=== PATIENT | male | born 1950 | race Caucasian/White ===

== ENCOUNTER 2020-05-29 08:17 | Outpatient (REF) | payer MEDICARE, MEDICAID, SELFPAY ==
[2020-05-29 11:01] LABS: MANUAL DIFF FLAG NO
[2020-05-29 11:09] LABS: Basophils Percent Auto 0.4 % (0-2); Eosinophils Absolute Auto 0.2 X10*3/uL (0.0-0.4); Eosinophils Percent Auto 2.1 % (0-4); Hematocrit 45.4 % (42-52); Hemoglobin 14.4 g/dl (14.0-18.0); Imm Gran Abs Auto 0.04 X10*3/uL (0.00-0.03); Imm Gran Pct Auto 0.4 % (0.0-0.4); Lymphocytes Absolute Auto 2.8 X10*3/uL (1.2-4.9); Lymphocytes Percent Auto 30.5 % (20-40); Mean Corpuscular HGB Conc 31.7 g/dl (31.0-36.0); Mean Corpuscular Hemoglobin 27.7 pg (27.0-33.0); Mean Corpuscular Volume 87.3 fL (80-98); Mean Platelet Volume 10.4 fL (9.4-12.4); Monocytes Absolute Auto 0.8 X10*3/uL (0.1-1.2); Monocytes Percent Auto 8.7 % (2-11); Neutrophils Absolute Auto 5.2 X10*3/uL (2.0-8.3); Neutrophils Percent Auto 57.9 % (45-73); Platelet Count 305 X10*3/uL (160-400); Red Cell Distribution Width 17.6 % (11.0-16.0)
[2020-05-29 11:17] LABS: Estimated Average Glucose 126 mg/dL
[2020-05-29 12:02] LABS: TSH reflex Free T4 1.63 mIU/mL (0.32-4.0)
[2020-05-29 12:08] LABS: Alanine Aminotransferase 15 U/L (0-40); Albumin Level 3.3 g/dL (3.5-5.0); Alkaline Phosphatase 80 U/L (39-117); Anion Gap 11 (12-20); Aspartate Amino Transferase 12 U/L (5-37); Bilirubin Total 0.4 mg/dL (0.0-1.0); Blood Urea Nitrogen 6 mg/dL (9-16); Calcium 8.7 mg/dL (8.4-10.2); Carbon Dioxide 32 mmol/L (22-29); Chloride 101 mmol/L (96-108); Cholesterol 108 mg/dL; Estimated Glomerular Filt Rate > 60; Glucose Fasting 111 mg/dL (60-99); HDL Cholesterol 26 mg/dL; LDL Cholesterol Calculated 67 mg/dl; Potassium 4.7 mmol/l (3.3-5.1); Sodium 139 mmol/L (135-145); Total Protein 6.2 g/dL (6.5-8.0); Triglycerides 75 mg/dL
== END 2020-05-29 08:18 | disposition home or self-care (01) ==
LOC: HO.WFDLDS 08:17
PROVIDERS: Visit Provider Family Medicine
DX: I63.9 Cerebral infarction, unspecified (principal); Z00.00 Encounter for general adult medical examination without abnormal findings; R53.1 Weakness; E11.9 Type 2 diabetes mellitus without complications
CPT/HCPCS: 36415; 80053; 80061; 83036; 84443; 85025

== ENCOUNTER 2020-06-14 10:35 | Outpatient (REF) | payer MEDICARE, MEDICAID, SELFPAY | END 2020-06-14 10:36 | disposition home or self-care (01) | LOC: HO.LNP 10:35 | PROVIDERS: Visit Provider Family Medicine | DX: Z20.828 Contact with and (suspected) exposure to other viral communicable diseases (principal) | CPT/HCPCS: U0003 ==

== ENCOUNTER 2020-07-04 | Outpatient (REF) | payer MEDICARE, MEDICAID, SELFPAY ==
[2020-07-05 18:42] LABS: Glucose Urine UA NEG (NEG); Leukocyte Esterase Urine 1+ (NEG); Nitrite Urine POS (NEG); PH 6.5 (5.0-8.0); Urine Blood 1+ (NEG); Urine Ketones NEG (NEG); Urine Protein NEG (NEG-TRACE)
[2020-07-05 18:45] LABS: Appearance Urine CLEAR; Color Urine YELLOW
[2020-07-05 18:49] LABS: Bacteria Urine 3+ /LPF; WBC Urine 30-49 /HPF (0-4)
== END 2020-07-04 00:01 | disposition home or self-care (01) ==
LOC: HO.LNP
PROVIDERS: Visit Provider Family Medicine
DX: I10 Essential (primary) hypertension (principal)
CPT/HCPCS: 81001

== ENCOUNTER 2020-07-05 18:03 | Outpatient (REF) | payer MEDICARE, MEDICAID, SELFPAY | END 2020-07-05 18:04 | disposition home or self-care (01) | LOC: HO.LNP 18:03 | PROVIDERS: Visit Provider Family Medicine | DX: Z13.89 Encounter for screening for other disorder (principal) ==

== ENCOUNTER 2020-07-09 11:26 | Outpatient (REF) | payer MEDICARE, MEDICAID, SELFPAY ==
[2020-07-09 14:33] LABS: Anion Gap 13 (12-20); Blood Urea Nitrogen 8 mg/dL (9-16); Calcium 8.8 mg/dL (8.4-10.2); Carbon Dioxide 29 mmol/L (22-29); Chloride 103 mmol/L (96-108); Estimated Glomerular Filt Rate > 60; Glucose Random 87 mg/dL (60-115); Potassium 4.3 mmol/l (3.3-5.1); Sodium 141 mmol/L (135-145)
== END 2020-07-09 11:27 | disposition home or self-care (01) ==
LOC: HO.WFDLDS 11:26
PROVIDERS: Visit Provider Family Medicine
DX: Z00.00 Encounter for general adult medical examination without abnormal findings (principal); I10 Essential (primary) hypertension
CPT/HCPCS: 36415; 80048

== ENCOUNTER 2020-07-12 16:00 | Outpatient (REF) | payer SELFPAY | END 2020-07-12 16:01 | disposition home or self-care (01) | LOC: HO.LNP 16:00 | PROVIDERS: Visit Provider Family Medicine | DX: I10 Essential (primary) hypertension (principal) | CPT/HCPCS: 87086 ==

== ENCOUNTER 2020-09-25 14:03 | Outpatient (RCR) | payer MEDICARE, MEDICAID, SELFPAY | END 2020-09-26 09:47 | disposition home or self-care (01) | LOC: HO.WCC 14:03 | PROVIDERS: Visit Provider Physician Assistant | DX: E11.621 Type 2 diabetes mellitus with foot ulcer (principal); L97.519 Non-pressure chronic ulcer of other part of right foot with unspecified severity; I69.354 Hemiplegia and hemiparesis following cerebral infarction affecting left non-dominant side | CPT/HCPCS: 99202 ==

== ENCOUNTER 2021-04-02 13:55 | Outpatient (REF) | payer MEDICARE, MEDICAID, SELFPAY ==
--- NOTE | ~2021-04-02 | XR_ITS ---
EXAMINATION: XR ABDOMEN KUB CLINICAL INDICATION: Diarrhea. COMPARISON: None TECHNIQUE: 10 AP supine views of the abdomen and pelvis are submitted. FINDINGS: There is a moderate stool burden. Gas and stool are identified to the level of the rectum. There are distended small bowel loops, with a maximal caliber of 5.1 cm. No free intraperitoneal air is seen on these supine views. There are no unusual soft tissue calcifications seen. There are right upper quadrant surgical clips. No acute osseous abnormality is seen. There are marked degenerative changes of the lumbar spine and hips. There are aortoiliac atherosclerotic calcifications. XR/XR KUB IMPRESSION: There is a moderate colonic stool burden, suggesting possible constipation. There are multiple distended large and small bowel loops, consistent with an adynamic ileus or obstruction. No free intraperitoneal air is seen on these supine views. Recommend follow-up abdominal radiographs, as clinically indicated. A preliminary report was provided by the [facility] on 04/05/2021.
== END 2021-04-02 13:56 | disposition home or self-care (01) ==
LOC: HO.XRAY 13:55
PROVIDERS: PCP Family Medicine; Visit Provider Family Medicine
DX: R19.7 Diarrhea, unspecified (principal); R14.0 Abdominal distension (gaseous); K59.00 Constipation, unspecified
CPT/HCPCS: 74018

== ENCOUNTER 2021-04-08 16:44 | Inpatient (IN) | payer MEDICARE, MEDICAID, SELFPAY ==
--- NOTE | ~2021-04-08 | XR_ITS ---
EXAMINATION: XR CHEST CLINICAL INFORMATION: AMS COMPARISON: None TECHNIQUE: Frontal view of the chest was obtained. FINDINGS: There is mild cardiomegaly with normal pulmonary vascularity. There is ectasia of the thoracic arch. The lungs are expanded and clear. No pleural effusion seen. No gross bony abnormality. XR/XR chest 1V IMPRESSION: Cardiomegaly with ectatic thoracic arch. The lungs are clear.
[2021-04-08 17:02] VITALS: BP 147/78; PULSE 76; RESP 16; TEMP 36.7; O2SAT 96; BMI 33.3
--- NOTE | 2021-04-08 17:16 | ED_ITS ---
HPI - Altered Mental Status General Chief Complaint: General Medical Stated Complaint: crisis Time Seen by Provider: 04/08/21 20:15 Source: patient and EMS Mode of arrival: EMS Limitations: altered mental status History of Present Illness HPI narrative: 70-year-old male presents via EMS, retirement resident with chr gloria Graff, sent to the ED for evaluation from primary care physician's office for visual and possible auditory hallucinations. Patient stated that he feels like that he is floating, that when he wakes up he feels like that his room is above the ground and that he is floating in a cloud. States that this has been going on for the past 3 or 4 days. 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 He is a poor historian. MD complaint: altered mental status and confusion Onset (ago): day(s) Timing confirmed by: caregiver Severity: moderate Consistency of symptoms: waxing and waning Context: unknown Associated symptoms: denies other symptoms Related Data Home Medications Medication Instructions Recorded Confirmed varicella-zoster glycoE [id number] IM 06/13/20 03/21/21 adj(PF) 50 mcg/0.5 mL IM susp, kit fluoxetine 10 mg capsule mg PO 07/11/20 03/21/21 Previous Rx's Medication Instructions Recorded carbamide peroxide 6.5 % ear drops 5 drp OTIC (EAR) LEFT .COMPLEX PRN 05/28/20 (Debrox) 4 Days #30 ml atorvastatin 20 mg tablet (Lipitor) 20 mg PO BEDTIME #90 tab 06/04/20 acetaminophen 325 mg tablet 650 mg PO Q4H PRN #240 tab 07/04/20 (Tylenol) amlodipine 10 mg tablet 10 mg PO DAILY 90 Days #90 tab 07/04/20 fluoxetine 40 mg capsule 50 mg PO DAILY #90 cap 07/04/20 dextromethorphan-guaifenesin 10 10 ml PO Q6H PRN 30 Days #500 ml 07/19/20 mg-100 mg/5 mL oral liquid (Siltussin DM HOWARD) sennosides 8.6 mg capsule (senna) 8.6 mg PO Q24H PRN #90 cap 07/23/20 metoprolol succinate 50 mg 50 mg PO DAILY 90 Days #90 tab 07/31/20 tablet,extended release 24 hr docusate sodium 100 mg capsule 100 mg PO BID #180 cap 08/23/20 (Colace) diclofenac sodium 1 % topical gel 4 g TOPICAL BID 30 Days #400 g 10/29/20 (Arthritis Pain (diclofenac)) budesonide-formoterol HFA 160 2 puff INHALATION BID #10.2 g 01/29/21 mcg-4.5 mcg/actuation aerosol inhaler (Symbicort) pregabalin 200 mg capsule 200 mg PO BID 30 Days #60 cap 01/29/21 aspirin 81 mg tablet,delayed 81 mg PO DAILY #90 tab 02/25/21 release (Adult Aspirin Regimen) ferrous sulfate 325 mg (65 mg 325 mg PO DAILY #90 tab 02/25/21 iron) tablet folic acid 1 mg tablet 1 mg PO DAILY #90 tab 02/25/21 metformin 500 mg tablet 500 mg PO DAILY #90 tab 02/25/21 tamsulosin 0.4 mg capsule (Flomax) 0.4 mg PO BEDTIME #90 cap 02/25/21 baclofen 10 mg tablet 10 mg PO TID 90 Days #270 tab 03/06/21 baclofen 20 mg tablet 20 mg PO TID 90 Days #270 tab 03/06/21 bisacodyl 10 mg/30 mL enema (Fleet 5 mg HI DAILY PRN 30 Days #888 ml 03/15/21 Bisacodyl) magnesium hydroxide 400 mg/5 mL 30 ml PO BEDTIME PRN 30 Days #900 03/15/21 oral suspension (Milk of Magnesia) ml sennosides 8.6 mg tablet (Natural 8.6 mg PO BEDTIME PRN 30 Days #30 03/15/21 Senna Laxative) tab zinc oxide 13 % topical cream 1 appl TOPICAL BID-QID PRN 30 Days 03/21/21 (Desitin Rapid Relief) #57 g apixaban 5 mg tablet (Eliquis) 5 mg PO BID 30 Days #60 tab 03/27/21 thiamine HCl (vitamin B1) 100 mg 100 mg PO DAILY #90 tab 03/27/21 tablet Allergies Allergy/AdvReac Type Severity Reaction Status Date / Time No Known Allergies Allergy Verified 03/21/21 16:22 Review of Systems Review of Systems: Constitutional: Positive confusion, No Fever, No Chills ENT/Mouth: No Ear Pain, No Nasal Congestion, No sore throat Eyes: No Eye Pain, No Swelling, No Redness Cardiovascular: No Chest Pain, No SOB Respiratory: No Cough, No Sputum, No Dyspnea Gastrointestinal: No Nausea, No Vomiting, No Diarrhea, No Hematochezia, No Melena Genitourinary: Chronic Graff Musculoskeletal: No Myalgias Skin: No Skin Lesions, No rash Neuro: Chronic left-sided Weakness, No Numbness, No Paresthesias, No Dizziness, No Headache Psych: Positive visual and auditory hallucinations, Anxiety, no Depression, no SI/HI Heme/Lymph: No Lymphadenopathy Endocrine: No Polyuria, No Polydipsia Yes all other systems are reviewed and are negative [facility] Past Medical History Attestation statement: The following information was validated with the patient. Source: old records reviewed Surgical History History of cholecystectomy Family History Family History Mother No problems noted. Father No problems noted. Social History Social History Alcohol intake: current Alcohol intake frequency: 0-2 drinks per day Cigarettes Per Day: 6 Advance Directives: No Advance Directives Information Provided: No Physical Exam Vital Signs: Vital Signs: Last Vital Signs Temp 98.1 F 04/08/21 17:02 Pulse 76 04/08/21 17:02 Resp 16 04/08/21 17:02 BP 147/78 H 04/08/21 17:02 Pulse Ox 96 04/08/21 17:02 Body Mass Index 33.3 Appearance: Alert. Oriented x2. No acute distress. Eyes: Pupils equal, round and reactive to light. No nystagmus. Sclera nonicteric. ENT: Pharynx normal. Moist mucous membranes. Neck: Normal inspection. Neck supple. CVS: Normal heart rate and rhythm. Pulses normal. Respiratory: No respiratory distress. Breath sounds normal. Abdomen: Soft and nontender. Obese. Skin: Skin warm and dry. Normal skin color. Normal skin turgor. Extremities: No lower extremity edema. Left-sided contracture per baseline. Nonambulatory. Neuro: No motor deficit. No sensory deficit. Course Course Course Narrative: 70-year-old male [facility] care physician's office for altered mental status. States that he has been waking up in the middle night and feels like his room is floating and air, and has felt like this for the past few days. He does have history of CVA, chronic Graff. Patient is nonambulatory per baseline, has left-sided contracture. Triage initial complaint is crisis eval, I do not feel that this is an appropriate chief complaint, I feel this is more altered mental status and more medically based and psychologically based. Crisis consult will not be ordered at this time. 7:24 p.m. labs still pending draw. 8:14 p.m. urinalysis positive for leukocyte esterase, will start Levaquin as patient does have Graff. Will start fluid resuscitation empirically. 9:45 p.m. discussion with hospitalist, plan of care is to admit for UTI. Consultations Consultation #1: Eliana Time: 21:45 MDM - Altered Mental Status MDM Narrative Medical decision making narrative: UTI Differential Diagnosis Differential diagnosis: Likely altered mental status, delirium, dementia, encephalopathy, hypoglycemia, renal failure and sepsis Medical Records Attestation: I reviewed the patient's medical records. Lab Data Attestation: I reviewed the patient's lab results. Result diagrams: 04/08/21 20:19 04/08/21 20:17 Labs: Lab Results 04/08/21 04/08/21 04/08/21 Range/Units 20:02 20:02 20:17 WBC (4.8-10.8) X10*3/uL RBC (4.60-5.80) X10*6/uL Hgb (14.0-18.0) g/dl Hct (42-52) % MCV (80-98) fL MCH (27.0-33.0) pg MCHC (31.0-36.0) g/dl RDW (11.0-16.0) % Plt Count (160-400) X10*3/uL MPV (9.4-12.4) fL Immature Gran % (Auto) (0.0-0.4) % Neut % (Auto) (45-73) % Lymph % (Auto) (20-40) % [place] % (Auto) (2-11) % Eos % (Auto) (0-4) % Baso % (Auto) (0-2) % Lymph # (Auto) (1.2-4.9) X10*3/uL [place] # (Auto) (0.1-1.2) X10*3/uL Eos # (Auto) (0.0-0.4) X10*3/uL Baso # (Auto) (0.0-0.2) X10*3/uL Abs Immat Gran (auto) (0.00-0.03) X10*3/uL Absolute Neuts (auto) (2.0-8.3) X10*3/uL Absolute Nucleated RBC (0.0-0.012) X10*3/uL Nucleated RBC % (auto) (0.0-0.2) /100WBC Sodium 139 (135-145) mmol/L Potassium 4.0 (3.3-5.1) mmol/L Chloride 106 (96-108) mmol/L Carbon Dioxide 27 (22-29) mmol/L Anion Gap 10 L (12-20) BUN 8 L (9-16) mg/dL Creatinine 0.62 (0.5-1.4) mg/dL Estim Creat Clear Calc 155.6 Estimated GFR > 60 Random Glucose 94 (60-115) mg/dL Lactic Acid (0.5-2.0) mmol/L Calcium 8.8 (8.4-10.2) mg/dL Total Bilirubin 0.3 (0.0-1.0) mg/dL Direct Bilirubin 0.2 (0.0-0.5) mg/dL AST 10 (5-37) U/L ALT 14 (0-40) U/L Alkaline Phosphatase 67 (39-117) U/L Troponin I High Sens (<3.5-35.0) ng/L Total Protein 6.2 L (6.5-8.0) g/dL Albumin 3.3 L (3.5-5.0) g/dL Lipase 21 (8-78) U/L Urine Color YELLOW Urine Appearance CLEAR Urine pH 6.5 (5.0-8.0) Ur Specific [place] 1.020 (1.005-1.025) Urine Protein TRACE (NEG-TRACE) MG/DL Urine Glucose (UA) NEG (NEG) MG/DL Urine Ketones NEG (NEG) MG/DL Urine Blood TRACE (NEG) Urine Nitrite NEG (NEG) Ur Leukocyte Esterase 3+ H (NEG) Urine RBC 1-4 (0) /HPF Urine WBC 15-29 H (0-4) /HPF Ur Squamous Epith Cells TRACE /LPF Urine Bacteria 3+ /LPF Coronavirus (PCR) NEGATIVE (Negative) Influenza Type A (PCR) NEGATIVE (Negative) Influenza Type B (PCR) NEGATIVE (Negative) RSV RNA Qual (PCR) NEGATIVE (Negative) 04/08/21 04/08/21 04/08/21 Range/Units 20:17 20:19 20:19 WBC 10.2 (4.8-10.8) X10*3/uL RBC 4.26 L (4.60-5.80) X10*6/uL Hgb 10.7 L D (14.0-18.0) g/dl Hct 33.7 L D (42-52) % MCV 79.1 L (80-98) fL MCH 25.1 L (27.0-33.0) pg MCHC 31.8 (31.0-36.0) g/dl RDW 18.7 H (11.0-16.0) % Plt Count 464 H D (160-400) X10*3/uL MPV 9.5 (9.4-12.4) fL Immature Gran % (Auto) 0.3 (0.0-0.4) % Neut % (Auto) 63.6 (45-73) % Lymph % (Auto) 25.4 (20-40) % [place] % (Auto) 8.7 (2-11) % Eos % (Auto) 1.7 (0-4) % Baso % (Auto) 0.3 (0-2) % Lymph # (Auto) 2.6 (1.2-4.9) X10*3/uL [place] # (Auto) 0.9 (0.1-1.2) X10*3/uL Eos # (Auto) 0.2 (0.0-0.4) X10*3/uL Baso # (Auto) 0.0 (0.0-0.2) X10*3/uL Abs Immat Gran (auto) 0.03 (0.00-0.03) X10*3/uL Absolute Neuts (auto) 6.5 (2.0-8.3) X10*3/uL Absolute Nucleated RBC 0.000 (0.0-0.012) X10*3/uL Nucleated RBC % (auto) 0.0 (0.0-0.2) /100WBC Sodium (135-145) mmol/L Potassium (3.3-5.1) mmol/L Chloride (96-108) mmol/L Carbon Dioxide (22-29) mmol/L Anion Gap (12-20) BUN (9-16) mg/dL Creatinine (0.5-1.4) mg/dL Estim Creat Clear Calc Estimated GFR Random Glucose (60-115) mg/dL Lactic Acid 1.1 (0.5-2.0) mmol/L Calcium (8.4-10.2) mg/dL Total Bilirubin (0.0-1.0) mg/dL Direct Bilirubin (0.0-0.5) mg/dL AST (5-37) U/L ALT (0-40) U/L Alkaline Phosphatase (39-117) U/L Troponin I High Sens 37.2 H* (<3.5-35.0) ng/L Total Protein (6.5-8.0) g/dL Albumin (3.5-5.0) g/dL Lipase (8-78) U/L Urine Color Urine Appearance Urine pH (5.0-8.0) Ur Specific [place] (1.005-1.025) Urine Protein (NEG-TRACE) MG/DL Urine Glucose (UA) (NEG) MG/DL Urine Ketones (NEG) MG/DL Urine Blood (NEG) Urine Nitrite (NEG) Ur Leukocyte Esterase (NEG) Urine RBC (0) /HPF Urine WBC (0-4) /HPF Ur Squamous Epith Cells /LPF Urine Bacteria /LPF Coronavirus (PCR) (Negative) Influenza Type A (PCR) (Negative) Influenza Type B (PCR) (Negative) RSV RNA Qual (PCR) (Negative) Imaging Data Chest x-ray: Attestation: I personally reviewed and interpreted this imaging study as follows: Radiologist's impression: EXAMINATION: XR CHEST CLINICAL INFORMATION: AMS COMPARISON: None TECHNIQUE: Frontal view of the chest was obtained. FINDINGS: There is mild cardiomegaly with normal pulmonary vascularity. There is ectasia of the thoracic arch. The lungs are expanded and clear. No pleural effusion seen. No gross bony abnormality. XR/XR chest 1V IMPRESSION: Cardiomegaly with ectatic thoracic arch. The lungs are clear. ECG Data ECG #1: Attestation: I personally reviewed and interpreted this ECG as follows: ECG interpretation date: 04/08/21 ECG interpretation time: 20:09 Prior ECG tracings: not available for review Interpretation: Vent. rate 73 BPM HI interval * ms QRS duration 72 ms QT/QTc 438/482 ms P-R-T axes * 52 97 Accelerated Junctional rhythm Nonspecific T wave abnormality Abnormal ECG No previous ECGs available Critical Care Time Critical Care Time Critical Care Time: Yes Total Critical Care Time: 45 Attestation: I have personally provided critical care time exclusive of time spent on separately billable procedures. Time includes review of laboratory data, radiology results, discussion with consultants, and monitoring for potential decompensation. Interventions were performed as documented. Discharge Plan Discharge Clinical Impression: Complicated UTI (urinary tract infection) Patient Disposition: Admitted As Inpatient
--- NOTE | 2021-04-08 17:17 | ECG_ITS ---
Test Reason : ALTERED MENTAL Blood Pressure : / mmHG Vent. Rate : 073 BPM Atrial Rate : 500 BPM P-R Int : 000 ms QRS Dur : 072 ms QT Int : 438 ms P-R-T Axes : 000 052 097 degrees QTc Int : 482 ms Poor data quality, interpretation may be adversely affected Normal sinus rhythm Nonspecific T wave abnormality Abnormal ECG No previous ECGs available Referred By: Sandi Fortune Electronically Signed By:MOISES AYALA
[2021-04-08 20:11] LABS: Appearance Urine CLEAR; Color Urine YELLOW; Glucose Urine UA NEG (NEG); Leukocyte Esterase Urine 3+ (NEG); Nitrite Urine NEG (NEG); PH 6.5 (5.0-8.0); UACC Culture Trigger YES; Urine Blood TRACE (NEG); Urine Ketones NEG (NEG); Urine Protein TRACE MG/DL (NEG-TRACE)
[2021-04-08 20:19] LABS: Squamous Epithelial Cell Urine TRACE /LPF
[2021-04-08 20:21] LABS: Bacteria Urine 3+ /LPF
[2021-04-08 20:26] LABS: MANUAL DIFF FLAG NO
[2021-04-08 20:30] LABS: Basophils Percent Auto 0.3 % (0-2); Eosinophils Absolute Auto 0.2 X10*3/uL (0.0-0.4); Eosinophils Percent Auto 1.7 % (0-4); Hematocrit 33.7 % (42-52); Hemoglobin 10.7 g/dl (14.0-18.0); Imm Gran Abs Auto 0.03 X10*3/uL (0.00-0.03); Imm Gran Pct Auto 0.3 % (0.0-0.4); Lymphocytes Absolute Auto 2.6 X10*3/uL (1.2-4.9); Lymphocytes Percent Auto 25.4 % (20-40); Mean Corpuscular HGB Conc 31.8 g/dl (31.0-36.0); Mean Corpuscular Hemoglobin 25.1 pg (27.0-33.0); Mean Corpuscular Volume 79.1 fL (80-98); Mean Platelet Volume 9.5 fL (9.4-12.4); Monocytes Absolute Auto 0.9 X10*3/uL (0.1-1.2); Monocytes Percent Auto 8.7 % (2-11); Neutrophils Absolute Auto 6.5 X10*3/uL (2.0-8.3); Neutrophils Percent Auto 63.6 % (45-73); Platelet Count 464 X10*3/uL (160-400); Red Blood Count 4.26 X10*6/uL (4.60-5.80); Red Cell Distribution Width 18.7 % (11.0-16.0); White Blood Count 10.2 X10*3/uL (4.8-10.8)
[2021-04-08 20:40] LABS: Lactic Acid 1.1 mmol/L (0.5-2.0)
[2021-04-08 20:45] LABS: Alanine Aminotransferase 14 U/L (0-40); Albumin Level 3.3 g/dL (3.5-5.0); Alkaline Phosphatase 67 U/L (39-117); Anion Gap 10 (12-20); Aspartate Amino Transferase 10 U/L (5-37); Bilirubin Direct 0.2 mg/dL (0.0-0.5); Bilirubin Total 0.3 mg/dL (0.0-1.0); Blood Urea Nitrogen 8 mg/dL (9-16); Calcium 8.8 mg/dL (8.4-10.2); Carbon Dioxide 27 mmol/L (22-29); Chloride 106 mmol/L (96-108); Creatinine Clr Calc Pharmacy 155.6; Estimated Glomerular Filt Rate > 60; Glucose Random 94 mg/dL (60-115); Lipase 21 U/L (8-78); Sodium 139 mmol/L (135-145); Total Protein 6.2 g/dL (6.5-8.0)
[2021-04-08] MEDS: 0.9 % Sodium Chloride 1,000 ML 999 ML IVCONT (20:50)
[2021-04-08 20:54] LABS: Troponin-I High Sensitivity 37.2 ng/L (<3.5-35.0)
[2021-04-08] MEDS: levoFLOXacin/D5W 750 MG/150 ML PIGGYBACK 100 MG IV (21:02)
[2021-04-08 21:19] LABS: Influenza A PCR NEGATIVE (Negative); Influenza B PCR NEGATIVE (Negative); Resp Syncy Virus RNA Qual PCR NEGATIVE (Negative); SARS COV2 PCR INHOUSE NEGATIVE (Negative)
[2021-04-09 02:55] LABS: Amphetamine Screen Urine Not Detected (Not Detect); Barbiturates, Urine Not Detected (Not Detect); Benzodiazepines Screen Urine Not Detected (Not Detect); Cannabinoid Screen Urine Not Detected (Not Detect); Cocaine Screen Urine Not Detected (Not Detect); Fentanyl, urine POSITIVE (Not Detect); Opiate Screen Urine Not Detected (Not Detect); Phencyclidine Screen Urine Not Detected (Not Detect)
--- NOTE | 2021-04-09 06:13 | P.HPHOSP_ITS ---
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 Patient is alert and oriented x3, but reports that he has been seeing things. For the past 2 days. He reports no auditory hallucinations. He does report also drinking alcohol daily about 1 nebs a day, his last drink was 2 days ago and that was due to his inability to obtain any alcohol at [place] [facility]. Patient denies having any fevers or chills, no chest pain, no shortness of breath, no abdominal pain nausea or vomiting, no diarrhea or constipation, no lower extremity edema. No headache change in vision or new weakness numbness or tingling. On arrival to the ED patient hemodynamically stable with no significant abnormal vitals Labs are significant for WBC of 10.2, hemoglobin of 10.7, troponin of 37.2, patient denies any chest pain UA that is positive fo leukocyte Estrace and WBC, UDS positive for fentanyl, COVID-19 negative Patient will be admitted for further management Review of Systems Review of Systems: Yes all other systems are reviewed and are negative [facility] Medical History COPD (chronic obstructive pulmonary disease) CVA (cerebral vascular accident) Diabetes type 2, controlled DVT (deep venous thrombosis) Essential hypertension Ileus Incontinence of feces Incontinence of urine Pressure ulcer, buttock Spastic paralysis Family History Mother No problems noted. Father No problems noted. Pertinent family history: No pertinent history Surgical History History of cholecystectomy Social History Alcohol intake: current Alcohol intake frequency: 0-2 drinks per day Cigarettes Per Day: 6 Advance Directives: No Advance Directives Information Provided: No Meds Allergies Allergy/AdvReac Type Severity Reaction Status Date / Time No Known Allergies Allergy Verified 03/21/21 16:22 Home Medications Medication Instructions Recorded Confirmed Last Taken Type fluoxetine 10 mg capsule 10 mg PO DAILY 07/11/20 04/09/21 Unknown History budesonide-formoterol HFA 160 2 puff INHALATION DAILY 04/09/21 04/09/21 Unknown History mcg-4.5 mcg/actuation aerosol inhaler (Symbicort) clonazepam 0.5 mg tablet 1 tab PO BID PRN 04/09/21 04/09/21 Unknown History gabapentin 100 mg capsule 2 cap PO DAILY 04/09/21 04/09/21 Unknown History losartan 100 mg tablet 1 tab PO DAILY 04/09/21 04/09/21 Unknown History spironolactone 25 mg tablet 1 tab PO BID 04/09/21 04/09/21 Unknown History Physical Exam Vital Signs and Narrative: Vital Signs: Last Vital Signs Temp 98.1 F 04/08/21 17:02 Pulse 76 04/08/21 17:02 Resp 16 04/08/21 17:02 BP 147/78 H 04/08/21 17:02 Pulse Ox 96 04/08/21 17:02 Body Mass Index 33.3 Results Labs CBC and Chem 7: 04/08/21 20:19 04/08/21 20:17 Labs: Laboratory Results - last 24 hr 04/08/21 04/08/21 04/08/21 20:02 20:02 20:17 MCV MCH MCHC RDW Plt Count MPV Immature Gran % (Auto) Neut % (Auto) Lymph % (Auto) [place] % (Auto) Eos % (Auto) Baso % (Auto) Lymph # (Auto) [place] # (Auto) Eos # (Auto) Baso # (Auto) Abs Immat Gran (auto) Absolute Neuts (auto) Absolute Nucleated RBC Nucleated RBC % (auto) Anion Gap 10 L Estim Creat Clear Calc 155.6 Estimated GFR > 60 Random Glucose 94 Lactic Acid Calcium 8.8 Total Bilirubin 0.3 Direct Bilirubin 0.2 AST 10 ALT 14 Alkaline Phosphatase 67 Troponin I High Sens Total Protein 6.2 L Albumin 3.3 L Lipase 21 Urine Color YELLOW Urine Appearance CLEAR Urine pH 6.5 Ur Specific [place] 1.020 Urine Protein TRACE Urine Glucose (UA) NEG Urine Ketones NEG Urine Blood TRACE Urine Nitrite NEG Ur Leukocyte Esterase 3+ H Urine RBC 1-4 Urine WBC 15-29 H Ur Squamous Epith Cells TRACE Urine Bacteria 3+ Urine Opiates Screen Urine Fentanyl Screen Ur Barbiturates Screen Ur Phencyclidine Scrn Ur Amphetamines Screen U Benzodiazepines Scrn Urine Cocaine Screen U Marijuana (THC) Screen Coronavirus (PCR) NEGATIVE Influenza Type A (PCR) NEGATIVE Influenza Type B (PCR) NEGATIVE RSV RNA Qual (PCR) NEGATIVE 04/08/21 04/08/21 04/08/21 20:17 20:19 20:19 MCV 79.1 L MCH 25.1 L MCHC 31.8 RDW 18.7 H Plt Count 464 H D MPV 9.5 Immature Gran % (Auto) 0.3 Neut % (Auto) 63.6 Lymph % (Auto) 25.4 [place] % (Auto) 8.7 Eos % (Auto) 1.7 Baso % (Auto) 0.3 Lymph # (Auto) 2.6 [place] # (Auto) 0.9 Eos # (Auto) 0.2 Baso # (Auto) 0.0 Abs Immat Gran (auto) 0.03 Absolute Neuts (auto) 6.5 Absolute Nucleated RBC 0.000 Nucleated RBC % (auto) 0.0 Anion Gap Estim Creat Clear Calc Estimated GFR Random Glucose Lactic Acid 1.1 Calcium Total Bilirubin Direct Bilirubin AST ALT Alkaline Phosphatase Troponin I High Sens 37.2 H* Total Protein Albumin Lipase Urine Color Urine Appearance Urine pH Ur Specific [place] Urine Protein Urine Glucose (UA) Urine Ketones Urine Blood Urine Nitrite Ur Leukocyte Esterase Urine RBC Urine WBC Ur Squamous Epith Cells Urine Bacteria Urine Opiates Screen Urine Fentanyl Screen Ur Barbiturates Screen Ur Phencyclidine Scrn Ur Amphetamines Screen U Benzodiazepines Scrn Urine Cocaine Screen U Marijuana (THC) Screen Coronavirus (PCR) Influenza Type A (PCR) Influenza Type B (PCR) RSV RNA Qual (PCR) 04/09/21 01:52 MCV MCH MCHC RDW Plt Count MPV Immature Gran % (Auto) Neut % (Auto) Lymph % (Auto) [place] % (Auto) Eos % (Auto) Baso % (Auto) Lymph # (Auto) [place] # (Auto) Eos # (Auto) Baso # (Auto) Abs Immat Gran (auto) Absolute Neuts (auto) Absolute Nucleated RBC Nucleated RBC % (auto) Anion Gap Estim Creat Clear Calc Estimated GFR Random Glucose Lactic Acid Calcium Total Bilirubin Direct Bilirubin AST ALT Alkaline Phosphatase Troponin I High Sens Total Protein Albumin Lipase Urine Color Urine Appearance Urine pH Ur Specific [place] Urine Protein Urine Glucose (UA) Urine Ketones Urine Blood Urine Nitrite Ur Leukocyte Esterase Urine RBC Urine WBC Ur Squamous Epith Cells Urine Bacteria Urine Opiates Screen Not Detected Urine Fentanyl Screen POSITIVE H Ur Barbiturates Screen Not Detected Ur Phencyclidine Scrn Not Detected Ur Amphetamines Screen Not Detected U Benzodiazepines Scrn Not Detected Urine Cocaine Screen Not Detected U Marijuana (THC) Screen Not Detected Coronavirus (PCR) Influenza Type A (PCR) Influenza Type B (PCR) RSV RNA Qual (PCR) ECG Interpretation: Accelerated junctional rhythm with nonspecific T-wave abnormality Imaging Radiologist's Impressions: Impressions Chest X-Ray 04/08/21 17:16 IMPRESSION: Cardiomegaly with ectatic thoracic arch. The lungs are clear. Assessment and Plan (1) Complicated UTI (urinary tract infection): Status: Acute (2) Visual hallucinations: Status: Acute (3) Alcohol abuse: Status: Acute 70-year-old male with past medical history significant for COPD, diabetes, hypertension among others as well as CVA with left-sided hemiparesis and spastic score is does complain of visual hallucinations found to have acute UTI # UTI - has chronic Graff catheter stew to his urinary incontinence for patient - positive UA - will start him on IV antibiotics - follow cultures # visual hallucinations - most likely secondary to acute infection versus alcohol withdrawal delirium less likely versus poly polypharmacy - treat UTI as above - will also place patient on phenobarb for possible alcohol withdrawal - monitor for resolution # alcohol abuse with potential for alcohol withdrawal - patient daily drinker with last drink 2 days ago - will start him on phenobarb protocol - thiamine and folic acid supplement # hypertension - stable - continue home medications # diabetes - hold oral antihyperglycemics - will place him on low-dose sliding scale insulin - diabetic diet # patient on multiple psych medications as well as QT prolonging medications, QT is slightly prolonged at 482 - will have to monitor on telemetry # spastic paralysis - continue baclofen # history of DVT - continue apixaban DVT prophylaxis: Apixaban Quality Stroke Does the patient have a stroke diagnosis?: No VTE Prior VTE?: No VTE Risk Level:: Medical - moderate - high VTE Device Contraindication: Treatment Not Indicated VTE Drug Contraindication: N/A - Med Ordered
[2021-04-09 08:03] LABS: Glucose, Whole Blood 92 mg/dL (60-115)
--- NOTE | 2021-04-09 08:46 | P.PNIM_ITS ---
Subjective Subjective Date of Service: 04/09/21 Interval History: cc: hallucincations currently denying hallucincations, but says he was having them before, does not appear to be delusional, denies dysuria Cardiovascular Cardiovascular: Reports no additional cardiovascular complaints Respiratory Respiratory: Reports no additional respiratory complaints Physical Exam Vital Signs: Vital Signs: Last Vital Signs Temp 98.1 F 04/08/21 17:02 Pulse 76 04/08/21 17:02 Resp 16 04/08/21 17:02 BP 147/78 H 04/08/21 17:02 Pulse Ox 96 04/08/21 17:02 Body Mass Index 33.3 General: AO X 2 - did not know he was in hospital, no acute distress Resp: CTA bilateral, no accessory muscles used CVS: S1,S2,RRR GI: soft, non tender, non distended Neuro: left hemiparesis, contractions on lue Psych: flat affect, reports visual hallucinations, though not currently Objective Data Active Medications Amlodipine Besylate (Amlodipine Besylate 10 Mg Tablet) 10 mg PO DAILY [facility]; Protocol Apixaban (Apixaban 5 Mg Tablet) 5 mg PO BID [facility] Aspirin (Aspirin 81 Mg Tab.Chew) 81 mg PO DAILY [facility] Atorvastatin Calcium (Atorvastatin Calcium 20 Mg Tablet) 20 mg PO BEDTIME [facility] Baclofen (Baclofen 10 Mg Tablet) 30 mg PO TID [facility] Clonazepam (Clonazepam 0.5 Mg Tablet) 0.5 mg PO BID PRN PRN Reason: Anxiety Dextrose (Dextrose 50 % 25 Gm/50 Ml Vial) 25 gm IVPUSH Q15M PRN; Protocol PRN Reason: per Hypoglycemia Standing Ord. Ferrous Sulfate (Ferrous Sulfate 324 Mg Tablet.Dr) 324 mg PO DAILY [facility] Fluoxetine HCl (Fluoxetine Hcl 10 Mg Capsule) 50 mg PO DAILY [facility] Fluoxetine HCl (Fluoxetine Hcl 20 Mg Capsule) 1,600 mg PO DAILY [facility] Folic Acid (Folic Acid 1 Mg Tablet) 1 mg PO DAILY [facility] Gabapentin (Gabapentin 100 Mg Capsule) 200 mg PO DAILY [facility] Glucose (Glucose Gel 15 Gm Gel..Gram.) 15 gm PO Q15M PRN; Protocol PRN Reason: per Hypoglycemia Standing Ord. Insulin Human Lispro (Insulin Lispro 100 Unit/Ml 3 Ml Vial) 0 unit SUBCUT QIDACHS [facility]; Protocol Losartan Potassium (Losartan Potassium 50 Mg Tablet) 100 mg PO DAILY [facility]; Protocol Magnesium Hydroxide (Milk Of Magnesia 30 Ml Oral.Susp) 30 ml PO BEDTIME PRN PRN Reason: constipation Medication (No Benzodiazepines) 1 each MISCELLANE DAILY [facility] Metoprolol Succinate (Metoprolol Succinate Er 50 Mg Tab.Er.24h) 50 mg PO DAILY [facility]; Protocol Non-Formulary Medication (Budesonide-Formoterol [Symbicort]) 2 puff INHALE DAILY [facility] Non-Formulary Medication (Diclofenac Sodium [Arthritis Pain (Diclofenac)]) 4 gm TOPICAL BID [facility] Non-Formulary Medication (Zinc Oxide) 1 appl TOPICAL 8XD PRN PRN Reason: INCONTIENCE Phenobarbital (Phenobarbital 30 Mg Tablet) 60 mg PO BID [facility]; Protocol Stop: 04/11/21 09:01 Phenobarbital (Phenobarbital 30 Mg Tablet) 30 mg PO BID [facility]; Protocol Stop: 04/13/21 09:01 Phenobarbital (Phenobarbital 30 Mg Tablet) 30 mg PO DAILY [facility]; Protocol Stop: 04/15/21 09:01 Phenobarbital Sodium (Phenobarbital Sodium 130 Mg/Ml Vial) 263 mg IM ONCE ONE; Protocol Stop: 04/09/21 09:01 Phenobarbital Sodium (Phenobarbital Sodium 130 Mg/Ml Vial) 197 mg IM Q3H [facility]; Protocol Stop: 04/09/21 15:01 Pregabalin (Pregabalin 200 Mg Capsule) 200 mg PO BID [facility] Spironolactone (Spironolactone 25 Mg Tablet) 25 mg PO BID [facility]; Protocol Tamsulosin HCl (Tamsulosin Hcl 0.4 Mg Capsule) 0.4 mg PO BEDTIME [facility] Thiamine HCl (Thiamine Hcl 100 Mg Tablet) 100 mg PO DAILY [facility] Labs CBC & Chem 7: 04/08/21 20:19 04/08/21 20:17 Labs: Laboratory Results - last 24 hr 04/08/21 04/08/21 04/08/21 20:02 20:02 20:17 MCV MCH MCHC RDW Plt Count MPV Immature Gran % (Auto) Neut % (Auto) Lymph % (Auto) [place] % (Auto) Eos % (Auto) Baso % (Auto) Lymph # (Auto) [place] # (Auto) Eos # (Auto) Baso # (Auto) Abs Immat Gran (auto) Absolute Neuts (auto) Absolute Nucleated RBC Nucleated RBC % (auto) Anion Gap 10 L Estim Creat Clear Calc 155.6 Estimated GFR > 60 POC Glucose Random Glucose 94 Lactic Acid Calcium 8.8 Total Bilirubin 0.3 Direct Bilirubin 0.2 AST 10 ALT 14 Alkaline Phosphatase 67 Troponin I High Sens Total Protein 6.2 L Albumin 3.3 L Lipase 21 Urine Color YELLOW Urine Appearance CLEAR Urine pH 6.5 Ur Specific [place] 1.020 Urine Protein TRACE Urine Glucose (UA) NEG Urine Ketones NEG Urine Blood TRACE Urine Nitrite NEG Ur Leukocyte Esterase 3+ H Urine RBC 1-4 Urine WBC 15-29 H Ur Squamous Epith Cells TRACE Urine Bacteria 3+ Urine Opiates Screen Urine Fentanyl Screen Ur Barbiturates Screen Ur Phencyclidine Scrn Ur Amphetamines Screen U Benzodiazepines Scrn Urine Cocaine Screen U Marijuana (THC) Screen Coronavirus (PCR) NEGATIVE Influenza Type A (PCR) NEGATIVE Influenza Type B (PCR) NEGATIVE RSV RNA Qual (PCR) NEGATIVE 04/08/21 04/08/21 04/08/21 20:17 20:19 20:19 MCV 79.1 L MCH 25.1 L MCHC 31.8 RDW 18.7 H Plt Count 464 H D MPV 9.5 Immature Gran % (Auto) 0.3 Neut % (Auto) 63.6 Lymph % (Auto) 25.4 [place] % (Auto) 8.7 Eos % (Auto) 1.7 Baso % (Auto) 0.3 Lymph # (Auto) 2.6 [place] # (Auto) 0.9 Eos # (Auto) 0.2 Baso # (Auto) 0.0 Abs Immat Gran (auto) 0.03 Absolute Neuts (auto) 6.5 Absolute Nucleated RBC 0.000 Nucleated RBC % (auto) 0.0 Anion Gap Estim Creat Clear Calc Estimated GFR POC Glucose Random Glucose Lactic Acid 1.1 Calcium Total Bilirubin Direct Bilirubin AST ALT Alkaline Phosphatase Troponin I High Sens 37.2 H* Total Protein Albumin Lipase Urine Color Urine Appearance Urine pH Ur Specific [place] Urine Protein Urine Glucose (UA) Urine Ketones Urine Blood Urine Nitrite Ur Leukocyte Esterase Urine RBC Urine WBC Ur Squamous Epith Cells Urine Bacteria Urine Opiates Screen Urine Fentanyl Screen Ur Barbiturates Screen Ur Phencyclidine Scrn Ur Amphetamines Screen U Benzodiazepines Scrn Urine Cocaine Screen U Marijuana (THC) Screen Coronavirus (PCR) Influenza Type A (PCR) Influenza Type B (PCR) RSV RNA Qual (PCR) 04/09/21 04/09/21 01:52 07:58 MCV MCH MCHC RDW Plt Count MPV Immature Gran % (Auto) Neut % (Auto) Lymph % (Auto) [place] % (Auto) Eos % (Auto) Baso % (Auto) Lymph # (Auto) [place] # (Auto) Eos # (Auto) Baso # (Auto) Abs Immat Gran (auto) Absolute Neuts (auto) Absolute Nucleated RBC Nucleated RBC % (auto) Anion Gap Estim Creat Clear Calc Estimated GFR POC Glucose 92 Random Glucose Lactic Acid Calcium Total Bilirubin Direct Bilirubin AST ALT Alkaline Phosphatase Troponin I High Sens Total Protein Albumin Lipase Urine Color Urine Appearance Urine pH Ur Specific [place] Urine Protein Urine Glucose (UA) Urine Ketones Urine Blood Urine Nitrite Ur Leukocyte Esterase Urine RBC Urine WBC Ur Squamous Epith Cells Urine Bacteria Urine Opiates Screen Not Detected Urine Fentanyl Screen POSITIVE H Ur Barbiturates Screen Not Detected Ur Phencyclidine Scrn Not Detected Ur Amphetamines Screen Not Detected U Benzodiazepines Scrn Not Detected Urine Cocaine Screen Not Detected U Marijuana (THC) Screen Not Detected Coronavirus (PCR) Influenza Type A (PCR) Influenza Type B (PCR) RSV RNA Qual (PCR) Assessment and Plan (1) Visual hallucinations: Status: Acute (2) Complicated UTI (urinary tract infection): Status: Acute (3) Hypertension, essential: Status: Acute (4) Alcohol abuse: Status: Acute Assessment and Plan: 70M presented with visual hallucinations visual hallucinations patient does not appear to be actively withdrawing, denies dysuria and has not signs of sepsis doubt ETOH withdrawal or UTI as etiology could be due to chronic ETOH use or primary psychiatric disorder psych eval cotninue thiamine, folic acid complicated uti in patient with chronic mcnair rocephin, follow up cultures ETOH dependence with risk for withdrawal ciwa, phenobarb history of CVA with left hemiparesis asa, statin, eliquis baclofen for spams history of DVT on eliquis DM insulin HTN toprol, amlodipine dvt prophylaxis - on eliquis full code Quality Stroke Does the patient have a stroke diagnosis?: No VTE Prior VTE?: Yes VTE Risk Level:: Medical - moderate - high VTE Device Contraindication: Treatment Not Indicated VTE Drug Contraindication: N/A - Med Ordered
[2021-04-09] MEDS: Thiamine HCL 100 MG TABLET PO (09:09)
[2021-04-09] MEDS: Baclofen 10 MG TABLET 30 MG PO ×3 (09:09→20:45)
[2021-04-09] MEDS: FLUoxetine HCl 10 MG CAPSULE 50 MG PO (09:09)
[2021-04-09] MEDS: Ferrous Sulfate 324 MG TABLET.DR PO ×2 (09:10→10:03)
[2021-04-09] MEDS: Apixaban 5 MG TABLET PO (09:10)
[2021-04-09] MEDS: Folic Acid 1 MG TABLET PO (09:11)
[2021-04-09] MEDS: Aspirin 81 MG TAB.CHEW PO (09:11)
[2021-04-09 09:13] VITALS: BP 133/70; PULSE 78
[2021-04-09] MEDS: amLODIPine Besylate 10 MG TABLET PO (09:13)
[2021-04-09] MEDS: Metoprolol Succinate ER 50 MG TAB.ER.24H PO (09:13)
[2021-04-09] MEDS: PHENobarbitaL sodium 130 MG/ML VIAL 263 MG IM (09:14)
[2021-04-09] MEDS: Pregabalin 200 MG CAPSULE PO ×2 (09:20→20:47)
[2021-04-09 10:04] VITALS: BP 118/59; PULSE 76; RESP 19; O2SAT 97
--- NOTE | 2021-04-09 11:30 | PC.NURSE ---
[facility] [phone]- Alina COREA called to go over the patients admission to the hospital, she stated that the patient does not have access to fentanyl at the alf and the other residents there do not take it so she is questioning the lab results but will also look into it on their end.
--- NOTE | 2021-04-09 11:46 | PC.NURSE ---
patient sleeping, wakes to verbal stimulus, calm, staff from sn[facility] at bedside, patients rr 20, attempts for school bus monitor unsuccessful patient pulls leads off, will continue to monitor.
--- NOTE | 2021-04-09 11:53 | PC.NURSE ---
patient sleeping, wakes to verbal stimulus, nuclear monitoring technician intact hr 70s, mcnair cath patient/draining cloudy yellow urine with sediment, pt denies pain or discomfort, call flores within reach, bed alarm intact, fall precautions in place, will continue to monitor
--- NOTE | 2021-04-09 12:09 | P.CDIC_ITS ---
CDI Concurrent Query Documentation Clarification: PHYSICIAN'S DOCUMENTATION REQUEST Date of Query: 04/09/21 1209 Patient Name: Randal Arthur Admit Date: 04/08/21 Dear Doctor, A review of the medical record indicates additional documentation may be indicated. Please review below and update the documentation accordingly. Clinical Indicators: Current documentation includes a diagnosis of UTI. Additional clinical indicators in the record include: Risk Factors/Clinical Indicators/Treatments Complicated UTI in patient with chronic mcnair. UA positive IV Antibiotics. Please provide further specificity regarding the site, etiology, acuity, and known or suspected organism: * Urinary Tract Infection * Other (please specify) * Unable to determine site * Indicate known or suspected organism or undetermined * Indicate if (associated with or due to a device, specify if Mcnair cath, suprapubic cath, etc. Use of terms such as suspected, likely, concern for, or probable (associated with a specific diagnosis that is being evaluated, monitored, or treated as if it exists) are acceptable and can be coded in the inpatient setting, when documented at the time of discharge. Thank you, Jo Moreno [facility], CDIS Extension: [phone] Please use your independent medical judgment in providing your response. THIS QUERY IS PART OF THE PERMANENT MEDICAL RECORD Provider Response: Other Other Diagnosis: complciated uti a/w chronic indwelling mcnair
[2021-04-09 13:06] LABS: Glucose, Whole Blood 88 mg/dL (60-115)
[2021-04-09] MEDS: PHENobarbitaL sodium 130 MG/ML VIAL 197 MG IM ×2 (13:14→16:59)
--- NOTE | 2021-04-09 14:08 | P.CNPS_ITS ---
History of Present Illness Date of Service: 04/09/21 Chief Complaint: UTI, Hallucinations Reason for Consult: rule out primary psychiatric diagnosis as etiology of altered perception HPI Narrative: zee Monroy H&P of 04/09/21: This is a 70-year-old male with past medical history of diabetes, hypertension, 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 Patient is alert and oriented x3, but reports that he has been seeing things.? For the past 2 days.? He reports no auditory hallucinations.? He does report also drinking alcohol daily about 1 nebs a day, his last drink was 2 days ago and that was due to his inability to obtain any alcohol at the care home that he lives in.? Patient denies having any fevers or chills, no chest pain, no shortness of breath, no abdominal pain nausea or vomiting, no diarrhea or constipation, no lower extremity edema.? No headache change in vision or new weakness numbness or tingling. On arrival to the ED patient hemodynamically stable with no significant abnormal vitals Labs are significant for WBC of 10.2, hemoglobin of 10.7, troponin of 37.2, patient denies any chest pain UA that is positive? fo leukocyte Estrace and WBC, UDS positive for fentanyl, COVID-19 negative on interview with psych MD, pt was somnolent but easily rousable. he was oriented to person and time, reasonably, but he initially thought he was at [facility] in [place]. after being reminded of his actual location he was able to recall it at the end of the interview. likewise he was initially unable to say what he was being treated for in the ED but once being reminded was able to recall at the end of the interview. he denied any current altered perceptions but stated that over the previous couple of days he has felt like his bed was floating in the air or that he was in his wheelchair moving around when he was actually in his bed. he suggested he may have taken his pills wrong, causing the confusion. he minimized his alcohol intake and denied using any other drugs. his general condition appeared to be recovery from delirium, the etiology of which could be the UTI, occult drug use, alcohol withdrawal, or misuse of prescribed medications. he denied any primary psychiatric diagnosis, h/o psych hosp, mental health treatment. he did endorse a h/o alcohol use disorder and several detoxes about 40 years ago. Past Psychiatric History: no h/o psychiatric hospitalizations. no h/o suicide attempt. denies outpatient care currently. unaware he is on any psychiatric medication and unable to provide any psychiatric diagnosis. Medical Evaluation Reviewed: Yes Personal & Social History: living at a facility with 24H nursing care. [facility] Medical History COPD (chronic obstructive pulmonary disease) CVA (cerebral vascular accident) Diabetes type 2, controlled DVT (deep venous thrombosis) Essential hypertension Ileus Incontinence of feces Incontinence of urine Pressure ulcer, buttock Spastic paralysis Surgical History History of cholecystectomy Family History: denies Substance History: tobacco - 3 to 6 cigarettes daily alcohol - reports drinking 1 nip daily. states he has had about 3 detoxes about 40 years ago. Diagnostics Vital Signs (24Hr): Vital Signs - 24 hr 04/08/21 17:02 04/09/21 09:13 04/09/21 10:04 Temperature 98.1 F Pulse Rate 76 78 76 Respiratory Rate 16 19 Blood Pressure 147/78 H 133/70 118/59 L Pulse Oximetry 96 97 Body Mass Index 33.3 Labs Results: 04/08/21 20:19 04/08/21 20:17 Labs: Laboratory Results - last 48 hr 04/08/21 04/08/21 04/08/21 20:02 20:02 20:17 WBC RBC Hgb Hct MCV MCH MCHC RDW Plt Count MPV Immature Gran % (Auto) Neut % (Auto) Lymph % (Auto) [place] % (Auto) Eos % (Auto) Baso % (Auto) Lymph # (Auto) [place] # (Auto) Eos # (Auto) Baso # (Auto) Abs Immat Gran (auto) Absolute Neuts (auto) Absolute Nucleated RBC Nucleated RBC % (auto) Sodium 139 Potassium 4.0 Chloride 106 Carbon Dioxide 27 Anion Gap 10 L BUN 8 L Creatinine 0.62 Estim Creat Clear Calc 155.6 Estimated GFR > 60 POC Glucose Random Glucose 94 Lactic Acid Calcium 8.8 Total Bilirubin 0.3 Direct Bilirubin 0.2 AST 10 ALT 14 Alkaline Phosphatase 67 Troponin I High Sens Total Protein 6.2 L Albumin 3.3 L Lipase 21 Urine Color YELLOW Urine Appearance CLEAR Urine pH 6.5 Ur Specific [place] 1.020 Urine Protein TRACE Urine Glucose (UA) NEG Urine Ketones NEG Urine Blood TRACE Urine Nitrite NEG Ur Leukocyte Esterase 3+ H Urine RBC 1-4 Urine WBC 15-29 H Ur Squamous Epith Cells TRACE Urine Bacteria 3+ Urine Opiates Screen Urine Fentanyl Screen Ur Barbiturates Screen Ur Phencyclidine Scrn Ur Amphetamines Screen U Benzodiazepines Scrn Urine Cocaine Screen U Marijuana (THC) Screen Coronavirus (PCR) NEGATIVE Influenza Type A (PCR) NEGATIVE Influenza Type B (PCR) NEGATIVE RSV RNA Qual (PCR) NEGATIVE 04/08/21 04/08/21 04/08/21 20:17 20:19 20:19 WBC 10.2 RBC 4.26 L Hgb 10.7 L D Hct 33.7 L D MCV 79.1 L MCH 25.1 L MCHC 31.8 RDW 18.7 H Plt Count 464 H D MPV 9.5 Immature Gran % (Auto) 0.3 Neut % (Auto) 63.6 Lymph % (Auto) 25.4 [place] % (Auto) 8.7 Eos % (Auto) 1.7 Baso % (Auto) 0.3 Lymph # (Auto) 2.6 Daniels # (Auto) 0.9 Eos # (Auto) 0.2 Baso # (Auto) 0.0 Abs Immat Gran (auto) 0.03 Absolute Neuts (auto) 6.5 Absolute Nucleated RBC 0.000 Nucleated RBC % (auto) 0.0 Sodium Potassium Chloride Carbon Dioxide Anion Gap BUN Creatinine Estim Creat Clear Calc Estimated GFR POC Glucose Random Glucose Lactic Acid 1.1 Calcium Total Bilirubin Direct Bilirubin AST ALT Alkaline Phosphatase Troponin I High Sens 37.2 H* Total Protein Albumin Lipase Urine Color Urine Appearance Urine pH Ur Specific [place] Urine Protein Urine Glucose (UA) Urine Ketones Urine Blood Urine Nitrite Ur Leukocyte Esterase Urine RBC Urine WBC Ur Squamous Epith Cells Urine Bacteria Urine Opiates Screen Urine Fentanyl Screen Ur Barbiturates Screen Ur Phencyclidine Scrn Ur Amphetamines Screen U Benzodiazepines Scrn Urine Cocaine Screen U Marijuana (THC) Screen Coronavirus (PCR) Influenza Type A (PCR) Influenza Type B (PCR) RSV RNA Qual (PCR) 04/09/21 04/09/21 04/09/21 01:52 07:58 13:01 WBC RBC Hgb Hct MCV MCH MCHC RDW Plt Count MPV Immature Gran % (Auto) Neut % (Auto) Lymph % (Auto) [place] % (Auto) Eos % (Auto) Baso % (Auto) Lymph # (Auto) Daniels # (Auto) Eos # (Auto) Baso # (Auto) Abs Immat Gran (auto) Absolute Neuts (auto) Absolute Nucleated RBC Nucleated RBC % (auto) Sodium Potassium Chloride Carbon Dioxide Anion Gap BUN Creatinine Estim Creat Clear Calc Estimated GFR POC Glucose 92 88 Random Glucose Lactic Acid Calcium Total Bilirubin Direct Bilirubin AST ALT Alkaline Phosphatase Troponin I High Sens Total Protein Albumin Lipase Urine Color Urine Appearance Urine pH Ur Specific [place] Urine Protein Urine Glucose (UA) Urine Ketones Urine Blood Urine Nitrite Ur Leukocyte Esterase Urine RBC Urine WBC Ur Squamous Epith Cells Urine Bacteria Urine Opiates Screen Not Detected Urine Fentanyl Screen POSITIVE H Ur Barbiturates Screen Not Detected Ur Phencyclidine Scrn Not Detected Ur Amphetamines Screen Not Detected U Benzodiazepines Scrn Not Detected Urine Cocaine Screen Not Detected U Marijuana (THC) Screen Not Detected Coronavirus (PCR) Influenza Type A (PCR) Influenza Type B (PCR) RSV RNA Qual (PCR) Imaging Radiology Impressions: ITS Impressions Chest X-Ray 04/08/21 17:16 IMPRESSION: Cardiomegaly with ectatic thoracic arch. The lungs are clear. Mental Status Exam Mental Status Exam Narrative: somnolent, unkempt, flecks of food in his jarrett, supine on ED bed. cooperative, easily rousable. no PMA/PMR. speech mildly slurred, soft, flattened, incr latency. thoughts linear and logical without evidence of paranoia or delusions. affect blunted, hypo-intense, non-labile. mood kind of messed up. they came in here and messed up my whole day. denies SI/HI/AVH. Medications Medications Current Medications Amlodipine Besylate (Amlodipine Besylate 10 Mg Tablet) 10 mg PO DAILY [facility]; Protocol Last Admin: 04/09/21 09:13 Dose: 10 mg Documented by: Apixaban (Apixaban 5 Mg Tablet) 5 mg PO BID [facility] Last Admin: 04/09/21 09:10 Dose: 5 mg Documented by: Aspirin (Aspirin 81 Mg Tab.Chew) 81 mg PO DAILY [facility] Last Admin: 04/09/21 09:11 Dose: 81 mg Documented by: Atorvastatin Calcium (Atorvastatin Calcium 20 Mg Tablet) 20 mg PO BEDTIME [facility] Baclofen (Baclofen 10 Mg Tablet) 30 mg PO TID [facility] Last Admin: 04/09/21 09:09 Dose: 30 mg Documented by: Dextrose (Dextrose 50 % 25 Gm/50 Ml Vial) 25 gm IVPUSH Q15M PRN; Protocol PRN Reason: per Hypoglycemia Standing Ord. Ferrous Sulfate (Ferrous Sulfate 324 Mg Tablet.) 324 mg PO DAILY [facility] Last Admin: 04/09/21 10:03 Dose: 324 mg Documented by: Fluoxetine HCl (Fluoxetine Hcl 10 Mg Capsule) 50 mg PO DAILY [facility] Last Admin: 04/09/21 09:09 Dose: 50 mg Documented by: Folic Acid (Folic Acid 1 Mg Tablet) 1 mg PO DAILY [facility] Last Admin: 04/09/21 09:11 Dose: 1 mg Documented by: Glucose (Glucose Gel 15 Gm Gel..Gram.) 15 gm PO Q15M PRN; Protocol PRN Reason: per Hypoglycemia Standing Ord. Insulin Human Lispro (Insulin Lispro 100 Unit/Ml 3 Ml Vial) 0 unit SUBCUT QIDACHS [facility]; Protocol Last Admin: 04/09/21 13:10 Dose: Not Given Documented by: Magnesium Hydroxide (Milk Of Magnesia 30 Ml Oral.Susp) 30 ml PO BEDTIME PRN PRN Reason: constipation Medication (No Benzodiazepines) 1 each MISCELLANE DAILY [facility] Metoprolol Succinate (Metoprolol Succinate Er 50 Mg Tab.Er.24h) 50 mg PO DAILY [facility]; Protocol Last Admin: 04/09/21 09:13 Dose: 50 mg Documented by: Non-Formulary Medication (Diclofenac Sodium [Arthritis Pain (Diclofenac)]) 4 gm TOPICAL BID [facility] Phenobarbital (Phenobarbital 30 Mg Tablet) 60 mg PO BID [facility]; Protocol Stop: 04/11/21 09:01 Phenobarbital (Phenobarbital 30 Mg Tablet) 30 mg PO BID [facility]; Protocol Stop: 04/13/21 09:01 Phenobarbital (Phenobarbital 30 Mg Tablet) 30 mg PO DAILY [facility]; Protocol Stop: 04/15/21 09:01 Phenobarbital Sodium (Phenobarbital Sodium 130 Mg/Ml Vial) 197 mg IM Q3H [facility]; Protocol Stop: 04/09/21 15:01 Last Admin: 04/09/21 13:14 Dose: 197 mg Documented by: Pregabalin (Pregabalin 200 Mg Capsule) 200 mg PO BID [facility] Last Admin: 04/09/21 09:20 Dose: 200 mg Documented by: Tamsulosin HCl (Tamsulosin Hcl 0.4 Mg Capsule) 0.4 mg PO BEDTIME [facility] Thiamine HCl (Thiamine Hcl 100 Mg Tablet) 100 mg PO DAILY [facility] Last Admin: 04/09/21 09:09 Dose: 100 mg Documented by: Zinc Oxide (Zinc Oxide 20% Ointment 28.35 Gm Tube) 1 appl TOPICAL 8XD PRN PRN Reason: INCONTIENCE Allergies Allergies Allergy/AdvReac Type Severity Reaction Status Date / Time No Known Allergies Allergy Verified 03/21/21 16:22 Assessment & Plan Assessment & Plan (1) Delirium: Status: Acute Code(s): R41.0 - Disorientation, unspecified Assessment and Plan: due to UTI versus occult substance use versus accidental misuse of medications versus alcohol withdrawal. per collateral from internal medicine service, the severity of the infection is not consistent with the pattern of disorientation and altered perception this patient has described, lowering the likelihood this delirium is secondary to the infection. in any case, the infection is currently being treated with IV antibiotics. regarding substance use, he has a fentanyl POS urine but no described opioids history and no other positives on utox. the relative frequency of false positives for fentanyl testing, the large number of medications he is taking which might result in a false positive, and the low-fernanda pre-test probability make occult opioid use less likely. a confirmation/quant ification should be sent on the fentanyl to rule it out. alsocohol withdrawal is possible, but he does not have any other physiologic signs; that said, he is on multiple medications which would blunt the physiologic arousal one would expect. this possibility is being covered by phenobarb protocol. finally, the misuse of prescription medications may be a cause, especially if the facility where he lives does not control and administer the residents' medications. if the facility does control patients' medications, occult drug use rises as the most likely cause. Assessment and Plan: potential cause of delirium and rule out or elimination of cause: 1) UTI - IV antibiotics. 2) drug use - send conf/quant on fentanyl, make sure you have tested for oxycodone, methadone, buprenorphine as well as opiates. 3) alcohol use disorder - observe for withdrawal signs. continue phenobarb protocol. 4) misuse of medications - collateral information from facility where he resides re if staff hold residents' medications or not. will sign off for now; let us know if re-evaluation is needed. thank you for the consult. Greater than 50% of the session was spent on counseling and/or coordination of care
[2021-04-09 14:46] LABS: Amphetamine Screen Urine Not Detected (Not Detect); Barbiturates, Urine POSITIVE (Not Detect); Benzodiazepines Screen Urine Not Detected (Not Detect); Cannabinoid Screen Urine Not Detected (Not Detect); Cocaine Screen Urine Not Detected (Not Detect); Fentanyl, urine Not Detected (Not Detect); Opiate Screen Urine Not Detected (Not Detect); Phencyclidine Screen Urine Not Detected (Not Detect)
--- NOTE | 2021-04-09 15:05 | PC.NURSE ---
called floor to give report, will call us back momentarily
[2021-04-09 15:09] VITALS: BP 104/56; PULSE 81; RESP 17; TEMP 36.8; O2SAT 96
--- NOTE | 2021-04-09 15:54 | PC.NURSE ---
report given to floor, pt ready to be transported
[2021-04-09 16:39] VITALS: BP 110/70; PULSE 69; RESP 16; TEMP 36.1; O2SAT 98
[2021-04-09 16:44] LABS: Glucose, Whole Blood 91 mg/dL (60-115)
[2021-04-09] MEDS: Pantoprazole Sodium 40 MG/10 ML VIAL IVPUSH (17:01)
[2021-04-09 17:24] VITALS: BMI 33.3
[2021-04-09 17:25] LABS: Hematocrit 30.8 % (42-52); Hemoglobin 9.9 g/dl (14.0-18.0)
[2021-04-09 17:35] LABS: OBS Int Ctl Valid YES; OBS1 POSITIVE (NEGATIVE)
[2021-04-09 19:47] VITALS: BP 138/70; PULSE 73; RESP 18; TEMP 36.1; O2SAT 95
[2021-04-09] MEDS: Tamsulosin HCL 0.4 MG CAPSULE PO (20:46)
[2021-04-09] MEDS: PHENobarbitaL 30 MG TABLET 60 MG PO (20:46)
[2021-04-09] MEDS: Atorvastatin Calcium 20 MG TABLET PO (20:47)
[2021-04-09 20:53] LABS: Glucose, Whole Blood 88 mg/dL (60-115)
[2021-04-09 23:37] VITALS: BP 116/55; PULSE 76; RESP 16; TEMP 36.3; O2SAT 91
[2021-04-10] VITALS (8 sets, daily range): BP systolic 118–174; BP diastolic 61–77; PULSE 63–75; RESP 18–20; TEMP 36.1–36.9; O2SAT 91–96
[2021-04-10] MEDS: Pantoprazole Sodium 40 MG/10 ML VIAL IVPUSH (05:25)
[2021-04-10 07:14] LABS: Hematocrit 31.4 % (42-52); Mean Corpuscular HGB Conc 31.8 g/dl (31.0-36.0); Mean Corpuscular Hemoglobin 24.8 pg (27.0-33.0); Mean Corpuscular Volume 77.9 fL (80-98); Mean Platelet Volume 10.2 fL (9.4-12.4); Platelet Count 481 X10*3/uL (160-400); Red Blood Count 4.03 X10*6/uL (4.60-5.80); White Blood Count 9.4 X10*3/uL (4.8-10.8)
[2021-04-10 07:28] LABS: Glucose, Whole Blood 83 mg/dL (60-115)
[2021-04-10 07:42] LABS: Anion Gap 11 (12-20); Blood Urea Nitrogen 6 mg/dL (9-16); Carbon Dioxide 24 mmol/L (22-29); Chloride 104 mmol/L (96-108); Creatinine Clr Calc Pharmacy 169.2; Estimated Glomerular Filt Rate > 60; Glucose Fasting 78 mg/dL (60-99); Potassium 3.8 mmol/L (3.3-5.1); Sodium 135 mmol/L (135-145)
[2021-04-10 07:54] LABS: Calcium 7.9 mg/dL (8.4-10.2)
--- NOTE | 2021-04-10 08:23 | P.CNGI_ITS ---
History of Present Illness Data of Consult Service Date: 04/10/21 Requesting physician: Des Portillo Primary Care Provider: Unknown Physician HPI Reason for consult: anemia 70-year-old male with history of diabetes, hypertension, CVA with left sided hemiparesis, COPD, chronic Graff, who I am seeing for assessment for anemia. Patient initially admitted for visual hallucinations with concern for UTI, drug induced or alcohol related factors. Patient lives in nursing home but apparently drinks alcohol daily. Patient is sleepy possibly from alcohol withdrawal protocol and phenobarb but de nies abdominal pain, rectal bleeding, or melena. Per nurse no known active bleeding whilst on floor. HGB has been stable since admission at around 10 g/dl. Unknown if he has ever had EGD or colonoscopy in the past. Review of Systems Review of Systems: General no headache, no dizziness, no fever chills. CVS no chest pain, no palpitation. Respiratory no cough, no sob. Gastrointestinal no nausea ,no vomiting, no abdominal pain Yes all other systems are reviewed and are negative Cardiovascular: Cardiovascular: Reports no additional cardiovascular complaints Respiratory: Respiratory: Reports no additional respiratory complaints PMFSH Past Medical History Medical History COPD (chronic obstructive pulmonary disease) CVA (cerebral vascular accident) Diabetes type 2, controlled DVT (deep venous thrombosis) Essential hypertension Ileus Incontinence of feces Incontinence of urine Pressure ulcer, buttock Spastic paralysis Family History Family History Mother No problems noted. Father No problems noted. Pertinent family history: No pertinent history Surgical History Surgical History History of cholecystectomy Social History Social History Household Members: Other Housing: Other Housing Other:: intermediate. Do you presently have visiting nurse or other home services: No Alcohol intake: current Alcohol intake frequency: 0-2 drinks per day Alcohol type: hard liquor Patient Tobacco Use Status: Current everyday Tobacco user Tobacco use type: Cigarette Cigarettes Per Day: 6 Smoked in Last 30 Days: Yes e-Cigarette/Vaping Use: Never Used Patient Interested in Nicotine Replacement: No Patient Given Instructions on How to Stop Smoking: No Second Hand Smoke Exposure: No Use of substances other than those prescribed or required for medical reasons: No Currently Displaying Signs/Symptoms of Drug Intoxication Withdrawal: No Have you been hit, kicked, punched, or otherwise hurt by someone within the past year? If so, by whom?: No Do you feel safe in your current relationship?: No Current Relationship Is there a partner from a previous relationship who is making you feel unsafe now?: No Are you made to feel afraid or neglected: No Spiritual Healthcare Practices: no Christian Healthcare Practices: no Cultural Healthcare Practices: no Advance Directives: No Advance Directives Information Provided: No Do you have thoughts of harming others: None Do you have a plan to hurt others: No Plan Recently lost weight without trying: No Eating poorly because of decreased appetite: No Nutrition Risks: No Nutritional Risk Poor oral hygiene: No service: No Meds Allergies Allergy/AdvReac Type Severity Reaction Status Date / Time No Known Allergies Allergy Verified 03/21/21 16:22 Active Medications: Current Medications Amlodipine Besylate (Amlodipine Besylate 10 Mg Tablet) 10 mg PO DAILY [facility]; Protocol Last Admin: 04/09/21 09:13 Dose: 10 mg Documented by: Atorvastatin Calcium (Atorvastatin Calcium 20 Mg Tablet) 20 mg PO BEDTIME [facility] Last Admin: 04/09/21 20:47 Dose: 20 mg Documented by: Baclofen (Baclofen 10 Mg Tablet) 30 mg PO TID [facility] Last Admin: 04/09/21 20:45 Dose: 30 mg Documented by: Dextrose (Dextrose 50 % 25 Gm/50 Ml Vial) 25 gm IVPUSH Q15M PRN; Protocol PRN Reason: per Hypoglycemia Standing Ord. Ferrous Sulfate (Ferrous Sulfate 324 Mg ) 324 mg PO DAILY [facility] Last Admin: 04/09/21 10:03 Dose: 324 mg Documented by: Fluoxetine HCl (Fluoxetine Hcl 10 Mg Capsule) 50 mg PO DAILY [facility] Last Admin: 04/09/21 09:09 Dose: 50 mg Documented by: Folic Acid (Folic Acid 1 Mg Tablet) 1 mg PO DAILY [facility] Last Admin: 04/09/21 09:11 Dose: 1 mg Documented by: Glucose (Glucose Gel 15 Gm Gel..Gram.) 15 gm PO Q15M PRN; Protocol PRN Reason: per Hypoglycemia Standing Ord. Insulin Human Lispro (Insulin Lispro 100 Unit/Ml 3 Ml Vial) 0 unit SUBCUT QIDACHS [facility]; Protocol Last Admin: 04/09/21 20:47 Dose: Not Given Documented by: Magnesium Hydroxide (Milk Of Magnesia 30 Ml Oral.Susp) 30 ml PO BEDTIME PRN PRN Reason: constipation Medication (No Benzodiazepines) 1 each MISCELLANE DAILY [facility] Metoprolol Succinate (Metoprolol Succinate Er 50 Mg Tab.Er.24h) 50 mg PO DAILY [facility]; Protocol Last Admin: 04/09/21 09:13 Dose: 50 mg Documented by: Non-Formulary Medication (Diclofenac Sodium [Arthritis Pain (Diclofenac)]) 4 gm TOPICAL BID [facility] Pantoprazole Sodium (Pantoprazole Sodium 40 Mg/10 Ml Vial) 40 mg IVPUSH BID@0630,1630 [facility] Last Admin: 04/10/21 05:25 Dose: 40 mg Documented by: Phenobarbital (Phenobarbital 30 Mg Tablet) 60 mg PO BID [facility]; Protocol Stop: 04/11/21 09:01 Last Admin: 04/09/21 20:46 Dose: 60 mg Documented by: Phenobarbital (Phenobarbital 30 Mg Tablet) 30 mg PO BID [facility]; Protocol Stop: 04/13/21 09:01 Phenobarbital (Phenobarbital 30 Mg Tablet) 30 mg PO DAILY [facility]; Protocol Stop: 04/15/21 09:01 Pregabalin (Pregabalin 200 Mg Capsule) 200 mg PO BID [facility] Last Admin: 04/09/21 20:47 Dose: 200 mg Documented by: Tamsulosin HCl (Tamsulosin Hcl 0.4 Mg Capsule) 0.4 mg PO BEDTIME [facility] Last Admin: 04/09/21 20:46 Dose: 0.4 mg Documented by: Thiamine HCl (Thiamine Hcl 100 Mg Tablet) 100 mg PO DAILY [facility] Last Admin: 04/09/21 09:09 Dose: 100 mg Documented by: Zinc Oxide (Zinc Oxide 20% Ointment 28.35 Gm Tube) 1 appl TOPICAL 8XD PRN PRN Reason: INCONTIENCE Home Medications Medication Instructions Recorded Confirmed Last Taken Type fluoxetine 10 mg capsule 10 mg PO DAILY 07/11/20 04/09/21 Unknown History aspirin 81 mg chewable tablet 81 mg PO DAILY 04/09/21 04/09/21 Unknown History docusate sodium 100 mg capsule 100 mg PO BID 04/09/21 04/09/21 Unknown History (Colace) fluoxetine 40 mg capsule 40 mg PO DAILY 04/09/21 04/09/21 Unknown History zinc oxide 40 % topical ointment 1 appl TOPICAL 8XD PRN 04/09/21 04/09/21 Unknown History Physical Exam Vital Signs: Vital Signs: Last Vital Signs Temp 97.9 F 04/10/21 07:44 Pulse 63 04/10/21 07:44 Resp 18 04/10/21 07:44 BP 174/77 H 04/10/21 07:44 Pulse Ox 96 04/10/21 07:44 Body Mass Index 33.3 General somnolent but arousable,no acute distress.? Necki supple no JVD. CVS? regular rate rhythm, Respiratory lungs clear to auscultation, no respiratory distress, no wheeze, no rhonchi. Gastrointestinal abdomen soft, nontender, bowel sounds audible,no guarding Extremities no edema. Neuro: somnolent, left hemiparesis (spastic) Psych denies visual hallucination Skin no rash Results Labs CBC & Chem 7: 04/10/21 06:31 04/10/21 06:31 Labs: Short CBC 04/09/21 04/10/21 Range/Units 17:07 06:31 WBC 9.4 (4.8-10.8) X10*3/uL Hgb 9.9 L 10.0 L (14.0-18.0) g/dl Hct 30.8 L 31.4 L (42-52) % Plt Count 481 H (160-400) X10*3/uL BMP 04/10/21 06:31 Sodium 135 Potassium 3.8 Chloride 104 Carbon Dioxide 24 BUN 6 L Creatinine 0.57 Calcium 7.9 L D Microbiology Microbiology Results: Microbiology 04/08/21 20:19 Blood - Venous Blood Culture - Preliminary No growth after 24 hours. 04/08/21 20:19 Blood - Venous Blood Culture - Preliminary No growth after 24 hours. 04/08/21 Unknown Urine clean catch - Urine walker top Urine Culture - Preliminary Culture too young to evaluate. Assessment and Plan (1) Anemia: Status: Acute 1/ Anemia, uncertain duration as HGB was 14 g/dl yr ago. he is on eliquis for ant coagulation as well as aspirin but no overt bleeding so far whilst here. HGB has been stable in house. PLAN: 1/ He will need EGD and colonoscopy for further evaluation but this can be done either as in patient or early o/p once his acute delirium and neurological issues resolve. THis can be reviewed if there is clinical deterioration from a GI stand point with overt bleeding or declining hgb 2/ Check b12, ferritin, iron sats, folate, retics, LDH, smear, haptoglobin 3/ would keep on pantoprazole 40 mg daily for gastro protection Procedures Date of Service Date of Service: 04/10/21
[2021-04-10] MEDS: Baclofen 10 MG TABLET 30 MG PO ×3 (09:21→21:20)
[2021-04-10] MEDS: Ferrous Sulfate 324 MG TABLET.DR PO (09:22)
[2021-04-10] MEDS: amLODIPine Besylate 10 MG TABLET PO (09:22)
[2021-04-10] MEDS: Thiamine HCL 100 MG TABLET PO (09:22)
[2021-04-10] MEDS: Folic Acid 1 MG TABLET PO (09:23)
[2021-04-10] MEDS: PHENobarbitaL 30 MG TABLET 60 MG PO ×2 (09:23→21:20)
[2021-04-10] MEDS: Metoprolol Succinate ER 50 MG TAB.ER.24H PO (09:24)
[2021-04-10] MEDS: FLUoxetine HCl 10 MG CAPSULE 50 MG PO (09:24)
[2021-04-10] MEDS: Pregabalin 200 MG CAPSULE PO ×2 (09:24→21:19)
[2021-04-10 10:58] LABS: Glucose, Whole Blood 85 mg/dL (60-115)
--- NOTE | 2021-04-10 11:28 | MHC.CM.PN ---
spoke with group galan at [facility] where pt lives she explinsmthat pt is provided with 24/7 care including an rn and staff they do his medications take him to appts he will need an amb when dcd his hcp is his brother marguerite vega [phone] contact snf prior to dc to let them know what time he is to arrive
--- NOTE | 2021-04-10 12:48 | HO.PM.IMPN ---
Subjective Subjective Date of Service: 04/10/21 Interval History: Being followed for hallucination and alcohol withdrawal, patient is somnolent but easily arousable this morning, denies abdominal pain, not noted to have bright red blood per rectum. Denies hallucination, denies dysuria. Review of Systems General no headache, no dizziness, no fever chills. CVS no chest pain, no palpitation. Respiratory no cough, no sob. Gastrointestinal no nausea ,no vomiting, no abdominal pain Physical Exam Vital Signs: Vital Signs: Last Vital Signs Temp 98.0 F 04/10/21 11:11 Pulse 65 04/10/21 11:11 Resp 20 04/10/21 11:11 BP 156/74 H 04/10/21 11:11 Pulse Ox 96 04/10/21 11:11 Body Mass Index 33.3 General somnolent but arousable,no acute distress. Necki supple no JVD. CVS regular rate rhythm, Respiratory lungs clear to auscultation, no respiratory distress, no wheeze, no rhonchi. Gastrointestinal abdomen soft, nontender, bowel sounds audible,no guarding Extremities no edema. Neuro speech clear, left hemiparesis (spastic) Psych denies visual hallucination Skin no rash Objective Data Active Medications Amlodipine Besylate (Amlodipine Besylate 10 Mg Tablet) 10 mg PO DAILY [facility]; Protocol Last Admin: 04/10/21 09:22 Dose: 10 mg Documented by: SACHI Atorvastatin Calcium (Atorvastatin Calcium 20 Mg Tablet) 20 mg PO BEDTIME [facility] Last Admin: 04/09/21 20:47 Dose: 20 mg Documented by: GORGE Baclofen (Baclofen 10 Mg Tablet) 30 mg PO TID [facility] Last Admin: 04/10/21 09:21 Dose: 30 mg Documented by: SACHI Dextrose (Dextrose 50 % 25 Gm/50 Ml Vial) 25 gm IVPUSH Q15M PRN; Protocol PRN Reason: per Hypoglycemia Standing Ord. Ferrous Sulfate (Ferrous Sulfate 324 Mg Tablet.) 324 mg PO DAILY [facility] Last Admin: 04/10/21 09:22 Dose: 324 mg Documented by: SACHI Fluoxetine HCl (Fluoxetine Hcl 10 Mg Capsule) 50 mg PO DAILY [facility] Last Admin: 04/10/21 09:24 Dose: 50 mg Documented by: SACHI Folic Acid (Folic Acid 1 Mg Tablet) 1 mg PO DAILY [facility] Last Admin: 04/10/21 09:23 Dose: 1 mg Documented by: SACHI Glucose (Glucose Gel 15 Gm Gel..Gram.) 15 gm PO Q15M PRN; Protocol PRN Reason: per Hypoglycemia Standing Ord. Insulin Human Lispro (Insulin Lispro 100 Unit/Ml 3 Ml Vial) 0 unit SUBCUT QIDACHS [facility]; Protocol Last Admin: 04/10/21 12:03 Dose: Not Given Documented by: JOE Non-Admin Reason: No Insulin Coverage Magnesium Hydroxide (Milk Of Magnesia 30 Ml Oral.Susp) 30 ml PO BEDTIME PRN PRN Reason: constipation Medication (No Benzodiazepines) 1 each MISCELLANE DAILY [facility] Metoprolol Succinate (Metoprolol Succinate Er 50 Mg Tab.Er.24h) 50 mg PO DAILY [facility]; Protocol Last Admin: 04/10/21 09:24 Dose: 50 mg Documented by: SACHI Non-Formulary Medication (Diclofenac Sodium [Arthritis Pain (Diclofenac)]) 4 gm TOPICAL BID [facility] Pantoprazole Sodium (Pantoprazole Sodium 40 Mg/10 Ml Vial) 40 mg IVPUSH BID@0630,1630 [facility] Last Admin: 04/10/21 05:25 Dose: 40 mg Documented by: PRIMITIVO Phenobarbital (Phenobarbital 30 Mg Tablet) 60 mg PO BID [facility]; Protocol Stop: 04/11/21 09:01 Last Admin: 04/10/21 09:23 Dose: 60 mg Documented by: SACHI Phenobarbital (Phenobarbital 30 Mg Tablet) 30 mg PO BID [facility]; Protocol Stop: 04/13/21 09:01 Phenobarbital (Phenobarbital 30 Mg Tablet) 30 mg PO DAILY [facility]; Protocol Stop: 04/15/21 09:01 Pregabalin (Pregabalin 200 Mg Capsule) 200 mg PO BID [facility] Last Admin: 04/10/21 09:24 Dose: 200 mg Documented by: SACHI Tamsulosin HCl (Tamsulosin Hcl 0.4 Mg Capsule) 0.4 mg PO BEDTIME [facility] Last Admin: 04/09/21 20:46 Dose: 0.4 mg Documented by: GORGE Thiamine HCl (Thiamine Hcl 100 Mg Tablet) 100 mg PO DAILY [facility] Last Admin: 04/10/21 09:22 Dose: 100 mg Documented by: SACHI Zinc Oxide (Zinc Oxide 20% Ointment 28.35 Gm Tube) 1 appl TOPICAL 8XD PRN PRN Reason: INCONTIENCE Labs CBC & Chem 7: 04/10/21 06:31 04/10/21 06:31 Labs: Laboratory Results - last 24 hr 04/09/21 04/09/21 04/09/21 13:01 14:25 16:37 MCV MCH MCHC RDW Plt Count MPV Absolute Nucleated RBC Nucleated RBC % (auto) Anion Gap Estim Creat Clear Calc Estimated GFR POC Glucose 88 91 Fasting Glucose Calcium Stool Occult Blood Urine Opiates Screen Not Detected Urine Fentanyl Screen Not Detected Ur Barbiturates Screen POSITIVE H Ur Phencyclidine Scrn Not Detected Ur Amphetamines Screen Not Detected U Benzodiazepines Scrn Not Detected Urine Cocaine Screen Not Detected U Marijuana (THC) Screen Not Detected 04/09/21 04/09/21 04/10/21 16:56 20:27 06:31 MCV 77.9 L MCH 24.8 L MCHC 31.8 RDW 18.0 H Plt Count 481 H MPV 10.2 Absolute Nucleated RBC 0.000 Nucleated RBC % (auto) 0.0 Anion Gap Estim Creat Clear Calc Estimated GFR POC Glucose 88 Fasting Glucose Calcium Stool Occult Blood POSITIVE Urine Opiates Screen Urine Fentanyl Screen Ur Barbiturates Screen Ur Phencyclidine Scrn Ur Amphetamines Screen U Benzodiazepines Scrn Urine Cocaine Screen U Marijuana (THC) Screen 04/10/21 04/10/21 04/10/21 06:31 07:22 10:50 MCV MCH MCHC RDW Plt Count MPV Absolute Nucleated RBC Nucleated RBC % (auto) Anion Gap 11 L Estim Creat Clear Calc 169.2 Estimated GFR > 60 POC Glucose 83 85 Fasting Glucose 78 Calcium 7.9 L D Stool Occult Blood Urine Opiates Screen Urine Fentanyl Screen Ur Barbiturates Screen Ur Phencyclidine Scrn Ur Amphetamines Screen U Benzodiazepines Scrn Urine Cocaine Screen U Marijuana (THC) Screen Microbiology Microbiology Results: Microbiology 04/08/21 Unknown Urine Culture - Final Urine clean catch - Urine walker top 04/08/21 20:19 Blood Culture - Preliminary Blood - Venous No growth after 24 hours. 04/08/21 20:19 Blood Culture - Preliminary Blood - Venous No growth after 24 hours. Assessment and Plan (1) Alcohol abuse: Status: Acute (2) Visual hallucinations: Status: Acute (3) Complicated UTI (urinary tract infection): Status: Acute (4) Hypertension, essential: Status: Acute (5) Left-sided weakness: Status: Acute Assessment and Plan: 70M presented with visual hallucinations visual hallucinations/acute delirium No further episodes of visual hallucination this morning Patient seen by psych and they feel patient has delirium with multiple possibilities UTI ruled out In regard to alcohol withdrawal will continue phenobarb protocol Urine toxicology positive for fentanyl question falsely positive will check GCMS No primary psychiatric diagnosis Will verify from nursing home if patient takes his own medications or being provided by facility to confirm misuse of medications Most likely delirium is due to occult drug use Follow clinical course complicated uti in patient with chronic mcnair, there was concern for UTI however urine culture grew mixed bacterial juan luis character stick of urogenital contamination likely due to chronic Mcnair, blood cultures negative Will DC IV Rocephin Concern for lower GI bleed, no evidence of GI bleed noted has guaiac-positive stool, hematocrit stable, case discussed with Gastroenterology no need for invasive procedures will DC IV Protonix and changed to po Prilosec Chronic Mcnair catheter due to urinary incontinence, will recommend change of catheter every 30 days ETOH dependence with risk for withdrawal Continue phenobarb, continue thiamine and folic acid history of CVA with left hemiparesis Continue asa, statin, eliquis baclofen for spasms history of DVT on eliquis DM Blood sugars stable continue insulin HTN BP stable in last 24 hours this morning noted to have high blood pressure, continue toprol, and amlodipine and follow BP closely question related to alcohol withdrawal dvt prophylaxis - on eliquis full code Quality Stroke Does the patient have a stroke diagnosis?: No VTE Prior VTE?: Yes VTE Risk Level:: Medical - moderate - high VTE Device Contraindication: Treatment Not Indicated VTE Drug Contraindication: N/A - Med Ordered
[2021-04-10 16:19] LABS: Glucose, Whole Blood 101 mg/dL (60-115)
[2021-04-10] MEDS: ondansetron HCL 4 MG/2 ML VIAL IVPUSH (18:54)
[2021-04-10 19:59] LABS: Glucose, Whole Blood 84 mg/dL (60-115)
[2021-04-10] MEDS: Tamsulosin HCL 0.4 MG CAPSULE PO (21:19)
[2021-04-10] MEDS: Atorvastatin Calcium 20 MG TABLET PO (21:20)
[2021-04-11] VITALS (9 sets, daily range): BP systolic 111–130; BP diastolic 59–88; PULSE 56–89; RESP 16–20; TEMP 36.2–36.7; O2SAT 91–99
[2021-04-11 03:44] LABS: Glucose, Whole Blood 76 mg/dL (60-115)
[2021-04-11] MEDS: Omeprazole 20 MG CAPSULE.DR PO (05:11)
[2021-04-11 06:06] LABS: Hematocrit 29.1 % (42-52); Hemoglobin 9.3 g/dl (14.0-18.0); Mean Corpuscular Hemoglobin 24.9 pg (27.0-33.0); Mean Corpuscular Volume 77.8 fL (80-98); Mean Platelet Volume 9.3 fL (9.4-12.4); Platelet Count 459 X10*3/uL (160-400); Red Blood Count 3.74 X10*6/uL (4.60-5.80); Red Cell Distribution Width 17.8 % (11.0-16.0); White Blood Count 7.8 X10*3/uL (4.8-10.8)
[2021-04-11 07:24] LABS: Glucose, Whole Blood 73 mg/dL (60-115)
[2021-04-11] MEDS: FLUoxetine HCl 10 MG CAPSULE 50 MG PO (08:41)
[2021-04-11] MEDS: Folic Acid 1 MG TABLET PO (08:42)
[2021-04-11] MEDS: Pregabalin 200 MG CAPSULE PO ×2 (08:42→20:43)
[2021-04-11] MEDS: Metoprolol Succinate ER 50 MG TAB.ER.24H PO (08:42)
[2021-04-11] MEDS: Ferrous Sulfate 324 MG TABLET.DR PO ×2 (08:42→17:29)
[2021-04-11] MEDS: PHENobarbitaL 30 MG TABLET 60 MG PO (08:42)
[2021-04-11] MEDS: Thiamine HCL 100 MG TABLET PO (08:43)
[2021-04-11] MEDS: amLODIPine Besylate 10 MG TABLET PO (08:43)
[2021-04-11] MEDS: Baclofen 10 MG TABLET 30 MG PO (08:43)
[2021-04-11 11:20] LABS: Glucose, Whole Blood 84 mg/dL (60-115)
[2021-04-11 11:39] LABS: Immature Retic Fraction 26.2 % (2.3-13.4); Retic HGB Equivalent 24.4 pg (30.0-35.0); Reticulocyte Percent 2.9 % (0.5-1.8); Reticulocytes Absolute 0.113 X10*6/uL (0.026-0.095)
[2021-04-11 12:18] LABS: Ferritin 15 ng/mL (20-250)
[2021-04-11 12:35] LABS: Iron 17 mcg/dL (45-160); Percent Iron Saturation 7 % (15-50); Total Iron Binding Capacity 243 mcg/dL (228-428); Unsaturated Iron Binding 226 ug/dL
[2021-04-11 12:46] LABS: Lactate Dehydrogenase 166 U/L (118-273)
[2021-04-11 12:57] LABS: Folate > 20.0 ng/mL (> or = 4.0); Vitamin B12 168 pg/mL (200-900)
[2021-04-11] MEDS: Baclofen 20 MG TABLET PO ×2 (14:32→20:43)
--- NOTE | 2021-04-11 15:27 | HO.PM.IMPN ---
Subjective Subjective Date of Service: 04/11/21 Interval History: Being followed for hallucination, alcohol withdrawal, patient awake alert this morning, denies bright red blood per rectum, complain of shortness of breath, no cough, no sputum production, no fevers no chills. Review of Systems General no headache, no dizziness, no fever chills.? CVS no chest pain, no palpitation.? Respiratory no cough, + sob.? Gastrointestinal no nausea ,no vomiting, no abdominal pain Review of Systems: Yes all other systems are reviewed and are negative Physical Exam Vital Signs: Vital Signs: Last Vital Signs Temp 98.0 F 04/11/21 15:14 Pulse 61 04/11/21 15:14 Resp 20 04/11/21 15:14 BP 111/69 04/11/21 15:14 Pulse Ox 99 04/11/21 15:14 Body Mass Index 33.3 General awake alert x3,no acute distress.? Necki supple, no JVD. CVS? regular rate rhythm, Respiratory lungs clear to auscultation, no respiratory distress, no wheeze, no rhonchi. Gastrointestinal abdomen soft, nontender, bowel sounds audible,no guarding Extremities no edema. Neuro speech clear, left hemiparesis (spastic) Psych appropriate affect Skin no rash ? Objective Data Active Medications Amlodipine Besylate (Amlodipine Besylate 10 Mg Tablet) 10 mg PO DAILY [facility]; Protocol Last Admin: 04/11/21 08:43 Dose: 10 mg Documented by: ZAIAD Atorvastatin Calcium (Atorvastatin Calcium 20 Mg Tablet) 20 mg PO BEDTIME [facility] Last Admin: 04/10/21 21:20 Dose: 20 mg Documented by: HUEY Baclofen (Baclofen 20 Mg Tablet) 20 mg PO TID [facility] Last Admin: 04/11/21 14:32 Dose: 20 mg Documented by: ZAIDA Dextrose (Dextrose 50 % 25 Gm/50 Ml Vial) 25 gm IVPUSH Q15M PRN; Protocol PRN Reason: per Hypoglycemia Standing Ord. Ferrous Sulfate (Ferrous Sulfate 324 Mg Tablet.) 324 mg PO DAILY [facility] Last Admin: 04/11/21 08:42 Dose: 324 mg Documented by: ZAIDA Fluoxetine HCl (Fluoxetine Hcl 10 Mg Capsule) 50 mg PO DAILY [facility] Last Admin: 04/11/21 08:41 Dose: 50 mg Documented by: ZAIDA Folic Acid (Folic Acid 1 Mg Tablet) 1 mg PO DAILY [facility] Last Admin: 04/11/21 08:42 Dose: 1 mg Documented by: ZAIDA Glucose (Glucose Gel 15 Gm Gel..Gram.) 15 gm PO Q15M PRN; Protocol PRN Reason: per Hypoglycemia Standing Ord. Insulin Human Lispro (Insulin Lispro 100 Unit/Ml 3 Ml Vial) 0 unit SUBCUT QIDACHS [facility]; Protocol Last Admin: 04/11/21 11:40 Dose: Not Given Documented by: DANIEL Non-Admin Reason: No Insulin Coverage Magnesium Hydroxide (Milk Of Magnesia 30 Ml Oral.Susp) 30 ml PO BEDTIME PRN PRN Reason: constipation Medication (No Benzodiazepines) 1 each MISCELLANE DAILY [facility] Metoprolol Succinate (Metoprolol Succinate Er 50 Mg Tab.Er.24h) 50 mg PO DAILY [facility]; Protocol Last Admin: 04/11/21 08:42 Dose: 50 mg Documented by: ZAIDA Omeprazole (Omeprazole 40 Mg Capsule.Dr) 40 mg PO DAILY@0630 [facility] Phenobarbital (Phenobarbital 30 Mg Tablet) 30 mg PO BID [facility]; Protocol Stop: 04/13/21 09:01 Phenobarbital (Phenobarbital 30 Mg Tablet) 30 mg PO DAILY [facility]; Protocol Stop: 04/15/21 09:01 Pregabalin (Pregabalin 200 Mg Capsule) 200 mg PO BID [facility] Last Admin: 04/11/21 08:42 Dose: 200 mg Documented by: ZAIDA Tamsulosin HCl (Tamsulosin Hcl 0.4 Mg Capsule) 0.4 mg PO BEDTIME [facility] Last Admin: 04/10/21 21:19 Dose: 0.4 mg Documented by: HUEY Thiamine HCl (Thiamine Hcl 100 Mg Tablet) 100 mg PO DAILY [facility] Last Admin: 04/11/21 08:43 Dose: 100 mg Documented by: ZAIDA Zinc Oxide (Zinc Oxide 20% Ointment 28.35 Gm Tube) 1 appl TOPICAL 8XD PRN PRN Reason: INCONTIENCE Labs CBC & Chem 7: 04/11/21 05:40 04/10/21 06:31 Labs: Laboratory Results - last 24 hr 04/10/21 04/10/21 04/11/21 16:11 19:53 03:39 MCV MCH MCHC RDW Plt Count MPV Absolute Nucleated RBC Nucleated RBC % (auto) Absolute Retic Percent Retic Immature Retic Fraction Retic Hgb Equivalent POC Glucose 101 84 76 Iron TIBC % Saturation Unsat Iron Binding Ferritin Lactate Dehydrogenase Vitamin B12 Folate 04/11/21 04/11/21 04/11/21 05:40 07:16 11:08 MCV 77.8 L MCH 24.9 L MCHC 32.0 RDW 17.8 H Plt Count 459 H MPV 9.3 L Absolute Nucleated RBC 0.000 Nucleated RBC % (auto) 0.0 Absolute Retic Percent Retic Immature Retic Fraction Retic Hgb Equivalent POC Glucose 73 84 Iron TIBC % Saturation Unsat Iron Binding Ferritin Lactate Dehydrogenase Vitamin B12 Folate 04/11/21 04/11/21 04/11/21 11:16 11:16 11:16 MCV MCH MCHC RDW Plt Count MPV Absolute Nucleated RBC Nucleated RBC % (auto) Absolute Retic 0.113 H Percent Retic 2.9 H Immature Retic Fraction 26.2 H Retic Hgb Equivalent 24.4 L POC Glucose Iron 17 L TIBC 243 % Saturation 7 L Unsat Iron Binding 226 Ferritin 15 L Lactate Dehydrogenase 166 Vitamin B12 168 L Folate > 20.0 Microbiology Microbiology Results: Microbiology 04/08/21 20:19 Blood Culture - Preliminary Blood - Venous No growth after 48 hours. 04/08/21 20:19 Blood Culture - Preliminary Blood - Venous No growth after 48 hours. 04/08/21 Unknown Urine Culture - Final Urine clean catch - Urine walker top Assessment and Plan (1) Anemia: Status: Acute (2) Delirium: Status: Acute (3) Alcohol abuse: Status: Acute (4) Visual hallucinations: Status: Acute (5) Muscle spasms of both lower extremities: Status: Acute (6) Alcohol abuse with withdrawal: Status: Acute (7) Wheelchair bound: Status: Acute Assessment and Plan: 70M presented with visual hallucinations visual hallucinations/acute delirium No further episodes of visual hallucination Patient seen by psych and they feel patient has delirium with multiple possibilities UTI ruled out In regard to alcohol withdrawal will continue phenobarb protocol Urine toxicology positive for fentanyl question falsely positive, GCMS pending No primary psychiatric diagnosis Patient do not take their own medications at long term, therefore misuse of medications less likely Most likely delirium is due to occult drug use/alcohol withdrawal Will obtain care team consult. lower GI bleed, concern for bright red blood per rectum, no further episodes of lower GI bleed, guaiac-positive stool, hematocrit dropped this morning, case discussed with Gastroenterology they recommend iron studies, haptoglobin, LDH, retic count, B12, folate and ferritin to rule out hemolysis /likely iron deficiency Will hold off on invasive procedures for now but if hematocrit continue to drop will consider in-house on endoscopy, continue po Prilosec Chronic Graff catheter due to urinary incontinence, will recommend change of catheter every 30 days ETOH dependence with risk for withdrawal Continue phenobarb, continue thiamine and folic acid history of CVA with left hemiparesis Continue asa, statin, eliquis baclofen for spasms history of DVT on eliquis DM Blood sugars stable continue insulin HTN BP stable continue toprol, and amlodipine and follow BP closely with few high blood pressure readings likely related to alcohol withdrawal dvt prophylaxis - on eliquis full code Quality Stroke Does the patient have a stroke diagnosis?: No VTE Prior VTE?: Yes VTE Risk Level:: Medical - moderate - high VTE Device Contraindication: Treatment Not Indicated VTE Drug Contraindication: N/A - Med Ordered
[2021-04-11 16:13] LABS: Glucose, Whole Blood 85 mg/dL (60-115)
[2021-04-11] MEDS: Cyanocobalamin (Vitamin B-12) 1,000 MCG/ML VIAL 1000 MCG IM (17:28)
[2021-04-11 20:26] LABS: Glucose, Whole Blood 112 mg/dL (60-115)
[2021-04-11] MEDS: PHENobarbitaL 30 MG TABLET PO (20:43)
[2021-04-11] MEDS: Atorvastatin Calcium 20 MG TABLET PO (20:43)
[2021-04-11] MEDS: Tamsulosin HCL 0.4 MG CAPSULE PO (20:43)
[2021-04-12] MEDS: Omeprazole 40 MG CAPSULE.DR PO (05:22)
[2021-04-12 07:12] VITALS: BP 158/74; PULSE 63; RESP 16; TEMP 36.3; O2SAT 98
[2021-04-12 07:26] LABS: Glucose, Whole Blood 80 mg/dL (60-115)
[2021-04-12] MEDS: Cyanocobalamin (Vitamin B-12) 1,000 MCG/ML VIAL 1000 MCG IM (08:44)
[2021-04-12 08:51] VITALS: BP 158/74; PULSE 63
[2021-04-12] MEDS: amLODIPine Besylate 10 MG TABLET PO (08:51)
[2021-04-12] MEDS: Baclofen 20 MG TABLET PO ×2 (08:51→14:23)
[2021-04-12] MEDS: FLUoxetine HCl 10 MG CAPSULE 50 MG PO (08:52)
[2021-04-12 08:54] VITALS: BP 158/74; PULSE 63
[2021-04-12] MEDS: Metoprolol Succinate ER 50 MG TAB.ER.24H PO (08:54)
[2021-04-12] MEDS: PHENobarbitaL 30 MG TABLET PO (08:54)
[2021-04-12] MEDS: Folic Acid 1 MG TABLET PO (08:54)
[2021-04-12] MEDS: Ferrous Sulfate 324 MG TABLET.DR PO ×2 (08:54→16:38)
[2021-04-12 08:55] LABS: Hematocrit 32.1 % (42-52)
[2021-04-12] MEDS: Pregabalin 200 MG CAPSULE PO (08:55)
[2021-04-12] MEDS: Thiamine HCL 100 MG TABLET PO (08:55)
[2021-04-12] MEDS: Docusate Sodium 100 MG CAPSULE 200 MG PO (08:55)
[2021-04-12] MEDS: polyethylene glycoL 3350 17 GM POWD.PACK PO (08:56)
[2021-04-12 11:18] VITALS: BP 125/64; PULSE 63; RESP 17; TEMP 36.6; O2SAT 96
[2021-04-12 11:37] LABS: Glucose, Whole Blood 79 mg/dL (60-115)
--- NOTE | 2021-04-12 14:30 | MHC.CM.PN ---
Per MD rounds discharge today. Called [facility] to notify staff of discharge. Requested that the paperwork they need to be faxed to office. Fax number provided. T/W called the Nurse, Alina Foster [phone]. She stated that she had just spoken with his nurse. She stated that it was reported by the nurse he has AMS. The nurse and MD we notified of the nurses response to the discharge today. Per MD she and the nurse reassess the patient and he can be discharged. The [facility] sent a person to assess the patient @ 12pm today. They feel that the patient is fine to return to the [facility] today. transport to be booked for 5pm.
[2021-04-12 15:25] VITALS: BP 137/73; PULSE 66; RESP 18; TEMP 37.2; O2SAT 92
--- NOTE | 2021-04-12 15:40 | PM.DS ---
DS: Providers Provider Date of Service: 04/12/21 Date of admission: 04/08/21 23:50 Primary care physician: Paco Emerson MD Consults: 04/09/21 08:44 Consult to Psychiatry Routine Consulting Provider: Psych Covering Reason for consultation: hallucinations, does not look like due to uti or withdrawal 04/09/21 16:49 Consult to Gastroenterology Routine Consulting Provider: Cornelia Iglesias Reason for consultation: lucia stools DS: Diagnosis Discharge Diagnosis (1) Anemia: Status: Acute (2) Delirium: Status: Acute (3) Alcohol abuse: Status: Acute (4) Visual hallucinations: Status: Acute (5) Muscle spasms of both lower extremities: Status: Acute (6) Alcohol abuse with withdrawal: Status: Acute (7) Wheelchair bound: Status: Acute DS: Summary Hospital Course Hospital Course: History of presenting illness Date of Service: 04/08/21 Chief Complaint: Hallucinations This is a 70-year-old male with past medical history of diabetes, hypertension, 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 Patient is alert and oriented x3, but reports that he has been seeing things.? For the past 2 days.? He reports no auditory hallucinations.? He does report also drinking alcohol daily about 1 nebs a day, his last drink was 2 days ago and that was due to his inability to obtain any alcohol at the assisted that he lives in.? Patient denies having any fevers or chills, no chest pain, no shortness of breath, no abdominal pain nausea or vomiting, no diarrhea or constipation, no lower extremity edema.? No headache change in vision or new weakness numbness or tingling. On arrival to the ED patient hemodynamically stable with no significant abnormal vitals Labs are significant for WBC of 10.2, hemoglobin of 10.7, troponin of 37.2, patient denies any chest pain UA that is positive? fo leukocyte Estrace and WBC, UDS positive for fentanyl, COVID-19 negative Past medical history COPD (chronic obstructive pulmonary disease) CVA (cerebral vascular accident) Diabetes type 2, controlled DVT (deep venous thrombosis) Essential hypertension Ileus Incontinence of feces Incontinence of urine Pressure ulcer, buttock Spastic paralysis Hospital course 70M presented with visual hallucinations and diagnosed to have acute delirium multiple possibilities ,UTI ruled out, doubt misuse of home medication, likely due to alcohol abuse and withdrawal patient treated with phenobarb Confusion and hallucination has resolved patient awake alert answering questions appropriately Urine toxicology positive for fentanyl and barbiturates, patient adamantly denies use of illicit drug, confirmatory test GCMS pending, patient seen by psychiatrist patient has no prior psychiatric history no new psych diagnosis strongly recommend to abstain from alcohol. Patient also noted to have self-limited episode of lower GI bleed, no further episodes of lower GI bleed noted, hematocrit remains stable, positive stool, iron studies consistent with iron deficiency anemia, patient also has B12 deficiency anemia, patient seen by Gastroenterology Dr. Kraus he recommend outpatient follow-up for upper endoscopy in next 1-2 weeks, patient has been started on iron supplements and vitamin B12 IM shots To be given daily for 5 more days followed by 1 short Q weekly for 4 weeks and then Q monthly IM vitamin B12 shots intrinsic factor antibody test is pending result can be followed with Gastroenterology. Chronic Graff catheter due to urinary incontinence, will recommend change of catheter every 30 days, urine culture negative history of CVA with left hemiparesis Continue asa, statin, eliquis, continue baclofen for spasms history of DVT continue on eliquis discussed with PCP when to stop Eliquis DM Blood sugars stable continue insulin HTN BP stable continue toprol, and amlodipine Time Spent with Patient Time attestation: Total time spent providing and/or coordinating discharge services: Discharge coordination time: Greater than 30 minutes Quality: Stroke Does the patient have a stroke diagnosis?: No Physical Exam Vital Signs: Vital Signs: Last Vital Signs Temp 99 F 04/12/21 15:25 Pulse 66 04/12/21 15:25 Resp 18 04/12/21 15:25 BP 137/73 04/12/21 15:25 Pulse Ox 92 04/12/21 15:25 Body Mass Index 33.3 General awake alert x3,no acute distress.? Necki supple, no JVD. CVS? regular rate rhythm, Respiratory lungs clear to auscultation, no respiratory distress, no wheeze, no rhonchi. Gastrointestinal abdomen soft, nontender, bowel sounds audible,no guarding Extremities no edema. Neuro speech clear, left hemiparesis (spastic) Psych appropriate affect Skin no rash DS: Data Data Completed and Pending Labs on day of discharge: Laboratory Results - last 24 hr 04/11/21 04/11/21 04/12/21 16:00 20:15 07:08 Hgb Hct POC Glucose 85 112 80 04/12/21 04/12/21 08:22 11:17 Hgb 10.0 L Hct 32.1 L POC Glucose 79 Preliminary micro results at discharge 04/08/21 20:19 Blood Culture - Preliminary Blood - Venous No growth after 48 hours. 04/08/21 20:19 Blood Culture - Preliminary Blood - Venous No growth after 48 hours. Discharge Plan Discharge Patient Disposition: Home, Self-Care Discharge Diagnosis: Acute delirium Lower GI bleed Iron deficiency anemia B12 deficiency anemia Alcohol dependence with withdrawal Referrals: Paco Emerson MD [Primary Care Provider] - 1 Week Discharge Medications: New cyanocobalamin (vitamin B-12) 1,000 mcg/mL Solution 1,000 mcg IM DAILY 5 Days Qty: 5 RF: 0 omeprazole 40 mg capsule,delayed release(DR/EC) 40 mg PO DAILY Qty: 30 RF: 0 Continued atorvastatin [Lipitor] 20 mg tablet 20 mg PO BEDTIME Qty: 90 RF: 2 diclofenac sodium [Arthritis Pain (diclofenac)] 1 % gel 4 g topical BID 30 Days Qty: 400 RF: 3 metformin 500 mg tablet 500 mg PO DAILY Qty: 90 RF: 2 tamsulosin [Flomax] 0.4 mg capsule 0.4 mg PO BEDTIME Qty: 90 RF: 2 folic acid 1 mg tablet 1 mg PO DAILY Qty: 90 RF: 2 baclofen 10 mg tablet 10 mg PO TID 90 Days Qty: 270 RF: 2 baclofen 20 mg tablet 20 mg PO TID 90 Days Qty: 270 RF: 2 Eliquis 5 mg tablet 5 mg PO BID 30 Days Qty: 60 RF: 4 thiamine HCl (vitamin B1) 100 mg tablet 100 mg PO DAILY Qty: 90 RF: 2 pregabalin 200 mg capsule 200 mg PO BID 30 Days Qty: 60 RF: 1 fluoxetine 40 mg capsule 40 mg PO DAILY RF: 0 docusate sodium [Colace] 100 mg Capsule 100 mg PO BID RF: 0 aspirin 81 mg Tablet,Chewable 81 mg PO DAILY RF: 0 zinc oxide 40 % Ointment 1 appl TOPICAL 8XD PRN (Reason: INCONTIENCE) RF: 0 amlodipine 10 mg tablet 10 mg PO DAILY 90 Days Qty: 90 RF: 3 metoprolol succinate 50 mg tablet extended release 24 hr 50 mg PO DAILY 90 Days Qty: 90 RF: 3 fluoxetine 10 mg capsule 10 mg PO DAILY RF: 0 Changed ferrous sulfate 325 mg (65 mg iron) tablet 325 mg PO BIDWMEAL Qty: 90 RF: 2 Discharge Orders: Discharge Order (Routine); Ordered 04/12/21 Ordered By: Joan Banegas Diet: diabetic diet Activity on Discharge: As tolerated Stand Alone Forms: Patient Portal Discharge page Care Plan Goals: Alcohol withdrawal and delirium, now resolved, transient episode of rectal bleed hematocrit stable take PPI, continue all other home medication, noted to have iron deficiency anemia and B12 deficiency anemia, take vitamin B12 IM short once daily for 5 more days then Q weekly for 1 month and then once a month. Health Concerns: Alcohol abuse strongly recommend to abstain from alcohol Plan of Treatment: Outpatient follow-up with Dr. Kraus for upper endoscopy in next 1 week, outpatient follow-up with primary care physician Assessment: As above
[2021-04-12 16:14] LABS: Glucose, Whole Blood 103 mg/dL (60-115)
[2021-04-15 21:41] LABS: Haptoglobin 183 mg/dL (43-212)
[2021-04-17 00:07] LABS: Intrinsic Factor Antibodies Positive (Negative)
== END 2021-04-12 18:43 | disposition home or self-care (01) | DRG 897 ==
LOC: HO.ED 21:44 → HO.EDOVER 23:58 → HO.IMC 04-09 13:54
PROVIDERS: Internal Medicine; Nurse Practitioner Family; Admitting Provider Internal Medicine; Emergency Provider Internal Medicine; PCP Family Medicine; Visit Provider Hospitalist
DX: F10.231 Alcohol dependence with withdrawal delirium (principal); I69.854 Hemiplegia and hemiparesis following other cerebrovascular disease affecting left non-dominant side; K92.2 Gastrointestinal hemorrhage, unspecified; F17.210 Nicotine dependence, cigarettes, uncomplicated; I10 Essential (primary) hypertension; Z99.3 Dependence on wheelchair; M62.838 Other muscle spasm; J44.9 Chronic obstructive pulmonary disease, unspecified; R32 Unspecified urinary incontinence; Z96.0 Presence of urogenital implants; D50.9 Iron deficiency anemia, unspecified; Z20.822 Contact with and (suspected) exposure to COVID-19; Z71.6 Tobacco abuse counseling; Z86.718 Personal history of other venous thrombosis and embolism; Z79.01 Long term (current) use of anticoagulants; Z79.82 Long term (current) use of aspirin; Z79.899 Other long term (current) drug therapy
CPT/HCPCS: 0241U; 36415; 71045; 80048; 80076; 80307; 80364; 80365; 81001; 82272; 82607; 82728; 82746; 82947; 83010; 83540; 83605; 83615; 83690; 84484; 85014; 85018; 85025; 85027; 85045; 86340; 87040; 87086; 93005; 96365; 99284; 99291; J1956; J2405; J2560

== ENCOUNTER → 2021-05-03 11:45 | Outpatient (BNVA) | payer MEDICARE, MEDICAID, SELFPAY | PROVIDERS: PCP Family Medicine; Visit Provider Internal Medicine Gastroenterology | CPT/HCPCS: Q3014 ==

== ENCOUNTER 2021-05-09 08:53 | Outpatient (REF) | payer MEDICARE, MEDICAID, SELFPAY ==
[2021-05-09 09:08] LABS: MANUAL DIFF FLAG NO
[2021-05-09 09:16] LABS: Basophils Percent Auto 0.4 % (0-2); Eosinophils Absolute Auto 0.1 X10*3/uL (0.0-0.4); Eosinophils Percent Auto 1.8 % (0-4); Hematocrit 27.8 % (42.0-52.0); Hemoglobin 8.4 g/dl (14.0-18.0); Imm Gran Abs Auto 0.02 X10*3/uL (0.00-0.03); Imm Gran Pct Auto 0.3 % (0.0-0.4); Lymphocytes Absolute Auto 2.4 X10*3/uL (1.2-4.9); Lymphocytes Percent Auto 31.6 % (20-40); Mean Corpuscular HGB Conc 30.2 g/dl (31.0-36.0); Mean Corpuscular Hemoglobin 22.8 pg (27.0-33.0); Mean Corpuscular Volume 75.3 fL (80.0-98.0); Mean Platelet Volume 9.3 fL (9.4-12.4); Monocytes Absolute Auto 0.8 X10*3/uL (0.1-1.2); Monocytes Percent Auto 10.4 % (2-11); Neutrophils Absolute Auto 4.25 x10*3/uL (2.0-8.3); Neutrophils Percent Auto 55.5 % (45-73); Platelet Count 478 X10*3/uL (160-400); Red Blood Count 3.69 X10*6/uL (4.60-5.80); Red Cell Distribution Width 17.2 % (11.0-16.0); White Blood Count 7.7 X10*3/uL (4.8-10.8)
[2021-05-09 09:20] LABS: Ammonia 22 umol/L (13-55)
[2021-05-09 09:52] LABS: Alanine Aminotransferase 11 U/L (0-40); Albumin Level 3.2 g/dL (3.5-5.0); Alkaline Phosphatase 64 U/L (39-117); Anion Gap 13 (12-20); Aspartate Amino Transferase 16 U/L (5-37); Bilirubin Total 0.2 mg/dL (0.0-1.0); Blood Urea Nitrogen 5 mg/dL (9-16); Calcium 8.2 mg/dL (8.4-10.2); Carbon Dioxide 24 mmol/L (22-29); Chloride 105 mmol/L (96-108); Estimated Glomerular Filt Rate > 60; Glucose Fasting 96 mg/dL (60-99); Potassium 4.8 mmol/L (3.3-5.1); Sodium 137 mmol/L (135-145); Total Protein 6.5 g/dL (6.5-8.0)
[2021-05-09 10:13] LABS: TSH reflex Free T4 1.52 uIU/mL (0.32-4.0)
== END 2021-05-09 08:54 | disposition home or self-care (01) ==
LOC: HO.LAB 08:53
PROVIDERS: Visit Provider Family Medicine
DX: Z00.00 Encounter for general adult medical examination without abnormal findings (principal); R41.0 Disorientation, unspecified; R44.3 Hallucinations, unspecified
CPT/HCPCS: 36415; 80053; 82140; 84443; 85025

== ENCOUNTER 2021-07-29 10:39 | Day surgery (SDC) | payer MEDICARE, MEDICAID, SELFPAY ==
--- NOTE | 2021-06-27 10:24 | HO.ANESPROP2 ---
HPI - Anesthesia Eval Consult details Narrative: Reschedule d/t not prepping. (From facility.) 70yo M for Upper Endoscopy and Colonoscopy CVA with residual paralysis - wheelchair bound Eliquis for h/o DVT PMFSH Active Problems Active Problems: All Active Problems (Updated 06/21/21 @ 14:19 by Jannette Gomes, RN) Erika rash of groin (Acute) Left ear pain (Acute) Right knee pain (Acute) Close exposure to 2019 novel coronavirus (Acute) Adult general medical exam (Acute) UTI (urinary tract infection) (Acute) Low oxygen saturation (Acute) Hallucinations (Acute) Pressure ulcer of foot, stage 1 (Acute) Ulcer (Acute) Diarrhea (Acute) Constipation (Acute) Alcohol abuse (Acute) Anemia (Acute) Confusion (Acute) Daytime sleepiness (Acute) GI bleed (Acute) Muscle spasms of both lower extremities (Acute) Past Medical History Medical History (Updated 06/21/21 @ 14:19 by Jannette Gomes RN) COPD (chronic obstructive pulmonary disease) CVA (cerebral vascular accident) Diabetes type 2, controlled DVT (deep venous thrombosis) Essential hypertension Hypertension, essential Ileus Incontinence of feces Incontinence of urine Left-sided weakness Muscle spasms of both lower extremities On anticoagulant therapy On beta stefan at home Pressure ulcer, buttock Spastic paralysis Wheelchair bound Family History Family History Mother No problems noted. Father No problems noted. Surgical History Surgical History History of cholecystectomy Social History Social History Household Members: Other Housing: Other Housing Other:: detention. Do you presently have visiting nurse or other home services: No Alcohol intake: current Alcohol intake frequency: 0-2 drinks per day Alcohol type: hard liquor Patient Tobacco Use Status: Current everyday Tobacco user Tobacco use type: Cigarette Cigarettes Per Day: 10 e-Cigarette/Vaping Use: Never Used Second Hand Smoke Exposure: Yes service: No Current occupational status: disabled Cognitive needs: Yes (Wheel chair) Vision needs: Yes (Glasses) Meds Allergies Allergy/AdvReac Type Severity Reaction Status Date / Time No Known Allergies Allergy Verified 06/06/21 15:53 Home Medications Medication Instructions Recorded Confirmed Last Taken Type fluoxetine 10 mg capsule 10 mg PO DAILY 07/11/20 06/21/21 Unknown History aspirin 81 mg chewable tablet 81 mg PO DAILY 04/09/21 06/21/21 Unknown History fluoxetine 40 mg capsule 40 mg PO DAILY 04/09/21 06/21/21 Unknown History zinc oxide 40 % topical ointment 1 appl TOPICAL 8XD PRN 04/09/21 06/21/21 Unknown History Exam Exam Date and Time: June 27, 2021 1024 Pertinent Lab Results Pertinent Lab Results: Laboratory Tests 05/09/21 05/09/21 09:01 09:01 WBC 7.7 Hgb 8.4 L Hct 27.8 L Plt Count 478 H Sodium 137 Potassium 4.8 D Chloride 105 Carbon Dioxide 24 BUN 5 L Creatinine 0.62 Narrative Narrative: EKG 04/2021 Vent. Rate : 073 BPM ? ? Atrial Rate : 500 BPM ?? P-R Int : 000 ms? QRS Dur : 072 ms ? ? QT Int : 438 ms ? ? ? P-R-T Axes : 000 052 097 degrees ?? QTc Int : 482 ms ? Poor data quality, interpretation may be adversely affected Normal sinus rhythm Nonspecific T wave abnormality Abnormal ECG No previous ECGs available Assessment and Plan Assessment Anesthesia Assessment: Chart Reviewed
--- NOTE | 2021-07-26 11:58 | P.CONAN_ITS ---
Documented by User: Kadie Thomas NP 07/26/21 12:01 HPI - Anesthesia Eval Consult details Narrative: Reschedule d/t not prepping 06/2021. 70yo M for Upper Endoscopy and Colonoscopy CVA with residual paralysis - wheelchair bound Eliquis for h/o DVT PMFSH Active Problems Active Problems: All Active Problems (Updated 06/21/21 @ 14:19 by Jannette Gomes RN) Erika rash of groin (Acute) Left ear pain (Acute) Right knee pain (Acute) Close exposure to 2019 novel coronavirus (Acute) Adult general medical exam (Acute) UTI (urinary tract infection) (Acute) Low oxygen saturation (Acute) Hallucinations (Acute) Pressure ulcer of foot, stage 1 (Acute) Ulcer (Acute) Diarrhea (Acute) Constipation (Acute) Alcohol abuse (Acute) Anemia (Acute) Confusion (Acute) Daytime sleepiness (Acute) GI bleed (Acute) Muscle spasms of both lower extremities (Acute) Past Medical History Medical History (Updated 07/29/21 @ 12:22 by Tania De Dios MD) COPD (chronic obstructive pulmonary disease) CVA (cerebral vascular accident) Diabetes type 2, controlled DVT (deep venous thrombosis) Essential hypertension Hypertension, essential Ileus Incontinence of feces Incontinence of urine Left-sided weakness Muscle spasms of both lower extremities On anticoagulant therapy On beta stefan at home Pressure ulcer, buttock Spastic paralysis Wheelchair bound Family History Family History Mother No problems noted. Father No problems noted. Surgical History Surgical History History of cholecystectomy Social History Social History Household Members: Other Housing: Other Housing Other:: alf. Do you presently have visiting nurse or other home services: No Alcohol intake: current Alcohol intake frequency: 0-2 drinks per day Alcohol type: hard liquor Patient Tobacco Use Status: Current everyday Tobacco user Tobacco use type: Cigarette Cigarettes Per Day: 10 e-Cigarette/Vaping Use: Never Used Second Hand Smoke Exposure: Yes Use of substances other than those prescribed or required for medical reasons: No Are you DNR?: No Advance Directives: No Advance Directives Information Provided: Yes service: No Current occupational status: disabled Cognitive needs: Yes (Wheel chair) Hearing needs: No Vision needs: Yes (Glasses) Meds Allergies Allergy/AdvReac Type Severity Reaction Status Date / Time No Known Allergies Allergy Verified 07/18/21 11:57 Home Medications Medication Instructions Recorded Confirmed Last Taken Type fluoxetine 10 mg capsule 10 mg PO DAILY 07/11/20 06/21/21 Unknown History aspirin 81 mg chewable tablet 81 mg PO DAILY 04/09/21 06/21/21 Unknown History fluoxetine 40 mg capsule 40 mg PO DAILY 04/09/21 06/21/21 Unknown History zinc oxide 40 % topical ointment 1 appl TOPICAL 8XD PRN 04/09/21 06/21/21 Unknown History Exam Exam Date and Time: July 26, 2021 1158 Pertinent Lab Results Pertinent Lab Results: Laboratory Tests 05/09/21 05/09/21 09:01 09:01 WBC 7.7 Hgb 8.4 L Hct 27.8 L Plt Count 478 H Sodium 137 Potassium 4.8 D Chloride 105 Carbon Dioxide 24 BUN 5 L Creatinine 0.62 Narrative Narrative: EKG 04/2021 Vent. Rate : 073 BPM ? ? Atrial Rate : 500 BPM ?? P-R Int : 000 ms? QRS Dur : 072 ms ? ? QT Int : 438 ms ? ? ? P-R-T Axes : 000 052 097 degrees ?? QTc Int : 482 ms ? Poor data quality, interpretation may be adversely affected Normal sinus rhythm Nonspecific T wave abnormality Abnormal ECG No previous ECGs available Assessment and Plan Assessment Anesthesia Assessment: Chart Reviewed Documented by User: Tania De Dios MD 07/29/21 13:16 [facility] Past Medical History Medical History (Updated 07/29/21 @ 12:22 by Tania De Dios MD) COPD (chronic obstructive pulmonary disease) CVA (cerebral vascular accident) Diabetes type 2, controlled DVT (deep venous thrombosis) Essential hypertension Hypertension, essential Ileus Incontinence of feces Incontinence of urine Left-sided weakness Muscle spasms of both lower extremities On anticoagulant therapy On beta stefan at home Pressure ulcer, buttock Spastic paralysis Wheelchair bound Family History Family History Mother No problems noted. Father No problems noted. Family history of problems with anesthesia: No Surgical History Surgical History History of cholecystectomy History of Problems with Anesthesia: No Social History Social History Household Members: Other Housing: Other Housing Other:: alf. Do you presently have visiting nurse or other home services: No Alcohol intake: current Alcohol intake frequency: 0-2 drinks per day Alcohol type: hard liquor Patient Tobacco Use Status: Current everyday Tobacco user Tobacco use type: Cigarette Cigarettes Per Day: 10 e-Cigarette/Vaping Use: Never Used Second Hand Smoke Exposure: Yes Use of substances other than those prescribed or required for medical reasons: No Are you DNR?: No Advance Directives: No Advance Directives Information Provided: Yes service: No Current occupational status: disabled Cognitive needs: Yes (Wheel chair) Hearing needs: No Vision needs: Yes (Glasses) Meds Allergies Allergy/AdvReac Type Severity Reaction Status Date / Time No Known Allergies Allergy Verified 07/18/21 11:57 Home Medications Medication Instructions Recorded Confirmed Last Taken Type fluoxetine 10 mg capsule 10 mg PO DAILY 07/11/20 06/21/21 Unknown History aspirin 81 mg chewable tablet 81 mg PO DAILY 04/09/21 06/21/21 Unknown History fluoxetine 40 mg capsule 40 mg PO DAILY 04/09/21 06/21/21 Unknown History zinc oxide 40 % topical ointment 1 appl TOPICAL 8XD PRN 04/09/21 06/21/21 Unknown History Exam Height,Weight and Vital Signs: Height 6 ft 2 in Weight 115.666 kg Vital Signs Temp Pulse Resp BP Pulse Ox 07/29/21 12:10 97.0 F 62 16 138/94 H 96 Narrative Narrative: EKG 04/2021 Vent. Rate : 073 BPM ? ? Atrial Rate : ?? P-R Int : 000 ms? QRS Dur : 072 ms ? ? QT Int : 438 ms ? ? ? P-R-T Axes : 000 052 097 degrees ?? QTc Int : 482 ms ? Poor data quality, interpretation may be adversely affected Normal sinus rhythm Nonspecific T wave abnormality Abnormal ECG No previous ECGs available Airway Mallampati Class: II TM Dist: >3cm Neck ROM: Full Denture: Upper Loose/Missing/Broken Teeth: Yes (No teeth bottom) Heart: RRR Lungs: CTAB Assessment and Plan Assessment Anesthesia Assessment: Anesthesia Plan Discussed Final Anesthetic Review Family History of Problems with Anesthesia: No History of Problems with Anesthesia: No NPO: Yes ASA Class: III Final Preanesthetic Review: No Changes in Pt Med Stat and Meds/Allgs Chart Reviewed Patient Risk: Intermediate Procedure Risk: Low Assessment/Block/Sedation in SS: Assess/Block/Sedation-SS Anesthetic Plan Anesthetic Plan: MAC: Disposition: Standard PACU
--- NOTE | 2021-07-29 11:16 | P.HPSUR_ITS ---
Pre-Procedural Eval Section A Date of Service: 07/29/21 Section B Chief Complaint: Anemia, Bowel Obstruction Relevant Family History (Specify if Yes): No Relevant Social History: Tobacco Use Present Medications: see Short Stay Collaborative assessment Medical History: Significant History (COPD (chronic obstructive pulmonary disease) CVA (cerebral vascular accident) Diabetes type 2, controlled DVT (deep venous thrombosis) Essential hypertension Hypertension, essential Ileus Incontinence of feces Incontinence of urine Left-sided weakness Muscle spasms of both lower extremities On antic) History of Previous Operations: Relevant previous surgery/procedure and date(s) (cholecystectomy) Allergies: Allergies Allergy/AdvReac Type Severity Reaction Status Date / Time No Known Allergies Allergy Verified 07/18/21 11:57 Review of Systems Sugical H&P ROS: Negative: Constitution, Cardiovascular, Respiratory, Neurological, Psychiatric, Hem-Onc, Allergic/Immunologic, Gastrointestinal, Genitourinary, Musculoskeletal, Integumentary, Endocrine and Eyes/Ears/Nose/ Throat Exam Surgical H&P Exam: Normal: HEENT, Normal: Heart, Normal: Lungs, Normal: Abdomen and Normal: Skin and Significant Findings: Extremities (contracted hands, spasticity) and Significant Findings: Neurological (in wheelchair, has urine catheter in place) Plan Diagnosis/Plan: Unchanged I have reviewed the history and physical and performed a pertinent physical examination on my patient. No changes have occurred unless specified.
[2021-07-29 11:42] LABS: Glucose, Whole Blood 84 mg/dL (60-115)
[2021-07-29 12:00] VITALS: BMI 32.7
[2021-07-29 12:10] VITALS: BP 138/94; PULSE 62; RESP 16; TEMP 36.1; O2SAT 96
[2021-07-29] MEDS: Lactated Ringers 1,000 ML 100 ML IVCONT (12:21)
--- NOTE | 2021-07-29 12:23 | P.BOP_ITS ---
Brief Operative Note Date of Service: 07/29/21 Pre-op diagnosis: anemia Post-op diagnosis: same Procedure: see op note Surgeon: Ruddy Madrid MD Anesthesia: MAC Was an Tool Honing Machine Set Up Operator used for this Procedure?: No Estimated blood loss (mL): 0 Condition: stable Disposition: PACU
--- NOTE | 2021-07-29 12:24 | W.PM.OPN ---
Operative Note Operative Note Date of Service: 07/29/21 Narrative: Operative Information Procedure Description: EGD, Colonoscopy FLEXIBLE TRANSORAL UPPER GASTROINTESTINAL ENDOSCOPY AND COLONOSCOPY PROCEDURE NOTE UPPER ENDOSCOPY Consent: Indications for the procedure and potential complications of bleeding, perforation, reaction to medications and missed diagnosis were discussed with the patient and informed consent was obtained. Instrument: Olympus GIF H 190 J mid size upper endoscope Monitoring: Vital signs and clinical assessment, continuous EKG monitoring, Pulse oximetry, Carbon Dioxide monitoring and blood pressure monitoring were done throughout the procedure. Procedure: The patient was placed in the left lateral decubitis position and pre-procedure medications were administered and a bite block was placed. The endoscope was inserted into the mouth and advanced under direct vision to the third part of duodenum. A careful inspection was made as the upper endoscope was withdrawn including a retroflexed examination of the proximal stomach; Findings and interventions are described below. Findings: Larynx:normal Esophagus: GE junction at 40 cm, diaphragm hiatus at 40 cm, normal mucosa, possible some v mild candidiasis Stomach: Normal mucosa. Biopsies were obtained. Grade 2 flap valve on retroflexed examination of the cardia. Duodenum: Normal bulb and descending duodenum, bx taken Intervention: Biopsies as noted above COLONOSCOPY Instrument: Olympus variable stiffness adult scope 190L Colonoscopy Monitoring: Vital signs and clinical assessment, continuous EKG monitoring, Pulse oximetry, Carbon Dioxide monitoring and blood pressure monitoring were done throughout the procedure. Colon withdrawal time was 41 minutes. Procedure: The patient was placed in the left lateral decubitis position and pre-procedure medications were administered. After a digital rectal examination of the ano-rectum, the video colonoscope was inserted into the rectum and advanced through the colon to the cecum/TI. The colonoscope was slowly withdrawn in a retrograde panoramic fashion and the colon mucosa was carefully examined including a retroflexed view of the rectum. Findings and interventions are described below. Procedure Difficulty:moderate, looping Findings: Terminal Ileum-not intubated Cecum:normal Ascending Colon: 15-18 mm lateral spreading granular polyp lesion noted at proximal ascending colon, injected with ORISE and then piece meal resected using hot snare, 4 clips apllied for hemostasis and edges ablated with soft tip coag Transverse Colon -normal Descending Colon: 18-10 mm lateral spreading granular polyp lesion noted at proximal descending colon, injected with ORISE and then piece meal resected using hot snare, 4 clips applied for hemostasis and edges ablated with soft tip coag Hemospray then liberally applied Sigmoid Colon: mild diverticulosis Rectum: Retroflexion not done due to poor prep and stool in rectum Anorectum - normal Colon preparation: Gilbert Bowel Preparation Scale Right colon; 2 Transverse colon: 2 Left colon; 1 (0 = Unprepared colon segment with mucosa not seen due to solid stool that cannot be cleared. 1 = Portion of mucosa of the colon segment seen, but other areas of the colon segment not well seen due to staining, residual stool and/or opaque liquid. 2 = Minor amount of residual staining, small fragments of stool and/or opaque liquid, but mucosa of colon segment seen well. 3 = Entire mucosa of colon segment seen well with no residual staining, small fragments of stool or opaque liquid) Impression and Post Procedure Diagnosis: Endoscopy Findings: possible candidiasis, v mild Colonoscopy Findings: polyps diverticulosis Plan: Await Pathology results Repeat Colonoscopy in 3-6 months or earlier if clinically indicated High fiber diet leaflet avoid straining at stool, epsom salts and sitz bath, anusol supps or cream HOLD APIXIBAN for 48 hours - restart Thu or morning Above findings were reviewed with the patient and relevant handouts were provided if indicated.
[2021-07-29 13:39] VITALS: BP 136/68; PULSE 80; RESP 18; TEMP 36.4; O2SAT 100
[2021-07-29 13:54] VITALS: BP 154/64; PULSE 78; RESP 18; TEMP 36.1; O2SAT 98
== END 2021-07-29 15:28 | disposition home or self-care (01) ==
PROVIDERS: PCP Family Medicine; Visit Provider Internal Medicine Gastroenterology
PROC: (CPT 45385; principal; 2021-07-29 11:30)
DX: D64.9 Anemia, unspecified (principal); K56.609 Unspecified intestinal obstruction, unspecified as to partial versus complete obstruction; K63.5 Polyp of colon; K57.30 Diverticulosis of large intestine without perforation or abscess without bleeding; K44.9 Diaphragmatic hernia without obstruction or gangrene; K56.7 Ileus, unspecified; G83.9 Paralytic syndrome, unspecified; J44.9 Chronic obstructive pulmonary disease, unspecified; I10 Essential (primary) hypertension; E11.9 Type 2 diabetes mellitus without complications; I69.954 Hemiplegia and hemiparesis following unspecified cerebrovascular disease affecting left non-dominant side; Z79.01 Long term (current) use of anticoagulants; Z79.82 Long term (current) use of aspirin; Z79.899 Other long term (current) drug therapy; M62.838 Other muscle spasm; R15.9 Full incontinence of feces; R32 Unspecified urinary incontinence; Z72.89 Other problems related to lifestyle; F17.210 Nicotine dependence, cigarettes, uncomplicated; Z99.3 Dependence on wheelchair; Z90.49 Acquired absence of other specified parts of digestive tract
CPT/HCPCS: 45385; 45381; 43239; 82947; 88305; 88342; J0171; J2370

== ENCOUNTER → 2021-08-19 12:46 | Outpatient (BNVA) | payer OTHER, MEDICAID, SELFPAY | PROVIDERS: PCP Family Medicine; Referring Provider Family Medicine; Visit Provider Internal Medicine Gastroenterology | DX: K59.00 Constipation, unspecified (principal); K63.5 Polyp of colon | CPT/HCPCS: 99212 ==

== ENCOUNTER → 2021-08-20 10:38 | Outpatient (BNVA) | payer OTHER, MEDICAID, SELFPAY | PROVIDERS: PCP Family Medicine; Referring Provider Family Medicine; Visit Provider Psychiatry & Neurology Neurology | DX: G47.62 Sleep related leg cramps (principal); G47.10 Hypersomnia, unspecified; R06.83 Snoring; R06.81 Apnea, not elsewhere classified | CPT/HCPCS: 99202 ==

== ENCOUNTER 2021-09-23 12:14 | Outpatient (REF) | payer MEDICARE, SELFPAY ==
[2021-09-23 13:53] LABS: MANUAL DIFF FLAG NO
[2021-09-23 14:03] LABS: Basophils Percent Auto 0.3 % (0-2); Eosinophils Absolute Auto 0.1 X10*3/uL (0.0-0.4); Hematocrit 28.8 % (42.0-52.0); Imm Gran Abs Auto 0.03 X10*3/uL (0.00-0.03); Imm Gran Pct Auto 0.3 % (0.0-0.4); Lymphocytes Absolute Auto 1.9 X10*3/uL (1.2-4.9); Lymphocytes Percent Auto 20.4 % (20-40); Mean Corpuscular HGB Conc 27.8 g/dl (31.0-36.0); Mean Corpuscular Volume 68.4 fL (80.0-98.0); Mean Platelet Volume 9.8 fL (9.4-12.4); Monocytes Absolute Auto 0.7 X10*3/uL (0.1-1.2); Monocytes Percent Auto 7.1 % (2-11); Neutrophils Absolute Auto 6.5 x10*3/uL (2.0-8.3); Neutrophils Percent Auto 70.9 % (45-73); Platelet Count 438 X10*3/uL (160-400); Red Blood Count 4.21 X10*6/uL (4.60-5.80); Red Cell Distribution Width 25.5 % (11.0-16.0); White Blood Count 9.1 X10*3/uL (4.8-10.8)
[2021-09-23 14:17] LABS: B Type Natriuretic Peptide 199 pg/mL (<100)
[2021-09-23 14:19] LABS: Alanine Aminotransferase 12 U/L (0-40); Albumin Level 3.1 g/dL (3.5-5.0); Alkaline Phosphatase 76 U/L (39-117); Anion Gap 11 (12-20); Aspartate Amino Transferase 11 U/L (5-37); Bilirubin Total 0.9 mg/dL (0.0-1.0); Blood Urea Nitrogen 7 mg/dL (9-16); Carbon Dioxide 26 mmol/L (22-29); Chloride 105 mmol/L (96-108); Estimated Glomerular Filt Rate > 60; Glucose Random 86 mg/dL (60-115); Potassium 4.6 mmol/L (3.3-5.1); Sodium 137 mmol/L (135-145); Total Protein 6.2 g/dL (6.5-8.0)
== END 2021-09-23 12:15 | disposition home or self-care (01) ==
LOC: HO.WFDLDS 12:14
PROVIDERS: Visit Provider Family Medicine
DX: Z00.00 Encounter for general adult medical examination without abnormal findings (principal); D64.9 Anemia, unspecified; I50.9 Heart failure, unspecified
CPT/HCPCS: 36415; 80053; 83880; 85025

== ENCOUNTER 2021-09-24 16:46 | Outpatient (REF) | payer MEDICARE, SELFPAY ==
--- NOTE | ~2021-09-24 | XR_ITS ---
EXAMINATION: XR CHEST CLINICAL INFORMATION: Heart failure. COMPARISON: Chest radiograph dated from 04/08/2021. TECHNIQUE: AP view of the chest was obtained. FINDINGS: Stable cardiomegaly and aneurysmatic dilatation of the thoracic aorta. Chronic interstitial thickening without new superimposed focal airspace opacities, pleural effusions or pneumothorax. Prominent costochondral cartilage limits evaluation of the lung apices. No definite acute osseous abnormalities. XR/XR chest 1V IMPRESSION: No acute cardiopulmonary findings.
== END 2021-09-24 16:47 | disposition home or self-care (01) ==
LOC: HO.HMGCX 16:46
PROVIDERS: PCP Family Medicine; Visit Provider Family Medicine
DX: I50.9 Heart failure, unspecified (principal)
CPT/HCPCS: 71045

== ENCOUNTER → 2021-10-23 13:48 | Outpatient (BNVA) | payer MEDICARE, SELFPAY | PROVIDERS: PCP Family Medicine; Visit Provider Nurse Practitioner Family | DX: M25.561 Pain in right knee (principal) | CPT/HCPCS: 99202 ==

== ENCOUNTER 2021-10-28 11:43 | Outpatient (REF) | payer MEDICARE, SELFPAY ==
[2021-10-28 14:04] LABS: Appearance Urine CLOUDY; Color Urine YELLOW; Glucose Urine UA NEG (NEG); Leukocyte Esterase Urine 3+ (NEG); Nitrite Urine NEG (NEG); PH 5.5 (5.0-8.0); Urine Blood 3+ (NEG); Urine Ketones NEG (NEG); Urine Protein TRACE MG/DL (NEG-TRACE)
[2021-10-28 15:12] LABS: Bacteria Urine 4+ /LPF; WBC Urine TNTC /HPF (0-4)
== END 2021-10-28 11:44 | disposition home or self-care (01) ==
LOC: HO.LAB 11:43
PROVIDERS: Visit Provider Family Medicine
DX: Z00.00 Encounter for general adult medical examination without abnormal findings (principal); R31.9 Hematuria, unspecified; R82.90 Unspecified abnormal findings in urine; Z16.11 Resistance to penicillins; Z96.0 Presence of urogenital implants
CPT/HCPCS: 81001; 81003; 87086; 87088; 87186

== ENCOUNTER → 2021-11-25 10:25 | Outpatient (BNVA) | payer MEDICARE, SELFPAY | PROVIDERS: PCP Family Medicine; Referring Provider Family Medicine; Visit Provider Internal Medicine Gastroenterology | DX: K92.2 Gastrointestinal hemorrhage, unspecified (principal); K59.00 Constipation, unspecified | CPT/HCPCS: 99212 ==

== ENCOUNTER → 2021-12-05 09:50 | Outpatient (REF) | payer MEDICARE, SELFPAY | LOC: HO.SL 09:50 | PROVIDERS: Visit Provider Psychiatry & Neurology Neurology | DX: Z13.89 Encounter for screening for other disorder (principal) ==

== ENCOUNTER 2022-03-27 10:00 | Day surgery (SDC) | payer MEDICARE, SELFPAY ==
[2022-03-25 09:34] VITALS: BMI 32.1
--- NOTE | 2022-03-27 10:19 | MHC.SHP ---
Pre-Procedural Eval Section A Date of Service: 03/27/22 Section B Chief Complaint: Personal history of colonic polyps Relevant Family History (Specify if Yes): No Relevant Social History: Tobacco Use Present Medications: see Short Stay Collaborative assessment Medical History: Significant History (COPD (chronic obstructive pulmonary disease) CVA (cerebral vascular accident) Diabetes type 2, controlled DVT (deep venous thrombosis) Essential hypertension Hypertension, essential Ileus Incontinence of feces Incontinence of urine Left-sided weakness Muscle spasms of both lower extremities On antic) History of Previous Operations: Relevant previous surgery/procedure and date(s) (History of cholecystectomy History of esophagogastroduodenoscopy (EGD) Hx of colonoscopy) Allergies: Allergies Allergy/AdvReac Type Severity Reaction Status Date / Time No Known Allergies Allergy Verified 11/25/21 10:35 Review of Systems Sugical H&P ROS: Negative: Constitution, Cardiovascular, Respiratory, Neurological, Psychiatric, Hem-Onc, Allergic/Immunologic, Gastrointestinal, Genitourinary, Musculoskeletal, Integumentary, Endocrine and Eyes/Ears/Nose/Throat Exam Surgical H&P Exam: Normal: HEENT, Normal: Heart, Normal: Lungs, Normal: Extremities, Normal: Abdomen and Normal: Skin and Significant Findings: Neurological (wheel chair bound ) Plan Diagnosis/Plan: Unchanged I have reviewed the history and physical and performed a pertinent physical examination on my patient. No changes have occurred unless specified.
[2022-03-27 10:20] VITALS: BP 188/78; PULSE 74; RESP 18; TEMP 36.9; O2SAT 97; BMI 32.1
--- NOTE | 2022-03-27 10:28 | HO.ANESPROP2 ---
Documented by User: Keith Ward MD 03/27/22 10:43 HPI - Anesthesia Eval Consult details Narrative: 71 M for colonoscopy [facility] Active Problems Active Problems: All Active Problems (Updated 03/25/22 @ 11:12 by Chayito Hopper RN) Erika rash of groin (Acute) Left ear pain (Acute) Right knee pain (Acute) Close exposure to 2019 novel coronavirus (Acute) Adult general medical exam (Acute) UTI (urinary tract infection) (Acute) Low oxygen saturation (Acute) Hallucinations (Acute) Pressure ulcer of foot, stage 1 (Acute) Ulcer (Acute) Diarrhea (Acute) Constipation (Acute) Alcohol abuse (Acute) Anemia (Acute) Confusion (Acute) Daytime sleepiness (Acute) GI bleed (Acute) Colon polyp (Acute) Snoring (Acute) Witnessed apneic spells (Acute) Hypersomnia (Acute) Leg cramps, sleep related (Acute) Hematuria (Acute) Bilateral lower extremity pain (Acute) CHF (congestive heart failure) (Acute) Upper GI bleed (Acute) Dyspnea (Acute) Abnormal lung sounds (Acute) Osteoarthritis of right knee (Acute) Indwelling Graff catheter present (Acute) Cloudy urine (Acute) Incontinence of feces (Acute) Hypertension, essential (Acute) Muscle spasms of both lower extremities (Acute) Past Medical History Medical History COPD (chronic obstructive pulmonary disease) CVA (cerebral vascular accident) Diabetes type 2, controlled DVT (deep venous thrombosis) Essential hypertension Hypertension, essential Ileus Incontinence of feces Incontinence of urine Left-sided weakness Muscle spasms of both lower extremities On anticoagulant therapy On beta stefan at home Pressure ulcer, buttock Spastic paralysis Wheelchair bound Family History Family History Mother No problems noted. Father No problems noted. Family history of problems with anesthesia: No Surgical History Surgical History History of cholecystectomy History of esophagogastroduodenoscopy (EGD) Hx of colonoscopy History of Problems with Anesthesia: No Social History Social History Household Members: Other Housing: Other Housing Other:: skilled nursing. Do you presently have visiting nurse or other home services: No Alcohol intake: current Alcohol intake frequency: 0-2 drinks per day Alcohol type: hard liquor Patient Tobacco Use Status: Current everyday Tobacco user Tobacco use type: Cigarette Cigarettes Per Day: 10 e-Cigarette/Vaping Use: Never Used Second Hand Smoke Exposure: Yes Use of substances other than those prescribed or required for medical reasons: No Are you DNR?: No Advance Directives: No Advance Directives Information Provided: Yes service: No Current occupational status: disabled Cognitive needs: Yes (Wheel chair) Hearing needs: No Vision needs: Yes (Glasses) Meds Allergies Allergy/AdvReac Type Severity Reaction Status Date / Time No Known Allergies Allergy Verified 11/25/21 10:35 Active Medications: Current Medications Albuterol Sulfate (Albuterol Sulfate (0.083%) 2.5 Mg/3 Ml Vial.Neb) 2.5 mg INHALE ONCE PRN PRN Reason: Shortness of Breath/Wheezing Lactated Ringer's (Lr) 1,000 mls @ 50 mls/hr IVCONT .Q20H TEO Sodium Biphosphate/Sodium Phosphate (Sodium Phosphate,Hamlin-Dibasic 133 Ml Enema) 133 ml DC ONCE PRN PRN Reason: Consult order Home Medications Medication Instructions Recorded Confirmed Last Taken Type fluoxetine 10 mg capsule 10 mg PO DAILY 07/11/20 03/25/22 Unknown History zinc oxide 40 % topical ointment 1 appl topical 8XD PRN INCONTIENCE 04/09/21 03/25/22 Unknown History ferrous sulfate 325 mg (65 mg 325 mg PO QAM 08/19/21 03/25/22 Unknown History iron) tablet,delayed release tizanidine 4 mg tablet 4 mg PO TID 08/19/21 03/25/22 Unknown History clonazepam 0.5 mg tablet 0.5 mg PO BEDTIME 11/25/21 03/25/22 Unknown History syringe with needle 3 mL 25 x 5/8 #1 ea 11/25/21 Unknown History (BD Luer-Maranda Syringe) acetaminophen 325 mg capsule 650 mg PO TID 03/25/22 03/25/22 Unknown History (Tylenol) atorvastatin 20 mg tablet 1 tab PO DAILY 03/25/22 03/25/22 Unknown History Exam Exam Date and Time: March 27, 2022 1028 Height,Weight and Vital Signs: Height 6 ft 2 in Weight 113.398 kg Assessment and Plan Final Anesthetic Review Family History of Problems with Anesthesia: No History of Problems with Anesthesia: No Documented by User: Mery Davies MD 03/27/22 13:03 [facility] Active Problems Active Problems: All Active Problems (Updated 03/25/22 @ 11:12 by Chayito Hopper RN) Erika rash of groin (Acute) Left ear pain (Acute) Right knee pain (Acute) Close exposure to 2019 novel coronavirus (Acute) Adult general medical exam (Acute) UTI (urinary tract infection) (Acute) Low oxygen saturation (Acute) Hallucinations (Acute) Pressure ulcer of foot, stage 1 (Acute) Ulcer (Acute) Diarrhea (Acute) Constipation (Acute) Alcohol abuse (Acute) Anemia (Acute) Confusion (Acute) Daytime sleepiness (Acute) GI bleed (Acute) Colon polyp (Acute) Snoring (Acute) Witnessed apneic spells (Acute) Hypersomnia (Acute) Leg cramps, sleep related (Acute) Hematuria (Acute) Bilateral lower extremity pain (Acute) CHF (congestive heart failure) (Acute) Upper GI bleed (Acute) Dyspnea (Acute) Abnormal lung sounds (Acute) Osteoarthritis of right knee (Acute) Indwelling Graff catheter present (Acute) Cloudy urine (Acute) Incontinence oqf feces (Acute) Hypertension, essential (Acute) Muscle spasms of both lower extremities (Acute) Past Medical History Medical History COPD (chronic obstructive pulmonary disease) CVA (cerebral vascular accident) Diabetes type 2, controlled DVT (deep venous thrombosis) Essential hypertension Hypertension, essential Ileus Incontinence of feces Incontinence of urine Left-sided weakness Muscle spasms of both lower extremities On anticoagulant therapy On beta stefan at home Pressure ulcer, buttock Spastic paralysis Wheelchair bound Family History Family History Mother No problems noted. Father No problems noted. Surgical History Surgical History History of cholecystectomy History of esophagogastroduodenoscopy (EGD) Hx of colonoscopy Social History Social History Household Members: Other Housing: Other Housing Other:: skilled nursing. Do you presently have visiting nurse or other home services: No Alcohol intake: current Alcohol intake frequency: 0-2 drinks per day Alcohol type: hard liquor Patient Tobacco Use Status: Current everyday Tobacco user Tobacco use type: Cigarette Cigarettes Per Day: 10 e-Cigarette/Vaping Use: Never Used Second Hand Smoke Exposure: Yes Use of substances other than those prescribed or required for medical reasons: No Are you DNR?: No Advance Directives: No Advance Directives Information Provided: Yes service: No Current occupational status: disabled Cognitive needs: Yes (Wheel chair) Hearing needs: No Vision needs: Yes (Glasses) Meds Allergies Allergy/AdvReac Type Severity Reaction Status Date / Time No Known Allergies Allergy Verified 11/25/21 10:35 Home Medications Medication Instructions Recorded Confirmed Last Taken Type fluoxetine 10 mg capsule 10 mg PO DAILY 07/11/20 03/25/22 Unknown History zinc oxide 40 % topical ointment 1 appl topical 8XD PRN INCONTIENCE 04/09/21 03/25/22 Unknown History ferrous sulfate 325 mg (65 mg 325 mg PO QAM 08/19/21 03/25/22 Unknown History iron) tablet,delayed release tizanidine 4 mg tablet 4 mg PO TID 08/19/21 03/25/22 Unknown History clonazepam 0.5 mg tablet 0.5 mg PO BEDTIME 11/25/21 03/25/22 Unknown History syringe with needle 3 mL 25 x 5/8 #1 ea 11/25/21 Unknown History (BD Luer-Maranda Syringe) acetaminophen 325 mg capsule 650 mg PO TID 03/25/22 03/25/22 Unknown History (Tylenol) atorvastatin 20 mg tablet 1 tab PO DAILY 03/25/22 03/25/22 Unknown History
[2022-03-27 10:29] VITALS: BMI 32.1
[2022-03-27 10:46] LABS: Hematocrit 35.3 % (42.0-52.0); Hemoglobin 10.2 g/dl (14.0-18.0); Mean Corpuscular HGB Conc 28.9 g/dl (31.0-36.0); Mean Corpuscular Hemoglobin 20.6 pg (27.0-33.0); Mean Corpuscular Volume 71.5 fL (80.0-98.0); Mean Platelet Volume 9.9 fL (9.4-12.4); Platelet Count 374 X10*3/uL (160-400); Red Blood Count 4.94 X10*6/uL (4.60-5.80); Red Cell Distribution Width 19.9 % (11.0-16.0); White Blood Count 6.8 X10*3/uL (4.8-10.8)
[2022-03-27 11:01] LABS: Anion Gap 16 (12-20); Blood Urea Nitrogen 11 mg/dL (9-16); Carbon Dioxide 25 mmol/L (22-29); Chloride 103 mmol/L (96-108); Creatinine Clr Calc Pharmacy 150.5; Estimated Glomerular Filt Rate > 60; Glucose Fasting 88 mg/dL (60-99); Potassium 4.1 mmol/L (3.3-5.1); Sodium 140 mmol/L (135-145)
[2022-03-27 11:25] LABS: Glucose, Whole Blood 80 mg/dL (60-115)
[2022-03-27] MEDS: Sodium Phosphate,Mono-Dibasic 133 ML ENEMA PR ×2 (11:40→11:50)
[2022-03-27] MEDS: Lactated Ringers 1,000 ML 50 ML IVCONT (12:47)
--- NOTE | 2022-03-27 13:09 | P.CONAN_ITS ---
[facility] Active Problems Active Problems: All Active Problems (Updated 03/25/22 @ 11:12 by Chayito Hopper RN) Erika rash of groin (Acute) Left ear pain (Acute) Right knee pain (Acute) Close exposure to 2019 novel coronavirus (Acute) Adult general medical exam (Acute) UTI (urinary tract infection) (Acute) Low oxygen saturation (Acute) Hallucinations (Acute) Pressure ulcer of foot, stage 1 (Acute) Ulcer (Acute) Diarrhea (Acute) Constipation (Acute) Alcohol abuse (Acute) Anemia (Acute) Confusion (Acute) Daytime sleepiness (Acute) GI bleed (Acute) Colon polyp (Acute) Snoring (Acute) Witnessed apneic spells (Acute) Hypersomnia (Acute) Leg cramps, sleep related (Acute) Hematuria (Acute) Bilateral lower extremity pain (Acute) CHF (congestive heart failure) (Acute) Upper GI bleed (Acute) Dyspnea (Acute) Abnormal lung sounds (Acute) Osteoarthritis of right knee (Acute) Indwelling Graff catheter present (Acute) Cloudy urine (Acute) Incontinence of feces (Acute) Hypertension, essential (Acute) Muscle spasms of both lower extremities (Acute) Past Medical History Medical History COPD (chronic obstructive pulmonary disease) CVA (cerebral vascular accident) Diabetes type 2, controlled DVT (deep venous thrombosis) Essential hypertension Hypertension, essential Ileus Incontinence of feces Incontinence of urine Left-sided weakness Muscle spasms of both lower extremities On anticoagulant therapy On beta stefan at home Pressure ulcer, buttock Spastic paralysis Wheelchair bound Family History Family History Mother No problems noted. Father No problems noted. Surgical History Surgical History History of cholecystectomy History of esophagogastroduodenoscopy (EGD) Hx of colonoscopy History of Problems with Anesthesia: No Social History Social History Household Members: Other Housing: Other Housing Other:: skilled nursing. Do you presently have visiting nurse or other home services: No Alcohol intake: current Alcohol intake frequency: 0-2 drinks per day Alcohol type: hard liquor Patient Tobacco Use Status: Current everyday Tobacco user Tobacco use type: Cigarette Cigarettes Per Day: 10 e-Cigarette/Vaping Use: Never Used Second Hand Smoke Exposure: Yes Use of substances other than those prescribed or required for medical reasons: No Are you DNR?: No Advance Directives: No Advance Directives Information Provided: Yes service: No Current occupational status: disabled Cognitive needs: Yes (Wheel chair) Hearing needs: No Vision needs: Yes (Glasses) Meds Allergies Allergy/AdvReac Type Severity Reaction Status Date / Time No Known Allergies Allergy Verified 11/25/21 10:35 Active Medications: Current Medications Albuterol Sulfate (Albuterol Sulfate (0.083%) 2.5 Mg/3 Ml Vial.Neb) 2.5 mg INHALE ONCE PRN PRN Reason: Shortness of Breath/Wheezing Lactated Ringer's (Lr) 1,000 mls @ 50 mls/hr IVCONT .Q20H TEO Last Admin: 03/27/22 12:47 Dose: 50 mls/hr Sodium Biphosphate/Sodium Phosphate (Sodium Phosphate,[place]-Dibasic 133 Ml Enema) 133 ml HI ONCE PRN PRN Reason: Consult order Last Admin: 03/27/22 11:50 Dose: 133 ml Home Medications Medication Instructions Recorded Confirmed Last Taken Type fluoxetine 10 mg capsule 10 mg PO DAILY 07/11/20 03/25/22 Unknown History zinc oxide 40 % topical ointment 1 appl topical 8XD PRN INCONTIENCE 04/09/21 03/25/22 Unknown History ferrous sulfate 325 mg (65 mg 325 mg PO QAM 08/19/21 03/25/22 Unknown History iron) tablet,delayed release tizanidine 4 mg tablet 4 mg PO TID 08/19/21 03/25/22 Unknown History clonazepam 0.5 mg tablet 0.5 mg PO BEDTIME 11/25/21 03/25/22 Unknown History syringe with needle 3 mL 25 x 5/8 #1 ea 11/25/21 Unknown History (BD Luer-Maranda Syringe) acetaminophen 325 mg capsule 650 mg PO TID 03/25/22 03/25/22 Unknown History (Tylenol) atorvastatin 20 mg tablet 1 tab PO DAILY 03/25/22 03/25/22 Unknown History Exam Exam Date and Time: March 27, 2022 1309 Height,Weight and Vital Signs: Height 6 ft 2 in Weight 113.398 kg Last Vital Signs Temp 98.5 F 03/27/22 10:20 Pulse 74 03/27/22 10:20 Resp 18 03/27/22 10:20 BP 188/78 H 03/27/22 10:20 Pulse Ox 97 03/27/22 10:20 O2 Del Method 03/27/22 10:20 Pertinent Lab Results Pertinent Lab Results: Laboratory Tests 03/27/22 03/27/22 03/27/22 10:34 10:39 10:39 WBC 6.8 RBC 4.94 Hgb 10.2 L D Hct 35.3 L D MCV 71.5 L MCH 20.6 L MCHC 28.9 L RDW 19.9 H Plt Count 374 MPV 9.9 Absolute Nucleated RBC 0.000 Nucleated RBC % (auto) 0.0 Sodium 140 Potassium 4.1 Chloride 103 Carbon Dioxide 25 Anion Gap 16 BUN 11 D Creatinine 0.62 Estim Creat Clear Calc 150.5 Estimated GFR > 60 POC Glucose 80 Fasting Glucose 88 Calcium 9.0 Airway Mallampati Class: II (Edentulous) TM Dist: >3cm Neck ROM: Full Loose/Missing/Broken Teeth: Yes, Upper and Lower Heart: RRR Lungs: CTA Assessment and Plan Assessment Anesthesia Assessment: Anesthesia Plan Discussed and Chart Reviewed Final Anesthetic Review History of Problems with Anesthesia: No NPO: Yes ASA Class: III Final Preanesthetic Review: Meds/Allgs Chart Reviewed, Consent Obtained/Reviewed and Anes Risks/Benef Reviewed Patient Risk: Intermediate Procedure Risk: Low Anesthetic Plan Anesthetic Plan: MAC: Disposition: Standard PACU
--- NOTE | 2022-03-27 14:02 | P.OP_ITS ---
Operative Note Operative Note Date of Service: 03/27/22 Narrative: Operative Information Procedure Description: Colonoscopy Indication: hx of polyps Anesthesia: MAC COLONOSCOPY Instrument: Olympus variable stiffness adult scope 190L Colonoscopy Monitoring: Vital signs and clinical assessment, continuous EKG monitoring, Pulse oximetry, Carbon Dioxide monitoring and blood pressure monitoring were done throughout the procedure. Colon withdrawal time was 16 minutes. Procedure: The patient was placed in the left lateral decubitis position and pre-procedure medications were administered. After a digital rectal examination of the ano-rectum, the video colonoscope was inserted into the rectum and advanced through the colon to the cecum/TI. The colonoscope was slowly withdrawn in a retrograde panoramic fashion and the colon mucosa was carefully examined including a retroflexed view of the rectum. Findings and interventions are described below. Procedure Difficulty: moderate due to redundant colon and poor prep Findings: melanosis coli noted Terminal Ileum-normal Cecum:normal Ascending Colon: normal Transverse Colon - x 2 sessile polyps measuring 12-14 mm, one was raised with ORISE. Both removed with cold snare Descending Colon: 9-10 mm sessile polyp removed with cold snare Sigmoid Colon: moderate diverticulosis Rectum: Retroflexion with small internal hemorrhoids, grade I Anorectum - normal Colon preparation: [place] Bowel Preparation Scale Right colon; 1 Transverse colon: 1-2 Left colon; 1-2 (0 = Unprepared colon segment with mucosa not seen due to solid stool that cannot be cleared. 1 = Portion of mucosa of the colon segment seen, but other areas of the colon segment not well seen due to staining, residual stool and/or opaque liquid. 2 = Minor amount of residual staining, small fragments of stool and/or opaque liquid, but mucosa of colon segment seen well. 3 = Entire mucosa of colon segment seen well with no residual staining, small fragments of stool or opaque liquid) Impression and Post Procedure Diagnosis: polyps internal hemorrhoids diverticular disease melanosis coli Plan: High fiber diet leaflet Avoid straining at stool, epsom salts and sitz bath, anusol supps or cream Repeat Colonoscopy in 1-2 years or earlier if clinically indicated Above findings were reviewed with the patient and relevant handouts were provided if indicated.
[2022-03-27 14:08] VITALS: BP 135/66; PULSE 90; RESP 16; TEMP 36.7; O2SAT 98
[2022-03-27 14:23] VITALS: BP 141/67; PULSE 78; RESP 16; TEMP 36.7; O2SAT 98
== END 2022-03-27 15:07 | disposition home or self-care (01) ==
PROVIDERS: Anesthesiology; Visit Provider Internal Medicine Gastroenterology
PROC: 0DJD8ZZ Inspection of Lower Intestinal Tract, Via Natural or Artificial Opening Endoscopic (ICD-10-PCS; CPT 45378; principal; 2022-03-27 11:00)
DX: Z12.11 Encounter for screening for malignant neoplasm of colon (principal); Z86.010 Personal history of colon polyps; D12.3 Benign neoplasm of transverse colon; D12.4 Benign neoplasm of descending colon; K57.30 Diverticulosis of large intestine without perforation or abscess without bleeding; K64.0 First degree hemorrhoids; K63.89 Other specified diseases of intestine; K56.7 Ileus, unspecified; R15.9 Full incontinence of feces; R32 Unspecified urinary incontinence; I69.954 Hemiplegia and hemiparesis following unspecified cerebrovascular disease affecting left non-dominant side; I82.409 Acute embolism and thrombosis of unspecified deep veins of unspecified lower extremity; M62.838 Other muscle spasm; I10 Essential (primary) hypertension; E11.9 Type 2 diabetes mellitus without complications; J44.9 Chronic obstructive pulmonary disease, unspecified; F17.210 Nicotine dependence, cigarettes, uncomplicated; Z99.3 Dependence on wheelchair; Z79.01 Long term (current) use of anticoagulants; Z79.899 Other long term (current) drug therapy
CPT/HCPCS: 45385; 45381; 36415; 80048; 82947; 85027; 88305

== ENCOUNTER → 2022-04-11 11:00 | Outpatient (BNVA) | payer MEDICARE, SELFPAY | PROVIDERS: Visit Provider Internal Medicine Gastroenterology | DX: D13.9 Benign neoplasm of ill-defined sites within the digestive system (principal); D50.9 Iron deficiency anemia, unspecified; Z79.01 Long term (current) use of anticoagulants | CPT/HCPCS: Q3014 ==

== ENCOUNTER 2025-01-18 13:51 | Outpatient (AMB) | payer MEDICARE, SELFPAY ==
[2025-01-18 13:58] VITALS: BP 118/62; PULSE 73
--- NOTE | 2025-01-18 13:58 | A.OFFVIS_ITS ---
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/ sob (urgent) Allergies No Known Allergies Allergy (Verified 11/25/21 10:35) Medication List - Last Reconciled 01/18/25 by Austin May MD acetaminophen (Tylenol) 650 mg PO TID apixaban (Eliquis) 5 mg PO BID 30 days atorvastatin 1 tab PO DAILY budesonide-formoterol 160-4.5 mcg/actuation (Symbicort) 2 puffs PO BID 30 days carbamide peroxide 6.5% 5 drps otic (ears) DAILY PRN 4 days clonazepam (Klonopin) 1 mg PO BEDTIME clotrimazole 1% 1 appl topical BID 2 weeks cyanocobalamin (vitamin B-12) 1,000 mcg IM Q4W 1 month diclofenac sodium 1% (Arthritis Pain (diclofenac)) 4 grams topical BID 30 days docusate sodium (Colace) 100 mg PO BID 90 days ferrous sulfate 325 mg PO QAM fluoxetine 10 mg PO DAILY folic acid 1 mg PO DAILY furosemide 40 mg PO DAILY glycerin (adult) (Fleet Glycerin (Adult) rectal suppository) 1 supp [place] DAILY PRN guaifenesin (Cough Syrup) 200 mg (10 mL) PO Q6H PRN ipratropium-albuterol 0.5 mg-3 mg(2.5 mg base)/3 mL mL inhalation lidocaine 5% 1 patch topical DAILY 30 days losartan 100 mg PO DAILY magnesium hydroxide (Milk of Magnesia) 30 mL PO DAILY PRN menthol 0.8% (Gold Conte Medicated Body) apply to groin topically 2 times a day; metoprolol succinate ER 50 mg PO DAILY 90 days miscellaneous medical supply extra large briefs miscellaneous; nitrofurantoin macrocrystal 100 mg PO Q12H 10 days pantoprazole 40 mg PO BID 30 days peg 3350-electrolytes 236-22.74-6.74 -5.86 gram (GaviLyte-G) 4,000 mL PO DIRECTED 1 day polyethylene glycol 3350 17 grams PO DAILY 30 days pregabalin 200 mg PO BID sennosides (senna) 17.2 mg (2 x 8.6 mg) PO BEDTIME sodium phosphates 19-7 gram/118 mL (Fleet Enema) 118 mL WY ONCE sodium,potassium,mag sulfates 17.5-3.13-1.6 gram (Suprep Bowel Prep Kit) DILUTE; drink 1/2 at 6-8 pm and half at 11 PM- 1AM syringe with needle (indidebt Luer Slip Syringe-Needle) As directed syringe with needle (BD Luer-Maranda Syringe) As directed tamsulosin (Flomax) 0.4 mg PO BEDTIME TENS units As directed and use PRN up to 4x per day thiamine HCl (vitamin B1) 100 mg PO DAILY 90 days tizanidine 4 mg PO TID zinc oxide 40% 1 appl topical 8XD PRN HPI Comments Details: Randal is here for consultation regarding congestive heart failure. He is accompanied by staff from his [facility]. He arrives in a motorized wheelchair. It appears that he really has no mobility and needs a vaughn lift for transfers. He denies any prior history of coronary disease or myocardial infarction or cardiomyopathy. Per documentation, he has been admitted to [facility] with the congestive heart failure and underwent an echocardiogram that showed diastolic dysfunction but preserved LVEF. He is on diuretics. He has got many comorbidities. Apparently, he has had some shortness of breath around the time of the heart failure diagnosis but otherwise, he states he feels well. He is denying any complaints like active shortness of breath or angina or in fact anything else of cardiac nature. [facility] Medical History On anticoagulant therapy On beta stefan at home Ileus Muscle spasms of both lower extremities DVT (deep venous thrombosis) Pressure ulcer, buttock COPD (chronic obstructive pulmonary disease) Essential hypertension Wheelchair bound Hypertension, essential Diabetes type 2, controlled Incontinence of feces Incontinence of urine Spastic paralysis Left-sided weakness CVA (cerebral vascular accident) Surgical History History of cholecystectomy History of esophagogastroduodenoscopy (EGD) Hx of colonoscopy Family History Mother No problems noted. Father No problems noted. Social History Household Members: Other Housing: Other Housing Other:: senior living. Do you presently have visiting nurse or other home services: No Alcohol intake: current Alcohol intake frequency: 0-2 drinks per day Alcohol type: hard liquor Patient Tobacco Use Status: Current everyday Tobacco user Tobacco use type: Cigarette Cigarettes Per Day: 10 e-Cigarette/Vaping Use: Never Used Second Hand Smoke Exposure: Yes service: No Current occupational status: disabled Cognitive needs: Yes (Wheel chair) Hearing needs: No Vision needs: Yes (Glasses) Review of Systems Const Denies weakness ENT Denies dizziness Card Denies chest pain, Denies chest pain with activity, Denies syncope, Denies rapid heart rate, Denies pedal edema, Denies edema, Denies leg edema, Denies lightheadedness, Denies palpitations, Denies dyspnea, Denies dyspnea on exertion and Denies orthopnea Resp Denies cough, Denies dyspnea and Denies dyspnea on exertion GI Denies hematochezia and Denies change in stool character Musc Denies abnormal gait, Denies muscle cramps, Denies muscle weakness, Denies numbness, Denies radiating pain into limb and Denies tingling Neuro Denies abnormal gait, Denies dizziness, Denies syncope, Denies numbness, Denies tingling and Denies weakness Endo Denies palpitations Physical Exam Vital Signs: Last Vital Signs Pulse 73 01/18/25 13:58 BP 118/62 01/18/25 13:58 Const General: comfortable and no acute distress Orientation/consciousness: patient oriented x3 HEENT Other: Unremarkable Head: Yes normal to inspection Neck Neck: Yes normal visual inspection Chest Chest palpation & inspection: normal inspection of the chest Resp Auscultation: clear to auscultation bilaterally Cardio Palpation: normal PMI Heart sounds: S1 normal heart sound present, S2 normal heart sound present, no gallops, no murmurs and no rubs GI Palpation (GI): Soft to palpation Back/Spine/Pelvis Other: unremarkable Skin General skin exam: no rashes or lesions noted Neuro General: patient oriented x3 Extrem Other: Trace edema bilaterally General: Yes normal to inspection Psych Mental Status: mental status grossly normal Office Procedures EKG Details: EKG with underlying sinus rhythm at 73/Min; inferior as well as anterolateral T inversions with downsloping [place] [address]-[id number], Complete Assessment & Plan Assessment & Plan (1) Chronic diastolic (congestive) heart failure: Code(s): I50.32 - Chronic diastolic (congestive) heart failure Category: Medical Plan Echocardiogram from [facility] shows LVEF of 60-65%. Moderate diastolic dysfunction with increased LV pressures. No significant valvular findings. IVC is mildly dilated with poor inspiratory collapse suggestive of elevated right atrial pressures. EKG as described above shows inferior and anterolateral T inversions of unknown duration- we will try to obtain the last EKG from [facility]. He can continue oral diuretics as currently listed. No changes with that. Due to many comorbidities, immobile state and EKG abnormalities and congestive heart failure, we can consider ischemia workup. If feasible, obtain coronary CTA. We discussed about this today. The staff from [facility] state that he has had prior CTs at [facility]. We will follow up after the testing. Orders: Orders CT Cardiac Coronary Angio Today I25.10 - Atherosclerotic heart disease of [place] coronary artery without angina pectoris, I50.32 - Chronic diastolic (congestive) heart failure Basic Metabolic Panel Today I50.32 - Chronic diastolic (congestive) heart fail ure Coding Level of Care Code New Pt Level 4 (97441) Complex EM visit Add On G2211 Diagnoses Chronic diastolic (congestive) heart failure I50.32 CPT Codes EKG - CPT: 05516-[id number], Complete ([id number])
--- OUTSIDE RECORDS SUMMARY | 2025-01-18 14:42 | XMS_ITS | Clinical Summary ---
Author Organization [facility] Facility Address [address] [place] [id number] Care Team Providers Care Senior Hardware Design Engineer Name Role Phone Unavailable Primary Care Provider Unavailabl e Social History Tobacco Use Types Packs/Day Years Used Date Smoking Tobacco: Never Assessed Sex and Gender Information Value Date Recorded Sex Assigned at Not on file Legal Sex Male 4:56 PM EST Gender Identity Not on file Sexual Orientation Not on file Plan of Treatment Health Maintenance Due Date Last Done Comments Colorectal Cancer Screening: Annual FOBT 2001 Colorectal Cancer Screening: Colonoscopy 2001 Colorectal Cancer Screening: Sigmoidoscopy 2001 Influenza Vaccine (#1) 2025 05/21/2006 Pneumococcal Vaccine: 50+ Years (3 of 3 - PCV20 or PCV21) 03/21/2025 03/21/2020, 01/15/2013, 09/28/2009 Pneumococcal Vaccine: Peds ( 0 to 5 Years) and At-Risk Patients (6 to 49 Years) Discontinued 03/21/2020, 01/15/2013, 09/28/2009 Hepatitis B Vaccine Aged Out No longe r eligible based on patient's age to complete this topic Insurance [employer] MCR Adv PPO ([id number]) [employer] MCR Adv PPO ([id number])
== END 2025-01-18 14:58 | disposition home or self-care (01) ==
PROVIDERS: PCP Family Medicine; Visit Provider Internal Medicine
DX: I50.32 Chronic diastolic (congestive) heart failure (principal)
CPT/HCPCS: 93010; 99204; G2211

== ENCOUNTER → 2025-01-18 13:51 | Outpatient (BNVA) | payer MEDICARE, SELFPAY | PROVIDERS: PCP Family Medicine; Visit Provider Internal Medicine | DX: I11.0 Hypertensive heart disease with heart failure (principal); I50.32 Chronic diastolic (congestive) heart failure; R94.31 Abnormal electrocardiogram [ECG] [EKG] | CPT/HCPCS: 93005; 99202 ==

== ENCOUNTER 2025-04-07 10:34 | Outpatient (REF) | payer MEDICARE, SELFPAY ==
--- OUTSIDE RECORDS SUMMARY | 2025-04-07 11:35 | XMS_ITS | Encounter Summary ---
Author Organization [facility] Address [address] [address] Phone Care Team Providers Care Appliance Adjuster Name Role Phone Rachel Rush PA-C Unavailable Jus Diaz MD Unavailable Bianka Del Valle MD Primary Care Provider [phone] Reason for Visit * Reason Comments Medication Refill Encounter Details Date Type Department Care Team (Late st Contact Info) Description 03/30/2025 Refill [facility] Pulmonary, Allergy and Critical Care Medicine [address] [place] [address] Sin Troncoso MD [address] [place], [place] [phone] Medication Refill Social History Tobacco Use Types Packs/Day Years Used Date Smoking Tobacco: Every Day Cigarettes 1 0.3 Started: 01/03/2025 Smokeless Tobacco: Never Comments:pack every 2 days Alcohol Use Standard Drinks/Week Comments Yes 7 (1 standard drink = 0.6 oz pur e alcohol) 1 nip daily Education Answer Date Recorded Are you interested in more education? Not on kwadwo e 08/26/2023 Are you concerned about learning? Not on file 08/26/2023 No 08/26/2023 No 08/26/2023 Digital Access Answer Date Recorded No 08/26/2023 No 08/26/2023 Reliable internet access at home? Not on file 08/26/2023 Device with a working camera? Not on file Intimate Partner Violence Answer Date R ecorded Are you denied basic needs s uch as food, clothing, or medical care? No 11/14/2024 In the past 12 months have y ou been in a relationship with a person who hurts, threatens, or tries to control you? No 11/14/2024 Are you denied basic needs s uch as food, clothing, or medical care? No 11/14/2024 In the past 12 months have y ou been in a relationship with a person who hurts, threatens, or tries to control you? No 11/14/2024 Sex and Gender Information Value Date Recorded Sex Assigned at Male 12/03/2023 12:07 PM EDT Legal Sex Male 4:17 PM EST Gender Identity Male 12/03/2023 12:07 PM EDT Sexual Orientation Not on file documented as of this encounter Progress Notes * Daja Harris LPN - 03/30/2025 1:19 PM EDT Rx Care Gap Status - Instructions for Clinical Staff (prescriber discretion applies): > Mismatch review guide > No future appt: Please schedule if appropriate. Visit Info Last visit: 03/16/2025 Sin Troncoso MD - Pulmonology [facility] PULM/ALLGY [address] MAIN > Requested f/u: Return in about 6 months (around 09/13/2025). Upcoming visit: None ACTIONS TAKEN BY Daja Harris LPN - Criteria met. Asthma / COPD Inhalers Rx Protocol - ipratropium/albuterol sulfate Criteria met; renew for up to 12 months. Visit in the past 14 months: Yes documented in this encounter Plan of Treatment Upcoming Encounters Date Type Department Care Team (Late st Contact Info) Description 03/16/2025 Procedure Pass [facility], Ct Scan - [address] [address] 04/11/2025 1:00 PM EDT Appointment [facility], Ct Scan - [address] [address] Sin Troncoso MD [address] [place] [phone] [email or web address] documented as of this encounter Visit Diagnoses Diagnosis Asthmatic bronchitis without complication documented in this encounter Care Teams Appliance Adjuster Relationship Specialty Start Date End Date Bianka Del Valle MD [address] [place] [phone] [email or web address] PCP - General Family Medicine 03/15/24 Rachel Rush PA-C [address] [place] [address] Physician Treasury Associate Hematology 08/26/23 Jus Diaz MD [address] [place] [phone] [email or web address] Emergency Medicine 02/12/24 documented as of this encounter Additional Source Comments The information contained in this document represents components of the legal health record. It is not the complete legal health record.[facility]
--- OUTSIDE RECORDS SUMMARY | 2025-04-07 11:35 | XMS_ITS | Encounter Summary ---
Author Organization [facility] Address [address] [facility] [address] [place] [address] Phone Care Team Providers Care Head Loft Worker Name Role Phone Rachel Rush PA-C Unavailable [phone] Jus Diaz MD Unavailable Bianka Del Valle MD Primary Care Provider [phone] Encounter Details Date Type Department Care Team (Late st Contact Info) Description 10/06/2024 Procedure Pass [facility] Endoscopy Admitting Dept Virtual Department [address] [place] [address] Social History Tobacco Use Types Packs/Day Years Used Date Smoking Tobacco: Every Day Cigarettes Smokeless Tobacco: Never Comments:3-5 cigarettes a da y Alcohol Use Standard Drinks/Week Comments Yes 7 [...] as food, clothing, or medical care? No 09/30/2024 In the past 12 months have y ou been in a relationship with a person who hurts, threatens, or tries to control you? No 09/30/2024 Are you denied basic needs s uch as food, clothing, or medical care? No 09/30/2024 In the past 12 months have y ou been in a relationship with a person who hurts, threatens, or tries to control you? No 09/30/2024 Sex and Gender Information Value Date Recorded Sex Assigned at Male 12/03/2023 12:07 PM EDT Legal Sex Male 4:17 PM EST Gender Identity Male 12/03/2023 12:07 PM EDT Sexual Orientation Not on file documented as of this encounter Plan of Treatment Upcoming Encounters Date Type Department Care Team (Late st Contact Info) Description 03/16/2025 Procedure Pass [facility], [address] [address] 04/11/2025 1:00 PM EDT Appointment [address] [address] Sin Troncoso MD [address] [place] [address] [email or web address] documented as of this encounter Visit Diagnoses Not on filedocumented in this encounter Care Teams Head Loft Worker Relationship Specialty Start Date End Date Bianka Del Valle MD [address] [place] [phone] PCP - General Family Medicine 03/15/24 Rachel Rush PA-C [address] [place] [address] Physician Inventory Representative Hematology 08/26/23 Jus Diaz MD [address] [place] [phone] Emergency Medicine 02/12/24 documented as of this encounter Additional Source Comments The information contained in this document represents components of the legal health record. It is not the complete legal health record.[facility]
--- OUTSIDE RECORDS SUMMARY | 2025-04-07 11:35 | XMS_ITS | Encounter Summary ---
Author Organization [facility] Address [address] [employer] [facility] [address] [place] [address] Phone Care Team Providers Care Land Measurer Name Role Phone Rachel Rush PA-C Unavailable [phone] Jus Diaz MD Unavailable Bianka Del Valle MD Primary Care Provider Encounter Details Date Type Department Care Team (Late st Contact Info) Description 11/14/2024 Procedure Pass [facility] Endoscopy Admitting Dept Virtual Department [address] [place] [address] Social History Tobacco Use Types Packs/Day Years [...] st Contact Info) Description 03/16/2025 Procedure Pass [facility], [address] [address] 04/11/2025 1:00 PM EDT Appointment [address] [address] Sin Troncoso MD [address] [place] [address] [email or web address] documented as of this encounter Visit Diagnoses Not on filedocumented in this encounter Care Teams Land Measurer Relationship Specialty Start Date End Date Bianka Del Valle MD [address] [place] [address] PCP - General Family Medicine 03/15/24 Rachel Rush PA-C [address] [place] [phone] [email or web address] Physician Harvest Worker Hematology 08/26/23 Jus Diaz MD [address] [place] [address] Emergency Medicine 02/12/24 documented as of this encounter Additional Source Comments The information contained in this document represents components of the legal health record. It is not the complete legal health record.[facility]
--- OUTSIDE RECORDS SUMMARY | 2025-04-07 11:35 | XMS_ITS | Encounter Summary ---
Author Organization [facility] Address [address] [facility] [address] [place] [address] Phone Care Team Providers Care Juvenile Probation Officer Name Role Phone Rachel Rush PA-C Unavailable [phone] Jus Diaz MD Unavailable [phone] Bianka Del Valle MD Primary Care Provider + [phone] Reason for Referral * Speech Therapy (Within 3 days (urgent)) - New Request Specialty Diagnoses / Procedures Referred By Iza [email or web address] Referred To Contact Speech Pathology Diagnoses Encounter for rehabilitation Bianka Del Valle MD [address] [place] [address] Phone: tel: fax: [email or web address] [facility] [address] [place] [address] Phone: tel: Referral ID Status Reason Start Date Expiration Date V isits Requested Visits Authorized [id number] New Request 04/06/2025 04/06/2026 1 1 Encounter Details Date Type Department Care Team (Latest Contact Info) Description 04/06/2025 Transcribe Orders [facility] [address] [place] [address] Bianka Del Valle MD [address] [place] [address] [email or web address] Encounter for rehabilitation (Primary Dx) Social History Tobacco Use Types Packs/Day Years [...] st Contact Info) Description 03/16/2025 Procedure Pass [facility], [address] [address] 04/11/2025 1:00 PM EDT Appointment [address] [address] Sin Troncoso MD [address] [place] [address] Scheduled Referrals Name Type Priority Associated Diagnoses Orde r Schedule Ambulatory referral to [facility] Speech Language Pathology Outpatient Referral Routine Encounter for rehabilitation Ordered: 04/06/2025 documented as of this encounter Visit Diagnoses Diagnosis Encounter for rehabilitation- Primary documented in this encounter Care Teams Juvenile Probation Officer Relationship Specialty Start Date End Date Bianka Del Valle MD [address] [place] [address] PCP - General Family Medicine 03/15/24 Rachel Rush PA-C [address] [place] [address] Physician Airline Reservationist Hematology 08/26/23 Jus Diaz MD [address] [place] [address] Emergency Medicine 02/12/24 documented as of this encounter Additional Source Comments The information contained in this document represents components of the legal health record. It is not the complete legal health record.[facility]
--- OUTSIDE RECORDS SUMMARY | 2025-04-07 11:35 | XMS_ITS | Encounter Summary ---
Author Organization [facility] Address [address] [employer] [facility] [address] [place] [address] Phone Care Team Providers Care Music Industry Internship Name Role Phone Rachel Rush PA-C Unavailable Jus Diaz MD Unavailable Bianka Del Valle MD Primary Care Provider Encounter Details Date Type Department Care Team (Latest Contact Info) Description 07/14/2024 Transcribe Orders [facility] Laboratory [address] [phone] Milana Espinoza PA-C [address], [address] [place] [address] [email or web address] Anemia, unspecified type (Primary Dx); Fatty liver disease, nonalcoholic Social History Tobacco Use Types Packs/Day Years Used Date Smoking Tobacco: Every Day Cigarettes Smokeless Tobacco: Never Comments:3-5 cigarettes a da y Alcohol Use Standard Drinks/Week Comments Yes 0 (1 standard drink = 0.6 oz pur [...] as food, clothing, or medical care? No 12/03/2023 In the past 12 months have y ou been in a relationship with a person who hurts, threatens, or tries to control you? No 12/03/2023 Are you denied basic needs s uch as food, clothing, or medical care? No 12/03/2023 In the past 12 months have y ou been in a relationship with a person who hurts, threatens, or tries to control you? No 12/03/2023 Sex and Gender Information Value Date Recorded Sex Assigned at Male 12/03/2023 12:07 PM EDT Legal Sex Male 4:17 PM EST Gender Identity Male 12/03/2023 12:07 PM EDT Sexual Orientation Not on file documented as of this encounter Plan of Treatment Upcoming Encounters Date Type Department Care Team (Late st Contact Info) Description 03/16/2025 Procedure Pass [address] [address] 04/11/2025 1:00 PM EDT Appointment [address] [address] Sin Troncoso MD [address] [place] [address] [email or web address] documented as of this encounter Results * (ABNORMAL) Fecal immunochemical test x1 (FIT) (07/23/2024 9:00 AM EST) Immuno Fecal Occult Positive(A ) Negative [facility] Stool (Stool) 07/23/2024 9:0 0 AM EST 07/25/2024 2:24 PM EST us Milana Espinoza PA-C BODY FLUIDS AND STOOLS ORDERABL ES Final Result [address] [address] * Vitamin B12 (07/14/2024 3:48 PM EST) Pathologist [facility] VITAMIN B12 753 232 - 1,245 pg/mL [facility] Blood 07/14/2024 3:48 PM EST 07/14/2024 4:05 PM EST us Milana Espinoza PA-C LAB BLOOD ORDERABLES Final Resu lt [address] [address] * (ABNORMAL) PT-INR (07/14/2024 3:48 PM EST) [facility] PT 15.8(H) 10.2 - 12.9 sec [facility] INR 1.4(H) 0.9 - 1.1 [facility] Comment:Therapeutic range fo r oral Vitamin K antagonists: 2.0-3.5 Blood 07/14/2024 3:48 PM EST 07/14/2024 4:05 PM EST us Milana Espinoza PA-C LAB BLOOD ORDERABLES Final Resu lt [address] [address] * Ferritin (07/14/2024 3:48 PM EST) Pathologist [facility] FERRITIN 344 30 - 400 ug/L [facility] Blood 07/14/2024 3:48 PM EST 07/14/2024 4:05 PM EST us Milana Espinoza PA-C LAB BLOOD ORDERABLES Final Resu lt [address] [address] * (ABNORMAL) Folate (07/14/2024 3:48 PM EST) Pathologist [facility] FOLIC ACID >20.0(H) 4.2 - 19.9 ng/mL [facility] Blood 07/14/2024 3:48 PM EST 07/14/2024 4:05 PM EST Milana Espinoza PA-C LAB BLOOD ORDERABLES Final Resu lt Performing Organization Address City/[facility]/ZIP Co de Phone Number [address] [address] * Iron and iron binding capacity (07/14/2024 3:48 PM EST) Pathologist [facility] IRON 155 45 - 160 ug/dL [facility] IRON BINDING CAPACITY 291 228 - 428 ug/dL [facility] TRANSFERRIN SATURAT. 53 20 - 55 % [facility] Blood 07/14/2024 3:48 PM EST 07/14/2024 4:05 PM EST Milana Espinoza PA-C LAB BLOOD ORDERABLES Final Resu lt Performing Organization Address City/[facility]/ZIP Co de Phone Number [address] [address] * (ABNORMAL) Comprehensive metabolic panel (07/14/2024 3:48 PM EST) Pathologist [facility] SODIUM 142 133 - 146 mmol/L [facility] POTASSIUM 4.0 3.3 - 5.1 mmol/L [facility] CHLORIDE 107 96 - 108 mmol/L [facility] CO2 27 21 - 35 mmol/L [facility] BUN 6 6 - 19 mg/dL [facility] CREATININE 0.40(L) 0.5 - 1.5 mg/dL [facility] GLUCOSE 98 70 - 99 mg/dL [facility] ALBUMIN 3.4(L) 3.9 - 4.8 g/dL [facility] TOTAL PROTEIN 6.4(L) 6.5 - 8.0 g/dL [facility] CALCIUM 8.7 8.4 - 10.3 mg/dL [facility] ALKALINE PHOSPHATASE 70 39 - 117 U/L [facility] TOTAL BILIRUBIN 0.3 0.0 - 1.2 mg/dL [facility] AST 15 0 - 37 U/L [facility] ALT 6 0 - 40 U/L [facility] GLOBULIN 3.0 1 - 4.8 g/dL [facility] EGFR 117 >59 mL/min/1.7 3m2 [facility] Comment:Estimated glomerular filtration rate calculated using the CKD-EPI refit equation. ANION GAP 12 10 - 20 mmol/L [facility] Blood 07/14/2024 3:48 PM EST 07/14/2024 4:05 PM EST us Milana Espinoza PA-C LAB BLOOD ORDERABLES Final Resu lt [address] [address] * (ABNORMAL) CBC (07/14/2024 3:48 PM EST) WBC 5.90 4.00 - 11.00 K/uL [facility] RBC 4.93 4.50 - 5.90 M/uL [facility] HGB 10.9(L) 13.5 - 17.5 g/dL [facility] HCT 37.3(L) 41.0 - 53.0 % [facility] PLT 321 150 - 450 K/uL [facility] MCV 75.7(L) 80.0 - 100.0 fL [facility] MCH 22.1(L) 27.0 - 31.0 pg [facility] MCHC 29.2(L) 32.0 - 36.0 g/dL [facility] RDW 20.8(H) 11.5 - 14.5 % [facility] MPV 11.0 8.4 - 12.0 fL [facility] NRBC 0.00 0.00 /100 WBCs [facility] ABSOLUTE NRBC 0.00 0.00 K/uL [facility] Blood 07/14/2024 3:48 PM EST 07/14/2024 4:05 PM EST us Milana Espinoza PA-C LAB BLOOD ORDERABLES Final Resu lt Performing Organization Address City/[facility]/ZIP Co de Phone Number [address] [address] * AFP (non-maternal specimens) (07/14/2024 3:48 PM EST) AFP (NON-MATERNAL) <1.8 <7.9 ng/mL [facility] Comment: Test Methodology Lauren e801 Patient results determined by assays using different manufacturers or methods may not be comparable. Blood 07/14/2024 3:48 PM EST 07/14/2024 4:05 PM EST Milana Espinoza PA-C LAB BLOOD ORDERABLES Final Resu lt Performing Organization Address City/[facility]/ZIP Co de Phone Number [address] [address] documented in this encounter Visit Diagnoses Diagnosis Anemia, unspecified type- Primary Fatty liver disease, nonalcoholic documented in this encounter Care Teams Music Industry Internship Relationship Specialty Start Date End Date Bianka Del Valle MD [address] [place] [address] [email or web address] PCP - General Family Medicine 03/15/24 Rachel Rush PA-C [address] [place] [phone] [email or web address] Physician Furnace And Wash Equipment Operator Hematology 08/26/23 Jus Diaz MD [address] [place] [address] [email or web address] Emergency Medicine 02/12/24 documented as of this encounter Additional Source Comments The information contained in this document represents components of the legal health record. It is not the complete legal health record.[facility]
--- OUTSIDE RECORDS SUMMARY | 2025-04-07 11:35 | XMS_ITS | Encounter Summary ---
Author Organization [facility] Address [address] [employer] [facility] [address] [place] [address] Phone Care Team Providers Care Street Light Inspector Name Role Phone Bianka Del Valle MD Primary Care Provider Rachel Rush PA-C Unavailable [phone] Jus Diaz MD Unavailable Bianka Del Valle MD Primary Care Provider Encounter Details Date Type Department Care Team (Late st Contact Info) Description 11/16/2023 Procedure Pass [facility] Endoscopy Admitting Dept Virtual Department [address] [place], [place] [phone] Social History Tobacco Use Types Packs/Day Years [...] with a working camera? Not on file Sex and Gender Information Value Date Recorded Sex Assigned at Male 12/03/2023 12:07 PM EDT Legal Sex Male 4:17 PM EST Gender Identity Male 12/03/2023 12:07 PM EDT Sexual Orientation Not on file documented as of this encounter Plan of Treatment Upcoming Encounters Date Type Department Care Team (Late st Contact Info) Description 03/16/2025 Procedure Pass [facility], Ct Scan - [address] [address] 04/11/2025 1:00 PM EDT Appointment [facility], Ct Scan - [address] [address] Sin Troncoso MD [address] [place] [address] [email or web address] documented as of this encounter Visit Diagnoses Not on filedocumented in this encounter Additional Health Concerns Infection Onset Date Last Indicated Resolved Time CoV-Risk 12/03/2023 12/03/2023 12/14/2023 1:24 AM EDT CDiff-Risk 12/03/2023 12/03/2023 12/04/2023 1:00 AM EDT CDiff-Risk 12/10/2023 12/10/2023 12/17/2023 1:21 AM EDT documented as of this encounter Care Teams Street Light Inspector Relationship Specialty Start Date End Date Bianka Del Valle MD PCP - General Family Medicine 08/26/23 03/14/24 Bianka Del Valle MD [address] [place] [address] PCP - General Family Medicine 03/15/24 Rachel Rush PA-C [address] [place] [address] Physician Timber Hewer Hematology 08/26/23 Jus Diaz MD [address] [place] [address] [email or web address] Emergency Medicine 02/12/24 documented as of this encounter Additional Source Comments The information contained in this document represents components of the legal health record. It is not the complete legal health record.[facility]
--- OUTSIDE RECORDS SUMMARY | 2025-04-07 11:35 | XMS_ITS | Encounter Summary ---
Author Organization [facility] Address [address] [place] [address] Phone Care Team Providers Care Ventilation Equipment Tender Name Role Phone Rachel Rush PA-C Unavailable [phone] Jus Diaz MD Unavailable [phone] Bianka Del Valle MD Primary Care Provider Encounter Details Date Type Department Care Team (Late st Contact Info) Description 12/20/2024 Transcribe Orders Virtual Department 30 [place] [address] Gregor Byrd MD [address] [place] [address] [phone] [email or web address] Social History Tobacco Use Types Packs/Day Years [...] st Contact Info) Description 03/16/2025 Procedure Pass [address] [address] 04/11/2025 1:00 PM EDT Appointment [address] [address] Sin Troncoso MD [address] [place] [address] [email or web address] documented as of this encounter Visit Diagnoses Not on filedocumented in this encounter Care Teams Ventilation Equipment Tender Relationship Specialty Start Date End Date Bianka Del Valle MD [address] [place] [address] PCP - General Family Medicine 03/15/24 Rachel Rush PA-C [address] [place] [phone] [email or web address] Physician Chief Electrician Hematology 08/26/23 Jus Diaz MD [address] [place] [address] [email or web address] Emergency Medicine 02/12/24 documented as of this encounter Additional Source Comments The information contained in this document represents components of the legal health record. It is not the complete legal health record.[facility]
--- OUTSIDE RECORDS SUMMARY | 2025-04-07 11:35 | XMS_ITS | Clinical Summary ---
Author Organization [facility] Address [address] [place] [address] Care Team Providers Care Cell Changer Name Role Phone Unavailable Primary Care Provider [...] this topic Insurance [employer]na MCR Adv PPO ([phone]) [employer] MCR Adv PPO ([phone])
--- OUTSIDE RECORDS SUMMARY | 2025-04-07 11:36 | XMS_ITS ---
Author Name [facility] Organization Unknown Care Team Organization Name Specialty Phone Email Start Date End Da te [facility] EILEEN REICH Primary Care 12/12/2022 [facility] Teddy Shelton Primary Care 05/13/20222023
--- OUTSIDE RECORDS SUMMARY | 2025-04-07 11:36 | XMS_ITS | Encounter Summary ---
Author Organization [facility] Address [address] [employer] [facility] [address] [place] [address] Phone Care Team Providers Care Tax Professional Name Role Phone Bianka Del Valle MD Primary Care Provider Rachel Rush PA-C Unavailable Jus Diaz MD Unavailable Bianka Del Valle MD Primary Care Provider Encounter Details Date Type Department Care Team (Latest Contact Info) Description 12/10/2023 Transcribe Orders Virtual Department 30 [place] [address] Milana Espinoza PA-C 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 No visualized focal hepatic lesion. Narrative 12/23/2023 5:25 AM EDT US ABDOMEN LIMITED RIGHT UPPER QUADRANT Referring clinician's provided indication for this examination in Epic: Outside Radiology Order; Anemia; VARICES TECHNIQUE: US Abdominal limited right upper quadrant. COMPARISON: None FINDINGS: Technically suboptimal examination due to limits in patient positioning. Liver: Diffusely hyperechogenic parenchyma with moderate to severe beam attenuation. No focal lesion identified. Main Portal Vein: Patent with normal direction of flow. Gallbladder: Cholecystectomy. Biliary: No intrahepatic or extrahepatic biliary ductal dilatation. The common bile duct measures 3 mm. Procedure Note Praful Lentz MD - 12/23/2023 US ABDOMEN LIMITED RIGHT UPPER QUADRANT Referring clinician's provided indication for this examination in Epic:Outside Radiology Order; Anemia; VARICES TECHNIQUE: US Abdominal limited right upper quadrant. COMPARISON: None FINDINGS: Technically suboptimal examination due to limits in patient positioning. Liver: Diffusely hyperechogenic parenchyma with moderate to severe beamattenuation. No focal lesion identified. Main Portal Vein: Patent with normal direction of flow. Gallbladder: Cholecystectomy. Biliary: No intrahepatic or extrahepatic biliary ductal dilatation. The common bile duct measures 3 mm. IMPRESSION: Hyperechogenic liver parenchyma, likely representing steatosis. No visualized focal hepatic lesion. 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 documented in this encounter Additional Health Concerns Infection Onset Date Last Indicated Resolved Time CoV-Risk 12/03/2023 12/03/2023 12/14/2023 1:24 AM EDT CDiff-Risk 12/10/2023 12/10/2023 12/17/2023 1:21 AM EDT documented as of this encounter Care Teams Tax Professional Relationship Specialty Start Date End Date Bianka Del Valle MD [email or web address] PCP - General Family Medicine 08/26/23 03/14/24 Bianka Del Valle MD [address] [place] [address] [email or web address] PCP - General Family Medicine 03/15/24 Rachel Rush PA-C [address] [place] [address] [email or web address] Physician Cracker Off Hematology 08/26/23 Jus Diaz MD [address] [place] [address] [email or web address] Emergency Medicine 02/12/24 documented as of this encounter Additional Source Comments The information contained in this document represents components of the legal health record. It is not the complete legal health record.[facility]
--- OUTSIDE RECORDS SUMMARY | 2025-04-07 11:36 | XMS_ITS | Encounter Summary ---
Author Organization [facility] Address [address] [employer] [facility] [address] [place] [address] Phone Care Team Providers Care Scrap Hooker Name Role Phone Bianka Del Valle MD Primary Care Provider Rachel Rush PA-C Unavailable [phone] Jus Diaz MD Unavailable [phone] Bianka Del Valle MD Primary Care Provider Encounter Details Date Type Department Care Team (Late st Contact Info) Description 12/03/2023 Procedure Pass [facility], Ct Scan - [address] [phone] Social History Tobacco Use Types Packs/Day Years [...] on file documented as of this encounter Functional Status * Calculated C-SSRS Risk Score (Lifetime/Recent) Answer Date of Assessment Author No Risk Indicated 12/03/2023 12:07 PM EDT Karin Snowden RN * [place]ball Suicide Severity Rating Scale (Screener/Recent Self-Report) Question Answer Date of Assessment Author 1. Wish to be (Past 1 Month) No 024 12:07 PM EDT Karin Akhtar RN 2. Non-Specific Active Suici paras Thoughts (Past 1 Month) No 12/03/2023 12:07 PM EDT Lorne Akhtar RN 6. Suicidal Behavior (Lifetime) No 12:07 PM EDT Karin Akhtar, DESTINEE documented as of this encounter Plan of Treatment Upcoming Encounters Date Type Department Care Team (Late st Contact Info) Description 03/16/2025 Procedure Pass [address] [address] 04/11/2025 1:00 PM EDT Appointment [address] [address] Sin Troncoso MD [address] [place] [address] [email or web address] documented as of this encounter Visit Diagnoses Not on filedocumented in this encounter Additional Health Concerns Infection Onset Date Last Indicated Resolved Time CoV-Risk 12/03/2023 12/03/2023 12/14/2023 1:24 AM EDT CDiff-Risk 12/03/2023 12/03/2023 12/04/2023 1:00 AM EDT CDiff-Risk 12/10/2023 12/10/2023 12/17/2023 1:21 AM EDT documented as of this encounter Care Teams Scrap Hooker Relationship Specialty Start Date End Date Bianka Del Valle MD PCP - General Family Medicine 08/26/23 03/14/24 Bianka Del Valle MD [address] [place] [address] PCP - General Family Medicine 03/15/24 Rachel Rush PA-C [address] [place] [address] Physician Emergency Physician Hematology 08/26/23 Jus Diaz MD [address] [place] [address] Emergency Medicine 02/12/24 documented as of this encounter Additional Source Comments The information contained in this document represents components of the legal health record. It is not the complete legal health record.[facility]
--- OUTSIDE RECORDS SUMMARY | 2025-04-07 11:36 | XMS_ITS | Clinical Summary ---
Author Organization [facility] Address [address] [facility] [address] [place] [phone] Phone Care Team Providers Care Rn Lvn Name Role Phone Rachel Rush PA-C Unavailable [phone] Jus Diaz MD Unavailable [phone] Bianka Del Valle MD Primary Care Provider Allergies No known active allergies Medications acetaminophen (TYLENOL) 650 MG CR tablet Take 650 mg by mouth 3 (three) times a day. Active ELIQUIS 5 mg tablet Take 5 mg by mouth 2 (two) times a day. Active ascorbic acid, vitamin C, (VITAMIN C) 1000 MG tablet Take 1,000 mg by mouth 2 (two) times a day. Active atorvastatin (LIPITOR) 20 MG tablet Take 20 mg by mouth daily. Active BREYNA 160-4.5 mcg/actuation inhaler Inhale 2 puffs into the lungs 2 (two) times a day. Active VITAMIN D3 25 mcg (1,000 unit) capsule Take 1,000 Units by mouth daily. Active clonazePAM (KLONOPIN) 1 MG tablet Take 1 mg by mouth nightly at bedtime. Active cyanocobalamin (VITAMIN B-12) 1,000 mcg/mL injection Inject 1,000 mcg into the muscle every 30 (thirty) days. Active FEROSUL 325 mg (65 mg iron) tablet Take 325 mg by mouth every other day. Active FLUoxetine (PROZAC) 10 MG capsule Take 10 mg by mouth daily. Active folic acid (FOLVITE) 1 MG tablet Take 1 mg by mouth daily. Active losartan (COZAAR) 100 MG tablet Take 100 mg by mouth daily. Active metoprolol succinate (TOPROL-XL) 50 MG 24 hr tablet Take 50 mg by mouth daily. Active pantoprazole (PROTONIX) 40 MG tablet Take 40 mg by mouth 2 (two) times a day. Active pregabalin (LYRICA) 200 MG capsule Take 200 mg by mouth 2 (two) times a day. Active SENNA 8.6 mg tablet Take 2 tablets by mouth nightly at bedtime. May hold for loose stool Active tamsulosin (FLOMAX) 0.4 mg Cap Take 0.4 mg by mouth every evening. Active thiamine (VITAMIN B-1) 100 MG tablet Take 100 mg by mouth daily. Active tiZANidine (ZANAFLEX) 4 MG tablet Take 4 mg by mouth 2 (two) times a day. Active DESITIN DAILY DEFENSE 13 % Crea Active tiZANidine (ZANAFLEX) 4 MG tablet Take 8 mg by mouth nightly at bedtime. Active cranberry fruit 400 mg Tab Take 400 mg by mouth daily. Active sodium chloride 3 % nebulizer solution Take 4 mL (120 mg total) by nebulization 2 (two) times a day. 240 mL 11 Active nebulizer and compressor Catherine 1 Device by Miscellaneous route 2 (two) times a day. 1 each Active diclofenac sodium (VOLTAREN) 1 % Gel Apply 4 g topically 2 (two) times a day. Active BREO ELLIPTA 200-25 mcg/dose inhaler Inhale 1 puff into the lungs daily. Active MAGNESIUM HYDROXIDE 400 mg/5 mL suspension Take 240 mg by mouth nightly at bedtime as needed (Bowel protocol; if no BM in 24 hours see step 2). 025 Active glycerin, adult, Supp Place 1 suppository rectally once as needed (Bowel protocol Step 2; If no results from prn milk of magnesia; shift mechanic to give suppository when individual wakes up). Active bisacodyl (FLEET BISACODYL) 10 mg/[address] 15 mL rectally once as needed. Bowel protocol step 3; if no BM 4 hours after suppository day shift will administer fleet enema. If no result in 4 hours contact pcp Active docusate (COLACE) 100 mg tablet Take 100 mg by mouth 2 (two) times a day. Active acetaminophen (TYLENOL) 650 MG CR tablet Take 650 mg by mouth once as needed for pain (specific location in comments) (between 12 am and 4 am; pain, headache, body ache, fever greater than 100.4). Active cycloSPORINE (RESTASIS) 0.05 % suspension Place 1 drop into each eye 2 (two) times a day as needed (dry eyes). Active methenamine (HIPREX) 1 gram tablet Take 1 g by mouth 2 (two) times a day with meals. 025 Active olopatadine (PATANOL) 0.1 % ophthalmic solution Place 1 drop into each eye 2 (two) times a day. Active fluticasone propionate (FLONASE) 50 mcg/actuation nasal sprayIndication s:Asthma INSTILL 2 SPRAYS INTO EACH NOSTRIL DAILY 16 g 6 025 Active ipratropium-alb uteroL (DUONEB) 0.5-3 mg (2.5 mg base)/3 mL nebulizer solutionIndicat ions:Asthmatic bronchitis without complication INHALE THE CONTENTS OF 1 VIAL (3ML) VIA NEBULIZER TWICE DAILY 180 mL 5 025 Active ipratropium-alb uteroL (DUONEB) 0.5-3 mg (2.5 mg base)/3 mL nebulizer solutionIndicat ions:Asthmatic bronchitis without complication INHALE THE CONTENTS OF 1 VIAL (3ML) VIA NEBULIZER TWICE DAILY 180 mL 025 2024 Discontinued Active Problems Problem Noted Date Diagnosed Date Asthmatic bronchitis without complication 2024 Hypoxia 12/03/2023 Assessment & Plan (12/04/2023 2:24 PM EDT): Pt with sudden onset SOB on 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 [facility] staff states pt has had a wet cough for over a month and has an upcoming appointment to see Dr. Shelby referred by his PCP. Less likely cardiac etiology pro BNP < 36, trop 16/14, EKG no ischemia. PE was considered in ED but D-dimer 578 and pt is on Eliquis at home, value below age adjusted d-dimer cut off Pt with leukocytosis on admission, afebrile, hypoxic to 88% on room air CT showed no infiltrate but notable for intrabronchial secretions Rocephin and Azithromycin started 12/02 for bronchitis with mucous plugging as source of transient hypoxia Procalcitonin 1.4 UA and Urine antigen pending Blood cultures neg Flu and COVID negative Wet cough is chronic per correction staff plan for SEAFO[employer] TECHNOLOGY SPECIALIST eval r/o dysphagia--negative no signs of asp Pt did receive Prednisone 60 mg in the ED no further wheezing will hold off on further steroids for now DVT (deep venous thrombosis) 12/03/2023 Assessment & Plan (12/03/2023 4:17 PM EDT): Pt is on Eliquis for history of DVT/CVA per heme unclear which was the primary indication - Pt has been compliant with this medication at his correction - Eliquis continued on admission Tobacco use 12/03/2023 Assessment & Plan (12/03/2023 5:03 PM EDT): Pt currently smoking 3-5 cigarettes per day - Pt is not interested in quitting. - Pt is not interested in a nicotine patch or gum. - Smoking cessation education provided, pt does have asthma. Anemia, unspecified 09/14/2023 Assessment & Plan (12/03/2023 5:24 PM EDT): Followed by Heme for THOMAS receives iron infusions, B-12 injections - Hgb stable from prior lab values Encounters Date Type Department Care Team Description 04/06/2025 Transcribe Orders [facility] [address] [place] [address] Bianka Del Valle MD Encounter for rehabilitation (Primary Dx) 03/30/2025 Refill [facility] [address] [place] [address] Sin Troncoso MD Medication Refill 03/16/2025 10:00 AM EDT Office Visit [facility] [address] [place] [address] Sin Troncoso MD Cigarette smoker (Primary Dx) 03/02/2025 Refill [facility] [address] [place] [address] Sin Troncoso MD Medication Refill 02/02/2025 Refill [facility] [address] [place] [address] Christopher Sue MD Medication Refill (IPRAT-ALBUT 0.5-3(2.5) MG/3 ML) 01/30/2025 Transcribe Orders [facility] [address] [place] [address] Bianka Del Valle MD Encounter for rehabilitation (Primary Dx) 01/11/2025 Refill [facility] [address] [place] [address] Anderson Edwards MD Medication Refill from Last 3 Months Immunizations Immunization Administration Dates Next Due Influenza High-Dose Quadriva lent Preservative Free IM 04/21/2023,03/29/2023,04/08/2022 Influenza High-Dose Trivalen t Preservative Free IM 04/07/2024 Influenza Quadrivalent Prese rvative Free IM 03/21/2020 Influenza, Unspecified Formulation 04/21,04/08/2022,03/21/2020,03/10,06/07/2010,07/30/2009,04/13/2008 ,04/20/2007,05/21/2006 Pneumococcal conjugate PCV13 03/21/2020 Pneumococcal polysaccharide PPSV23 01/15/2013, Td (adult),2 Lf Tetanus Toxo id, PF, Adsorbed 01/21/2023 Td, unspecified formulation 01/21/2023, 8 Tdap 12/24/2012 Zoster recombinant 06/05/2020,03/21/2020 Social History Tobacco Use Types Packs/Day Years Used Date Smoking Tobacco: Every Day Cigarettes 1 0.3 Started: 01/03/2025 Smokeless Tobacco: Never Tobacco Cessation:Ready to Q uit: No; Counseling Given: No Comments:pack every 2 days Alcohol Use Standard [...] PM EDT Sexual Orientation Not on file Last Filed Vital Signs Vital Sign Reading Time Taken Comments Blood Pressure 177/87 11/14/2024 2:25 PM EDT Pulse 72 03/16/2025 9:55 AM EDT Temperature 36.4 C (97.5 F) 03/16/2025 9:55 AM EDT Respiratory Rate 20 11/14/2024 2:25 PM EDT Oxygen Saturation 89% 03/16/2025 9:5 5 AM EDT 95 on middle finger 1st number was on index Inhaled Oxygen Concentration - - Weight 94.3 kg (208 lb) 11/11/2024 10:1 5 AM EDT Height 157.5 cm (5' 2 ) 03/16/2025 9:5 5 AM EDT Body Mass Index 38.04 11/11/2024 10:15 AM EDT Plan of Treatment Upcoming Encounters Date Type Department Care Team (Late st Contact Info) Description 03/16/2025 Procedure Pass [facility], [address] [address] 04/11/2025 1:00 PM EDT Appointment [address] [address] Sin Troncoso MD [address] [place] [address] [id number] Health Maintenance Due Date Last Done Comments LIPID PANEL 1950 DEPRESSION SCREENING 1964 COLOGUARD 1997 FOBT 1997 SIGMOIDOSCOPY 1997 VIRTUAL COLONOSCOPY 1997 RSV VACCINE (1 - Risk 60-74 years 1-dose series) 2012 ABDOMINAL AORTIC ANEURYSM (AAA) SCREENING 2017 INFLUENZA VACCINE (#1) 2025 , 04/21/2023, 04/21/2023, Additional history exists COVID-19 VACCINE (3 - 2024- season) 2025 05/26/2021, 09/01/2020 PNEUMOCOCCAL VACCINES (50+ years) (4 of 4 - PCV20 or PCV21) 03/21/2025 03/21/2020, 01/15/2013, 09/28/2009 CREATININE LEVEL 07/14/2025 07/14/2024, 12/2023, 12/05/2023, Additional history exists POTASSIUM LEVEL 07/14/2025 07/14/2024, 06/0 12/2023, 12/05/2023, Additional history exists FIT TEST 07/23/2025 07/23/2024, 09/22/2023 SMOKING Hx and SMOKELESS TOBACCO SCREENING 03/16/2026 03/16/2025 Adult Td,Tdap Booster 01/21/2033 01/21/2023 , 01/21/2023, 12/24/2012, Additional history exists COLONOSCOPY 11/14/2034 11/14/2024, 11/16/2023 COLORECTAL CANCER SCREENING 11/14/2034 ZOSTER VACCINES Completed 06/05/2020, 03/21/2020 HEPATITIS C SCREENING Completed 04/07/2024 HEPATITIS A VACCINES Aged Out No long er eligible based on patient's age to complete this topic HIB VACCINES Aged Out No longer eligi ble based on patient's age to complete this topic MENINGOCOCCAL VACCINES (ACWY) Aged Out No longer eligible based on patient's age to complete this topic MENINGOCOCCAL VACCINES (B) Aged Out N o longer eligible based on patient's age to complete this topic Medical Devices Implanted Type Area Insurance Sales Assistant Device Identifier Shelf Expiration Date Model / Serial / Lot Left Ankle Clip Hemostasis 360deg 235cm Resolution 360 Latex Free 2.8mm Channel Bx/20ea - [id number] Implanted:Qty: 2 on 11/16/2023 by Breonna Leggett MD at [facility] [employer] 04/19/2026 [id number] / / [id number] Description:Two clips placed gastric body Procedures Procedure Name Priority Date/Time Associated Diagnosis Comments ENDOSCOPY, COLON 11/14/2024 12:4 5 PM EDT HC BLOOD OCCULT FECAL HGB DETER IA QUAL FECES 1-3 Routine 07/23/2024 9:00 AM EST Anemia, unspecified type Fatty liver disease, nonalcoholic COMPREHENSIVE METABOLIC PANEL Routine 07/14/2024 3:48 PM EST Anemia, unspecified type Fatty liver disease, nonalcoholic HEPATITIS C ANTIBODY, QUALITATIVE Routine 04/07/2024 4:22 PM EDT Need for hepatitis C screening test from Last 3 Months or Most Recently Relevant to Health Maintenance Results * ENDOSCOPY, COLON (11/14/2024 12:45 PM EDT) Narrative Transcriptions Breonna Leggett MD - 11/14/2024 12:45 PM EDT [facility] Patient Name: Randal Arthur Attending MD:: BREONNA LEGGETT MD, Procedure Date: 11/14/2024 12:45 PM Date of : 1950 Age: 73 Admit Type: Outpatient Gender: Male Room: [place] [address] Referring MD: Bianka Del Valle Exam Type: Colonoscopy Indications: Screening for colorectal malignant neoplasm, Last colonoscopy 1 year ago Medications: Monitored Anesthesia Care Procedure: Informed consent was obtained from the patientafter discussion of the indications, limitations, alternatives, benefits, and risks of the procedure. Risks specifically discussed include but are not limited to medication reactions, missed lesions, bleeding, perforation, or the need for emergent surgery. Throughout the procedure, the patient's blood pressure, pulse, end-tidal CO2, and oxygensaturations were monitored continuously. The Olympus adult variable colonoscope [id number] #1 was introduced through the anus and advanced to the cecum, identified by appendiceal orifice andileocecal valve. The colonoscopy was technically difficultand complex due to poor endoscopic visualization and significant looping and ventral hernia. Successful completion of the procedure was aided by usingmanual pressure. The patient tolerated the procedure well. The quality of the bowel preparation was adequate after copious irrigation. Complications: No immediate complications. Estimated blood loss:None. Findings: A 4 mm polyp was found in the ascending colon. The polyp was sessile. The polyp was removed with acold snare. Resection and retrieval were complete. Multiple diverticula were found in the sigmoidcolon. A 5 mm polyp was found in the descending colon. The polyp was sessile. The polyp was removed with acold snare. Resection and retrieval were complete. A 5 mm polyp was found in the sigmoid colon. Thepolyp was sessile. The polyp was removed with a coldsnare. Resection and retrieval were complete. A patchy area of mild melanosis was found in the entire colon. The lumen of the colon (entire examined portion)was moderately dilated. Impression: - One 4 mm polyp in the ascending colon, removedwith a cold snare. Resected and retrieved. - Diverticulosis in the sigmoid colon. - One 5 mm polyp in the descending colon, removedwith a cold snare. Resected and retrieved. - One 5 mm polyp in the sigmoid colon, removed witha cold snare. Resected and retrieved. - Melanosis in the colon. - Dilated in the entire examined colon. Recommendation: - Patient has a contact number available for emergencies. The signsand symptoms of potential delayed complications were discussed with the patient. Return to normal activities tomorrow. Written discharge instructions were provided to the patient. - Await pathology results. - Repeat colonoscopy in 3 years for surveillance based on pathology results. Breonna Leggett BREONNA LEGGETT MD 11/14/2024 1:53:35 PM This report has been signed electronically. Number of Addenda: 0 Note Initiated On: 11/14/2024 12:45 PM Procedure Code(s): --- Professional --- 91621, Colonoscopy, flexible; with removal of tumor(s), polyp(s), or other lesion(s) by snare technique --- Technical --- 07754, Colonoscopy, flexible; with removal of tumor(s), polyp(s), or other lesion(s) by snare technique CPT copyright 2021 [employer]. All rights reserved. The codes documented in this report are preliminary and upon clarity specialists reviewmay be revised to meet current compliance requirements. Procedure Date: 11/14/2024 12:45:[address] [place] [id number] [place] Bianka Del Valle MD GI PROCEDURE ORDERABLES Janeth sonny Result * (ABNORMAL) Fecal immunochemical test x1 (FIT) (07/23/2024 9:00 AM EST) Immuno Fecal Occult Positive(A ) Negative [facility] Stool (Stool) 07/23/2024 9:0 0 AM EST 07/25/2024 2:24 PM EST Milana Espinoza PA-C BODY FLUIDS AND STOOLS ORDERABL ES Final Result [facility] [address] [place] [address] * (ABNORMAL) Comprehensive metabolic panel (07/14/2024 3:48 PM EST) Pathologist [facility] SODIUM 142 133 - 146 mmol/L [facility] POTASSIUM 4.0 3.3 - 5.1 mmol/L [facility] CHLORIDE 107 96 - 108 mmol/L [facility] CO2 27 21 - 35 mmol/L [facility] BUN 6 6 - 19 mg/dL [facility] CREATININE 0.40(L) 0.5 - 1.5 mg/dL [facility] GLUCOSE 98 70 - 99 mg/dL [facility] ALBUMIN 3.4(L) 3.9 - 4.8 g/dL [facility] TOTAL PROTEIN 6.4(L) 6.5 - 8.0 g/dL [facility] CALCIUM 8.7 8.4 - 10.3 mg/dL [facility] ALKALINE PHOSPHATASE 70 39 - 117 U/L [facility] TOTAL BILIRUBIN 0.3 0.0 - 1.2 mg/dL [facility] AST 15 0 - 37 U/L [facility] ALT 6 0 - 40 U/L [facility] GLOBULIN 3.0 1 - 4.8 g/dL [facility] EGFR 117 >59 mL/min/1.7 3m2 [facility] Comment:Estimated glomerular filtration rate calculated using the CKD-EPI refit equation. ANION GAP 12 10 - 20 mmol/L [facility] Blood 07/14/2024 3:48 PM EST 07/14/2024 4:05 PM EST Milana Espinoza PA-C LAB BLOOD ORDERABLES Final Resu lt Performing Organization Address [facility]/ZIP Co de Phone Number [address] [address] * Hepatitis C antibody, qualitative (04/07/2024 4:22 PM EDT) HCV NON-REACTIV E NON-REACTI VE [facility] Blood 04/07/2024 4:22 PM EDT 04/07/2024 4:36 PM EDT Milana Espinoza PA-C LAB BLOOD ORDERABLES Final Resu lt Performing Organization Address [facility] Co de Phone Number [address] [address] from Last 3 Months or Most Recently Relevant to Health Maintenance Insurance [employer] PPO MEDICARE REPLACEMENT [facility] AETNA [facility] A[facility]NA [facility] [place] [phone] AETNA [facility] MEDICARE REPLACEMENT HEALTH [employer] PPO MEDICARE REPLACEMENT [facility] Advance Directives For more information, please contact: [phone] (9AM - 5PM [facility], Thursday-Thursday) * Full Code (Latest Code Status on File) Date Activated Date Inactivated Comments 12/03/2023 5:20 PM Question Answer Comments Code Status Confirmed With: Patient Care Teams Rn Lvn Relationship Specialty Start Date End Date Bianka Del Valle MD [address] [place] [phone] PCP - General Family Medicine 03/15/24 Rachel Rush PA-C [address] [place] [phone] Physician Specialist Physicians H[facility]ology 08/26/23 Jus Diaz MD [address] [place] [id number] [email or web address] Emergency Medicine 02/12/24 Additional Source Comments The information contained in this document represents components of the legal health record. It is not the complete legal health record.[facility]
--- OUTSIDE RECORDS SUMMARY | 2025-04-07 11:36 | XMS_ITS | Encounter Summary ---
Author Organization [facility] Address [address] [facility] [address] [address] [place] [address] Phone Care Team Providers Care Him Assistant Name Role Phone Bianka Del Valle MD Primary Care Provider Rachel Rush PA-C Unavailable [phone] Jus Diaz MD Unavailable [phone] Bianka Del Valle MD Primary Care Provider Reason for Referral * Molecular Pathology - Closed Specialty Diagnoses / Procedures Referred By Iza mcpherson Referred To Contact Diagnoses Need for hepatitis C screening test Anemia, unspecified type Change in bowel habits Procedures Hemochromatosis Gene Analysis Milana Espinoza PA-C Phone: tel: fax: [email or web address] Referral ID Status Reason Start Date Expiration Date Visits Re quested Visits Authorized [id number] Closed 12/10/2023 12/09/2024 1 1 Encounter Details Date Type Department Care Team (Latest Contact Info) Description 12/10/2023 Transcribe Orders [facility] [address] [place] [address] Milana Espinoza PA-C [address] [place] [address] [email or web address] Need for hepatitis C screening test (Primary Dx); Anemia, unspecified type; Change in bowel habits Social History Tobacco Use Types Packs/Day Years [...] st Contact Info) Description 03/16/2025 Procedure Pass [facility], Ct [address] [address] 04/11/2025 1:00 PM EDT Appointment [facility], [address] [address] Sin Troncoso MD [address] [place] [id number] [email or web address] documented as of this encounter Results * Hepatitis C antibody, qualitative (04/07/2024 4:22 PM EDT) HCV NON-REACTIV E NON-REACTI VE [facility] Blood 04/07/2024 4:22 PM EDT 04/07/2024 4:36 PM EDT us Milana Espinoza PA-C LAB BLOOD ORDERABLES Final Resu lt Performing Organization Address [facility]/ZIP Co de Phone Number [address] [address] * Hepatitis B surface antigen (04/07/2024 4:22 PM EDT) HBV SURFACE ANTIGEN NON-REACTI VE NON-REACTI VE [facility] Blood 04/07/2024 4:22 PM EDT 04/07/2024 4:36 PM EDT us Milana Espinoza PA-C LAB BLOOD ORDERABLES Final Resu lt Performing Organization Address [facility]/ZIP Co de Phone Number [address] [address] * Ova and parasites, stool (01/08/2024 8:00 AM EDT) Parasitic exam FINAL 4 1450 [facility] DPT OF LAB MED AND PAT+ Comment: (NOTE) SOURCE: STOOL, STLP OVA AND PARASITE, MICROSCOPY, F FINAL No parasites seen. Cryptosporidium, Cyclospora, and microsporidia are not readily detected by this method. Single negative specimen does not rule out parasitic infection. Stool (Stool) 01/08/2024 8:0 0 AM EDT 01/11/2024 12:44 PM EDT Milana Espinoza PA-C MICROBIOLOGY - GENERAL ORDERABL ES Final Result Performing Organization Address [facility]/ZIP Co de Phone Number [facility] DPT OF LAB MED AND PAT+ [address] [place] [address] * Ova and parasites, stool (01/07/2024 8:30 AM EDT) Parasitic exam FINAL 4 1440 [facility] DPT OF LAB MED AND PAT+ Comment: (NOTE) SOURCE: STOOL, STLP OVA AND PARASITE, MICROSCOPY, F FINAL No parasites seen. Cryptosporidium, Cyclospora, and microsporidia are not readily detected by this method. Single negative specimen does not rule out parasitic infection. Stool (Stool) 01/07/2024 8:3 0 AM EDT 01/11/2024 12:41 PM EDT Milana Espinoza PA-C MICROBIOLOGY - GENERAL ORDERABL ES Final Result Performing Organization Address [facility] Co de Phone Number [facility] DPT OF LAB MED AND PAT+ [address] [place] [address] * Ova and parasites, stool (01/05/2024 9:00 AM EDT) Parasitic exam FINAL 4 1432 [facility] DPT OF LAB MED AND PAT+ Comment: (NOTE) SOURCE: STOOL, STLP OVA AND PARASITE, MICROSCOPY, F FINAL No parasites seen. Cryptosporidium, Cyclospora, and microsporidia are not readily detected by this method. Single negative specimen does not rule out parasitic infection. Stool (Stool) 01/05/2024 9:0 0 AM EDT 01/11/2024 12:39 PM EDT Milana Espinoza PA-C MICROBIOLOGY - GENERAL ORDERABL ES Final Result Performing Organization Address City/[facility] Co de Phone Number [facility] DPT OF LAB MED AND PAT+ [address] [place] [address] * (ABNORMAL) PT-INR (12/10/2023 11:40 AM EDT) PT 17.7(H) 10.2 - 12.9 sec [facility] INR 1.6(H) 0.9 - 1.1 [facility] Comment:Therapeutic range fo r oral Vitamin K antagonists: 2.0-3.5 Blood 12/10/2023 11:4 0 AM EDT 12/10/2023 11:48 AM EDT Milana Espinoza PA-C LAB BLOOD ORDERABLES Final Resu lt Performing Organization Address City/[facility]/ZIP Co de Phone Number [address] [address] * Ferritin (12/10/2023 11:40 AM EDT) FERRITIN 45 30 - 400 ug/L [facility] Blood 12/10/2023 11:4 0 AM EDT 12/10/2023 11:48 AM EDT Milana Espinoza PA-C LAB BLOOD ORDERABLES Final Resu lt Performing Organization Address City/[facility] Co de Phone Number [address] [address] * (ABNORMAL) Monoclonal protein study, serum (12/10/2023 11:40 AM EDT) M-protein GK Test component not applicable or not reported. g/dL [facility]/[address] M-protein GL Test component not applicable or not reported. g/dL [facility]/[address] M-protein AK Test component not applicable or not reported. g/dL [facility] M-protein AL Test component not applicable or not reported. g/dL [facility] M-protein MK Test component not applicable or not reported. g/dL [facility] M-protein ML Test component not applicable or not reported. g/dL [facility] Glycosylation Test component not applicable or not reported. [facility] MED/[address] Flag, M-protein Isotype Negative Negative [facility] MED/[address] QMPTS Interpretation No monoclonal protein detected. [facility] MED/[address] Comment: (NOTE) ADDITIONAL INFORMATION The submitted sample was assayed by five separate immunopurifications for IgG, IgA, IgM, kappa and lambda. The result reflects the findings of either no monoclonal protein detected or those monoclonal immunoglobulins that were detected. This test was developed and its performance characteristics determined by [facility] in a manner consistent with CLIA requirements. This test has not been cleared or approved by the U.S. Food and Drug Administration. IgA 400(H) 61 - 356 mg/dL [facility] IgM 33(L) 37 - 286 mg/dL [facility] IgG 1,330 767 - 1,590 mg/dL [facility] Therapeutic Antibody Administered? Unknown [facility] Blood 12/10/2023 11:4 0 AM EDT 12/10/2023 11:48 AM EDT Milana Espinoza PA-C LAB BLOOD ORDERABLES Final Resu lt [facility] [address] [place] [address] * TSH (12/10/2023 11:40 AM EDT) TSH 1.62 0.27 - 4.20 uIU/mL [facility] Blood 12/10/2023 11:4 0 AM EDT 12/10/2023 11:48 AM EDT Milana Espinoza PA-C LAB BLOOD ORDERABLES Final Resu lt [facility] [address] [place] [address] * (ABNORMAL) Iron and iron binding capacity (12/10/2023 11:40 AM EDT) IRON 262(H) 45 - 160 ug/dL [facility] IRON BINDING CAPACITY NOT CALCULATED 228 - 428 ug/dL [facility] TRANSFERRIN SATURAT. NOT CALCULATED 20 - 55 % [facility] Blood 12/10/2023 11:4 0 AM EDT 12/10/2023 11:48 AM EDT Milana Espinoza PA-C LAB BLOOD ORDERABLES Final Resu lt Performing Organization Address City/[facility]/ZIP Co de Phone Number [address] [address] * Lipase (12/10/2023 11:40 AM EDT) LIPASE 27 16 - 63 U/L [facility] Blood 12/10/2023 11:4 0 AM EDT 12/10/2023 11:48 AM EDT Milana Espinoza PA-C LAB BLOOD ORDERABLES Final Resu lt Performing Organization Address [facility] Co de Phone Number [address] [address] * Hemochromatosis Gene Analysis (12/10/2023 11:40 AM EDT) Pathologist [facility] HFE Gene analysis SEE NOTE 4 08:46 AM [facility] DPT OF LAB MED AND PAT+ Comment: (NOTE) Test Result Flag Unit RefValue Hereditary Hemochromatosis HFE Test Result Summary NEGATIVE Result SEE NOTE C282Y: Not detected. H63D: Not detected. Interpretation SEE NOTE This result reduces the risk but does not rule out either a diagnosis of or predisposition for hereditary hemochromatosis (HH). This assay does not rule out the presence of other disease-causing variants in the HFE gene or in other genes associated with hemochromatosis. Non-HFE-HH causes should also be considered. These results should be interpreted in the context of clinical findings, family history, and other laboratory testing (e.g. serum transferrin-iron saturation and serum ferritin). Genetic testing and other laboratory testing of an affected family member can determine if this result is of predictive value for this individual. A genetic consultation may be of benefit. ADDITIONAL INFORMATION An online research opportunity called [employer] ([employer]), a project of [employer], is available for the recipient of this genetic test. This patient registry collects de-identified genetic and health information to advance the knowledge of genetic variants. [facility] is a collaborator of [employer]. This may not be applicable for all tests. Test results should be interpreted in the context of clinical findings, family history, and other laboratory data. Misinterpretation of results may occur if the information provided is inaccurate or incomplete. Rare polymorphisms exist that could lead to false-negative or false-positive results. If results obtained do not match the clinical findings, additional testing should be considered. Bone Marrow transplants from allogenic donors will interfere with testing. Call [facility] for instructions for testing patients who have received a bone marrow transplant. One or more in silico tools were used to assist in the interpretation of these results. These tools are updated regularly and predictions for a given variant may change. Additionally, the predictability of these tools for the determination of pathogenicity is currently unvalidated. This test was developed and its performance characteristics determined by [facility] in a manner consistent with CLIA requirements. This test has not been cleared or approved by the U.S. Food and Drug Administration. Specimen WB Whole Blood Method SEE NOTE Droplet Digital Polymerase Chain Reaction (ddPCR) was used to test for the following three variants in the HFE gene; C282Y, H63D, and S65C. Because of the minimal effect on iron metabolism associated with the S65C variant, it is only reported when it is found with the C282Y variant (i.e. if the patient has the C282Y/S65C genotype). Released By Quan Orozco, Ph.D. Blood 12/10/2023 11:4 0 AM EDT 12/10/2023 11:48 AM EDT us Milana Espinoza PA-C LAB BLOOD ORDERABLES Final Resu lt [facility] DPT OF LAB MED AND PAT+ [address] [place] [address] * (ABNORMAL) Comprehensive metabolic panel (12/10/2023 11:40 AM EDT) SODIUM 144 133 - 146 mmol/L [facility] POTASSIUM 4.1 3.3 - 5.1 mmol/L [facility] CHLORIDE 107 96 - 108 mmol/L [facility] CO2 28 21 - 35 mmol/L [facility] BUN 9 6 - 19 mg/dL [facility] CREATININE 0.40(L) 0.5 - 1.5 mg/dL [facility] GLUCOSE 111(H) 70 - 99 mg/dL [facility] ALBUMIN 3.4(L) 3.9 - 4.8 g/dL [facility] TOTAL PROTEIN 6.2(L) 6.5 - 8.0 g/dL [facility] CALCIUM 8.6 8.4 - 10.3 mg/dL [facility] ALKALINE PHOSPHATASE 61 39 - 117 U/L [facility] TOTAL BILIRUBIN 0.3 0.0 - 1.2 mg/dL [facility] AST 19 0 - 37 U/L [facility] ALT 15 0 - 40 U/L [facility] GLOBULIN 2.8 1 - 4.8 g/dL [facility] EGFR 117 >59 mL/min/1.7 3m2 [facility] Comment:Estimated glomerular filtration rate calculated using the CKD-EPI refit equation. ANION GAP 13 10 - 20 mmol/L [facility] Blood 12/10/2023 11:4 0 AM EDT 12/10/2023 11:48 AM EDT us Milana Espinoza PA-C LAB BLOOD ORDERABLES Final Resu lt [facility] [address] [place] [address] * (ABNORMAL) CBC (12/10/2023 11:40 AM EDT) WBC 6.12 4.00 - 11.00 K/uL [facility] RBC 4.52 3.90 - 5.69 M/uL [facility] HGB 9.9(L) 12.4 - 17.3 g/dL [facility] HCT 35.2(L) 37.0 - 51.0 % [facility] PLT 424 140 - 430 K/uL [facility] MCV 77.9(L) 78.0 - 97.0 fL [facility] MCH 21.9(L) 25.0 - 33.0 pg [facility] MCHC 28.1(L) 32.0 - 36.0 g/dL [facility] RDW 22.2(H) 11.0 - 15.0 % [facility] MPV 9.9 8.4 - 12.8 fl [facility] Blood 12/10/2023 11:4 0 AM EDT 12/10/2023 11:48 AM EDT us Milana Espinoza PA-C LAB BLOOD ORDERABLES Final Resu lt [facility] [address] [place] [address] * Smooth Muscle Antibody (12/10/2023 11:40 AM EDT) SMOOTH MUSCLE AB POSITIVE AT 1:20 [facility] Comment: Performing Physician, Bradley Tidwell M.D., [id number] Normal: Negative at 1:20 Blood 12/10/2023 11:4 0 AM EDT 12/10/2023 11:49 AM EDT Milana Espinoza PA-C LAB BLOOD ORDERABLES Final Resu lt [facility] [address] [place] [address] * Antinuclear antibody (LEIDY) (12/10/2023 11:40 AM EDT) LEIDY SCREEN ON HEP 2 Negative Negative [facility] Blood 12/10/2023 11:4 0 AM EDT 12/10/2023 11:48 AM EDT Milana Espinoza PA-C LAB BLOOD ORDERABLES Final Resu lt Performing Organization Address [facility] Co de Phone Number [address] [address] * Anti-Mitochondrial Antibody (AMA) (12/10/2023 11:40 AM EDT) Pathologist [facility] MITOCHONDRIAL AB NEGATIVE AT 1:20 [facility] Comment: Performing Physician, Bradley Tidwell M.D., [id number] Normal: Negative at 1:20 Blood 12/10/2023 11:4 0 AM EDT 12/10/2023 11:49 AM EDT Milana Espinoza PA-C LAB BLOOD ORDERABLES Final Resu lt Performing Organization Address [facility] Co de Phone Number [address] [address] * AFP (non-maternal specimens) (12/10/2023 11:40 AM EDT) [facility] AFP (NON-MATERNAL) <1.8 <7.9 ng/mL [facility] Comment: Test Methodology [facility] [id number] Patient results determined by assays using different manufacturers or methods may not be comparable. Blood 12/10/2023 11:4 0 AM EDT 12/10/2023 11:48 AM EDT Milana Espinoza PA-C LAB BLOOD ORDERABLES Final Resu lt Performing Organization Address [facility] Co de Phone Number [address] [address] * Dcfbb-[id number] phenotyping (12/10/2023 11:40 AM EDT) [facility] ALPHA 1 ANTITRYPSIN 159 100 - 190 mg/dL [facility] Comment: (NOTE) ADDITIONAL INFORMATION Method: Nephelometry A1A PHENOTYPE IM bands [facility] MED/[facility] [address] Comment: (NOTE) Heterozygous for I and M isoforms. This phenotype is usually associated with normal mjycc-0-iyckxzsehgx concentrations. ADDITIONAL INFORMATION Method: Isoelectric Focusing, This assay identifies the phenotype of the circulating pvpud-7-fmhofddledl (A1A) protein. If the patient is on replacement therapy or has been recently transfused, the phenotype will detect patient and replacement or transfused plasma A1A protein. This test also cannot detect a null allele which could be responsible for an A1A deficiency. Blood 12/10/2023 11:4 0 AM EDT 12/10/2023 11:48 AM EDT us Milana Espinoza PA-C LAB BLOOD ORDERABLES Final Resu lt [facility] [address] [place] [address] documented in this encounter Visit Diagnoses Diagnosis Need for hepatitis C screening test- Primary Special screening examination for other specified viral diseases Anemia, unspecified type Change in bowel habits Other symptoms involving digestive system documented in this encounter Additional Health Concerns Infection Onset Date Last Indicated Resolved Time CoV-Risk 12/03/2023 12/03/2023 12/14/2023 1:24 AM EDT CDiff-Risk 12/10/2023 12/10/2023 12/17/2023 1:21 AM EDT documented as of this encounter Care Teams Him Assistant Relationship Specialty Start Date End Date Bianka Del Valle MD [email or web address] PCP - General Family Medicine 08/26/23 03/14/24 Bianka Del Valle MD [address] [place] [id number] [email or web address] PCP - General Family Medicine 03/15/24 Rachel Rush PA-C [address] [place] [phone] [email or web address] Physician Therapist Phys Hematology 08/26/23 Jus Diaz MD [address] [place] [phone] [email or web address] Emergency Medicine 02/12/24 documented as of this encounter Additional Source Comments The information contained in this document represents components of the legal health record. It is not the complete legal health record.[facility]
[2025-04-07 12:14] LABS: Potassium 3.3 mmol/L (3.3-5.1); Sodium 138 mmol/L (135-145)
[2025-04-07 12:15] LABS: Anion Gap 9 (12-20); Blood Urea Nitrogen 7 mg/dL (9-16); Calcium 8.6 mg/dL (8.4-10.2); Carbon Dioxide 30 mmol/L (22-29); Chloride 102 mmol/L (96-108); Estimated Glomerular Filt Rate > 60
== END 2025-04-07 10:35 | disposition home or self-care (01) ==
LOC: HO.LAB 10:34
PROVIDERS: Visit Provider Internal Medicine
DX: I50.32 Chronic diastolic (congestive) heart failure (principal)
CPT/HCPCS: 36415; 80048

== ENCOUNTER 2025-05-01 11:07 | Outpatient (AMB) | payer MEDICARE, SELFPAY ==
--- NOTE | 2025-05-01 11:13 | MHC.OFFVIS ---
Intake Visit Reasons: 6m spasticity Accompanied by: Staff member Allergies No Known Allergies Allergy (Verified 05/01/25 11:20) Medication List - Last Reconciled 05/01/25 by January Reeves CNP acetaminophen 1,000 mg PO TID PRN apixaban (Eliquis) 5 mg PO BID 30 days atorvastatin 1 tab PO DAILY baclofen 5 mg PO TID baclofen 5 mg PO BEDTIME PRN budesonide-formoterol 160-4.5 mcg/actuation (Symbicort) 2 puffs PO BID 30 days carbamide peroxide 6.5% 5 drps otic (ears) DAILY PRN 4 days clonazepam (Klonopin) 1 mg PO BEDTIME 30 days clotrimazole 1% 1 appl topical BID 2 weeks cyanocobalamin (vitamin B-12) 1,000 mcg IM Q4W 1 month diclofenac sodium 1% (Arthritis Pain (diclofenac)) 4 grams topical BID 30 days docusate sodium (Colace) 100 mg PO BID 90 days ferrous sulfate 325 mg PO QAM fluoxetine 10 mg PO DAILY folic acid 1 mg PO DAILY furosemide 40 mg PO DAILY glycerin (adult) (Fleet Glycerin (Adult) rectal suppository) 1 supp IA DAILY PRN guaifenesin (Cough Syrup) 200 mg (10 mL) PO Q6H PRN ipratropium-albuterol 0.5 mg-3 mg(2.5 mg base)/3 mL mL inhalation lidocaine 5% 1 patch topical DAILY 30 days losartan 100 mg PO DAILY magnesium hydroxide (Milk of Magnesia) 30 mL PO DAILY PRN menthol 0.8% (Gold Conte Medicated Body) apply to groin topically 2 times a day; metoprolol succinate ER 50 mg PO DAILY 90 days miscellaneous medical supply extra large briefs miscellaneous; nitrofurantoin macrocrystal 100 mg PO Q12H 10 days pantoprazole 40 mg PO BID 30 days peg 3350-electrolytes 236-22.74-6.74 -5.86 gram (GaviLyte-G) 4,000 mL PO DIRECTED 1 day polyethylene glycol 3350 17 grams PO DAILY 30 days pregabalin 200 mg PO BID sennosides (senna) 17.2 mg (2 x 8.6 mg) PO BEDTIME sodium phosphates 19-7 gram/118 mL (Fleet Enema) 118 mL IA ONCE sodium,potassium,mag sulfates 17.5-3.13-1.6 gram (Suprep Bowel Prep Kit) DILUTE; drink 1/2 at 6-8 pm and half at 11 PM- 1AM syringe with needle (mGaadi Luer Slip Syringe-Needle) As directed syringe with needle (BD Luer-Maranda Syringe) As directed tamsulosin (Flomax) 0.4 mg PO BEDTIME TENS units As directed and use PRN up to 4x per day thiamine HCl (vitamin B1) 100 mg PO DAILY 90 days zinc oxide 40% 1 appl topical 8XD PRN HPI Comments Details: 74-year-old man with obesity, DM, depression, anxiety, left hemiparesis probably from a remote stroke, permanently in a wheel chair, left leg spasticity and spasms, and visual hallucinations. He was having more pain and spasms primarily to left leg. Tizanidine was discontinued and he was started on baclofen 5mg three times a day with additional dose at bedtime as needed by PCP about one month ago. Medication did not seem to be helping. Sleep was so-so. [facility] Medical History On anticoagulant therapy On beta stefan at home Ileus Muscle spasms of both lower extremities DVT (deep venous thrombosis) Pressure ulcer, buttock COPD (chronic obstructive pulmonary disease) Essential hypertension Wheelchair bound Hypertension, essential Diabetes type 2, controlled Incontinence of feces Incontinence of urine Spastic paralysis Left-sided weakness CVA (cerebral vascular accident) Surgical History History of cholecystectomy History of esophagogastroduodenoscopy (EGD) Hx of colonoscopy Family History Mother No problems noted. Father No problems noted. Social History Household Members: Other Housing: Other Housing Other:: senior care. Do you presently have visiting nurse or other home services: No Alcohol intake: current Alcohol intake frequency: 0-2 drinks per day Alcohol type: hard liquor Patient Tobacco Use Status: Current everyday Tobacco user Tobacco use type: Cigarette Cigarettes Per Day: 10 e-Cigarette/Vaping Use: Never Used Second Hand Smoke Exposure: Yes service: No Current occupational status: disabled Cognitive needs: Yes (Wheel chair) Hearing needs: No Vision needs: Yes (Glasses) Review of Systems Const Denies chills, Denies daytime sleepiness, Denies difficulty sleeping, Denies fatigue, Denies fever(s), Denies frequent falls, Denies headache(s), Denies increased appetite, Denies poor appetite, Denies snoring, Denies weakness, Denies weight gain and Denies weight loss Eyes Denies loss of vision ENT Denies vertigo, Denies dizziness and Denies headache(s) Card Denies chest pain at rest, Denies chest pain with activity, Denies syncope, Denies leg edema and Denies palpitations Resp Denies snoring GI Denies constipation, Denies heartburn, Denies diarrhea and Denies nausea Denies urinary frequency, Denies urinary incontinence and Denies urinary urgency Musc Denies abnormal gait, Reports muscle weakness, Denies numbness and Denies tingling Skin/Breast Denies dry skin and Denies rash Neuro Denies abnormal gait, Denies vertigo, Denies dizziness, Denies syncope, Denies frequent falls, Denies headache(s), Denies lack of coordination, Denies loss of vision, Reports memory loss, Denies numbness, Denies restless legs, Denies seizure-like activity, Denies tingling, Denies paresthesias, Reports tremor(s) and Denies weakness Psych Denies anxiety, Denies depression, Denies auditory hallucinations, Reports memory loss, Denies visual hallucinations and Denies suicidal ideation Endo Denies fatigue and Denies palpitations Physical Exam Const Other: General Appearance:? normal, in no acute distress. Skin:? no rashes, no significant birthmarks. Heart:? S1, S2 normal, no murmurs. Lungs:? clear anteriorly and posteriorly. Extremities:? no edema. Psych:? alert, oriented, cognitive function intact, cooperative with exam. Neuro Other: Mental Status:?Alert and awake with normal sp speech, fluency, comprehension, and flat affect. Cranial Nerves:?Pupils are equal, round and reactive to light. External occular muscles are intact. Visual teresa: left hemianopsia. Face is symmetrical. Facial sensations are normal. Tongue is midline. Palate elevates symmetrically. Shoulder shrugging is normal. Hearing to bedside conversation is normal. Motor Examination:?Severe left hemiparesis, right leg is also weak, and he could barely wiggle toes on right foot. Sensory Exam:?....? Gait Exam: In wheelchair. Extrapyramidal System:?No tremor, rigidity with normal facial expressions.? Pronator Drift:?Not present.? Involuntary Movements:?No tremors seen.? Speech:?Normal.? Results Reviewed Results Reviewed: EEG at office in Apr 2020:WNL CT brain [facility] at [facility] in 2011: R MCA area infarct, mod atrophy Assessment & Plan Assessment & Plan (1) Spasticity: Code(s): R25.2 - Cramp and spasm Category: Medical Plan: Continue clonazepam 1mg 1 tablet at bedtime #30 for 30 days. Increase baclofen 10mg 1 tablet three times a day. 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
--- OUTSIDE RECORDS SUMMARY | 2025-05-01 14:06 | XMS_ITS | Encounter Summary ---
Author Organization [facility] Address [address] [facility] [address] [place] [address] Phone Care Team Providers Care Material Handler 2Nd Shift Name Role Phone Bianka Del Valle MD Primary Care Provider Rachel Rush PA-C Unavailable [phone] Jus Diaz MD Unavailable Bianka Del Valle MD Primary Care Provider Encounter Details Date Type Department Care Team (Late st Contact Info) Description 11/16/2023 Procedure Pass [facility] Endoscopy Admitting Dept Virtual Department [address] [place], [place] [id number] Social History Tobacco Use Types Packs/Day Years [...] Care Team (Late st Contact Info) Description 05/03/2025 4:00 PM EDT Office Visit [address] [address] Bianka Del Valle MD [address] [place] [phone] Isabel Schmidt CCC-MAT WEAVER [address] [place] [address] 05/10/2025 1:00 PM EST Office Visit [address] [place] [address] Bianka Del Valle MD [address] [place] [address] Isabel Schmidt CCC-MAT WEAVER [address] [place] [address] 05/18/2025 11:30 AM EST Office Visit [address] [place] [address] Bianka Del Valle MD [address] [place] [address] Isabel Schmidt CCC-MAT WEAVER [address] [place] [address] 05/24/2025 1:00 PM EST Office Visit [address] [place] [address] Bianka Del Valle MD [address] [place] [address] Isabel Schmidt CCC-MAT WEAVER 8 [place] [address] 05/29/2025 12:30 PM EST Appointment [facility] [address] [place] [address] Sin Troncoso MD [address] [place] [address] 05/30/2025 11:30 AM EST Office Visit [address] [address] Bianka Del Valle MD [address] [place] [address] Isabel Schmidt CCC-MAT WEAVER [address] [place] [address] 06/07/2025 4:00 PM EST Office Visit [address] [address] Bianka Del Valle MD [address] [place] [address] Isabel Schmidt CCC-MAT WEAVER [address] [place] [address] 06/14/2025 4:00 PM EST Office Visit [address] [address] Bianka Del Valle MD [address] [place] [address] Isabel Schmidt CCC-MAT WEAVER [address] [place] [address] documented as of this encounter Visit Diagnoses Not on filedocumented in this encounter Additional Health Concerns Infection Onset Date Last Indicated Resolved Time CoV-Risk 12/03/2023 12/03/2023 12/14/2023 1:24 AM EDT CDiff-Risk 12/03/2023 12/03/2023 12/04/2023 1:00 AM EDT CDiff-Risk 12/10/2023 12/10/2023 12/17/2023 1:21 AM EDT documented as of this encounter Care Teams Material Handler 2Nd Shift Relationship Specialty Start Date End Date Bianka Del Valle MD PCP - General Family Medicine 08/26/23 03/14/24 Bianka Del Valle MD [address] [place] [address] PCP - General Family Medicine 03/15/24 Racehl Rush PA-C [address] [place] [address] Physician Structural Steel Erection Supervisor Hematology 08/26/23 Jus Diaz MD [address] [place] [address] Emergency Medicine 02/12/24 documented as of this encounter Additional Source Comments The information contained in this document represents components of the legal health record. It is not the complete legal health record.[facility]
--- OUTSIDE RECORDS SUMMARY | 2025-05-01 14:07 | XMS_ITS | Encounter Summary ---
Author Organization [facility] Address [address] [place] [address] Phone Care Team Providers Care Broadcast Traffic Coordinator Name Role Phone Rachel Rush PA-C Unavailable [phone] Jus Diaz MD Unavailable [phone] Bianka Del Valle MD Primary Care Provider Encounter Details Date Type Department Care Team (Late st Contact Info) Description 03/16/2025 Procedure Pass [facility], Ct Scan - [address] [address] Social History Tobacco Use Types Packs/Day Years [...] Description 05/03/2025 4:00 PM EDT Office Visit [address] [address] Bianka Del Valle MD [address] [place] [address] Isabel Schmidt CCC-WELFARE CASE WORKER [address] [place] [address] 05/10/2025 1:00 PM EST Office Visit [address] [place] [address] Bianka Del Valle MD [address] [place] [address] Isabel Schmidt CCC-WELFARE CASE WORKER [address] [place] [address] 05/18/2025 11:30 AM EST Office Visit [address] [place] [address] Bianka Del Valle MD [address] [place] [address] Isabel Schmidt CCC-WELFARE CASE WORKER [address] [place] [address] 05/24/2025 1:00 PM EST Office Visit [facility] [address] [place] [address] Bianka Del Valle MD [address] [place] [phone] Isabel Schmidt CCC-WELFARE CASE WORKER 8 [place] [address] 05/29/2025 12:30 PM EST Appointment [facility] [address] [place] [address] Sin Troncoso MD [address] [place] [address] 05/30/2025 11:30 AM EST Office Visit [facility] [address] [place] [address] Bianka Del Valle MD [address] [place] [address] Isabel Schmidt CCC-WELFARE CASE WORKER [address] [place] [address] 06/07/2025 4:00 PM EST Office Visit [facility] [address] [place] [address] Bianka Del Valle MD [address] [place] [address] Isabel Schmidt CCC-WELFARE CASE WORKER 8 [place] [address] 06/14/2025 4:00 PM EST Office Visit [facility] 8 [place] [address] Bianka Del Valle MD [address] [place] [address] Isabel Schmidt, [facility]-WELFARE CASE WORKER [address] [place] [address] documented as of this encounter Visit Diagnoses Not on filedocumented in this encounter Care Teams Broadcast Traffic Coordinator Relationship Specialty Start Date End Date Bianka Del Valle MD [address] [place] [address] PCP - General Family Medicine 03/15/24 Rachel Rush PA-C [address] [place] [address] Physician Straight Line Press Setter Hematology 08/26/23 Jus Diaz MD [address] [place] [address] Emergency Medicine 02/12/24 documented as of this encounter Additional Source Comments The information contained in this document represents components of the legal health record. It is not the complete legal health record.[facility]
--- OUTSIDE RECORDS SUMMARY | 2025-05-01 14:07 | XMS_ITS | Encounter Summary ---
Author Organization [facility] Address [address] [facility] [address] [place] [address] Phone Care Team Providers Care Offender Job Retention Specialist Name Role Phone Rachel Rush PA-C Unavailable [phone] Jus Diaz MD Unavailable [phone] Bianka Del Valle MD Primary Care Provider Encounter Details Date Type Department Care Team (Late st Contact Info) Description 10/06/2024 Procedure Pass [facility] Endoscopy Admitting Dept Virtual Department [address] [place] [address] Social History Tobacco Use Types Packs/Day Years [...] Description 05/03/2025 4:00 PM EDT Office Visit [address] [address] Bianka Del Valle MD [address] [place] [address] Isabel Schmidt CCC-DIFFERENTIAL REPAIRER [address] [place] [address] 05/10/2025 1:00 PM EST Office Visit [address] [address] Bianka Del Valle MD [address] [place] [phone] Isabel Schmidt CCC-DIFFERENTIAL REPAIRER [address] [place] [address] 05/18/2025 11:30 AM EST Office Visit [address] [address] Bianka Del Valle MD [address] [place] [address] Isabel Schmidt CCC-DIFFERENTIAL REPAIRER [address] [place] [address] 05/24/2025 1:00 PM EST Office Visit [address] [place] [address] Bianka Del Valle MD [address] [place] [address] Isabel Schmidt CCC-DIFFERENTIAL REPAIRER [address] [place] [address] 05/29/2025 12:30 PM EST Appointment [facility] [address] [place] [address] Sin Troncoso MD [address] [place] [address] 05/30/2025 11:30 AM EST Office Visit [address] [address] Bianka Del Valle MD [address] [place] [address] Isabel Schmidt CCC-DIFFERENTIAL REPAIRER [address] [place] [address] 06/07/2025 4:00 PM EST Office Visit [address] [address] Bianka Del Valle MD [address] [place] [address] Isabel Schmidt CCC-DIFFERENTIAL REPAIRER [address] [place] [address] 06/14/2025 4:00 PM EST Office Visit [facility] 8 [place] [address] Bianka Del Valle MD [address] [place] [phone] Isabel Schmidt, [facility]-DIFFERENTIAL REPAIRER [address] [place] [address] documented as of this encounter Visit Diagnoses Not on filedocumented in this encounter Care Teams Offender Job Retention Specialist Relationship Specialty Start Date End Date Bianka Del Valle MD [address] [place] [address] PCP - General Family Medicine 03/15/24 Rachel Rush PA-C [address] [place] [address] Physician Courtroom Deputy Hematology 08/26/23 Jus Diaz MD [address] [place] [address] Emergency Medicine 02/12/24 documented as of this encounter Additional Source Comments The information contained in this document represents components of the legal health record. It is not the complete legal health record.[facility]
--- OUTSIDE RECORDS SUMMARY | 2025-05-01 14:07 | XMS_ITS | Clinical Summary ---
Author Organization [facility] Address [address] [place] [address] Care Team Providers Care Blister Rust Eradicator Name Role Phone Unavailable Primary Care Provider [...] this topic Insurance [employer] MCR Adv PPO ([id number]) [employer] MCR Adv PPO ([id number])
--- OUTSIDE RECORDS SUMMARY | 2025-05-01 14:07 | XMS_ITS | Encounter Summary ---
Author Organization [facility] Address [address] [employer] [facility] [address] [place] [address] Phone Care Team Providers Care Tobacco Dipper Name Role Phone Rachel Rush PA-C Unavailable [phone] Jus Diaz MD Unavailable Bianka Del Valle MD Primary Care Provider [phone] Encounter Details Date Type Department Care Team (Latest Contact Info) Description 07/14/2024 Transcribe Orders [facility] Laboratory [address] [id number] Milana Espinoza PA-C [address], [address] [place] [address] [email or web address] Anemia, unspecified type (Primary Dx); Fatty liver [...] Description 05/03/2025 4:00 PM EDT Office Visit [address] [place] [address] Bianka Del Valle MD [address] [place] [phone] Isabel Schmidt [facility]ER [address] [place] [phone] 05/10/2025 1:00 PM EST Office Visit [address] [place] [address] Bianka Del Valle MD [address] [place] [phone] Isabel Schmidt [facility] [address] [place] [phone] 05/18/2025 11:30 AM EST Office Visit [address] [place] [address] Bianka Del Valle MD [address] [place] [phone] Isabel Schmidt [facility] [address] [place] [address] 05/24/2025 1:00 PM EST Office Visit [facility] [address] [place] [address] Bianka Del Valle MD [address] [place] [phone] Isabel Schmidt [facility] [address] [place] [address] 05/29/2025 12:30 PM EST Appointment [facility] [address] [place] [phone] Sin Troncoso MD [address] [place] [phone] 05/30/2025 11:30 AM EST Office Visit [address] [place] [address] Bianka Del Valle MD [address] [place] [phone] Isabel Schmidt [employer]-[facility]O[employer]ER [address] [place] [phone] 06/07/2025 4:00 PM EST Office Visit [address] [place] [address] Bianka Del Valle MD [address] [place] [phone] [email or web address] Isabel Schmidt [facility] [address] [place] [address] 06/14/2025 4:00 PM EST Office Visit [facility] [address] [place] [address] Bianka Del Valle MD [address] [place] [phone] [email or web address] Isabel Schmidt [facility] [address] [place] [address] [email or web address] documented as of this encounter Results * (ABNORMAL) Fecal immunochemical test x1 (FIT) (07/23/2024 9:00 AM EST) Immuno Fecal Occult Positive(A ) Negative [facility] Stool (Stool) 07/23/2024 9:0 0 AM EST 07/25/2024 2:24 PM EST us Milana Espinoza PA-C BODY FLUIDS AND STOOLS ORDERABL ES Final Result Performing Organization Address City/[facility]/ZIP Co de Phone Number [address] [address] * Vitamin B12 (07/14/2024 3:48 PM EST) VITAMIN B12 753 232 - 1,245 pg/mL [facility] Blood 07/14/2024 3:48 PM EST 07/14/2024 4:05 PM EST us Milana Espinoza PA-C LAB BLOOD ORDERABLES Final Resu lt Performing Organization Address City/[facility]/ZIP Co de Phone Number [address] [address] * (ABNORMAL) PT-INR (07/14/2024 3:48 PM EST) PT 15.8(H) 10.2 - 12.9 sec [facility] INR 1.4(H) 0.9 - 1.1 [facility] Comment:Therapeutic range fo r oral Vitamin K antagonists: 2.0-3.5 Blood 07/14/2024 3:48 PM EST 07/14/2024 4:05 PM EST us Milana Espinoza PA-C LAB BLOOD ORDERABLES Final Resu lt Performing Organization Address City/[facility]/ZIP Co de Phone Number [address] [address] * Ferritin (07/14/2024 3:48 PM EST) FERRITIN 344 30 - 400 ug/L [facility] Blood 07/14/2024 3:48 PM EST 07/14/2024 4:05 PM EST Milana Espinoza PA-C LAB BLOOD ORDERABLES Final Resu lt Performing Organization Address [facility] Co de Phone Number [address] [address] * (ABNORMAL) Folate (07/14/2024 3:48 PM EST) FOLIC ACID >20.0(H) 4.2 - 19.9 ng/mL [facility] Blood 07/14/2024 3:48 PM EST 07/14/2024 4:05 PM EST Milana Espinoza PA-C LAB BLOOD ORDERABLES Final Resu lt Performing Organization Address [facility] Co de Phone Number [address] [address] * Iron and iron binding capacity (07/14/2024 3:48 PM EST) IRON 155 45 - 160 ug/dL [facility] IRON BINDING CAPACITY 291 228 - 428 ug/dL [facility] TRANSFERRIN SATURAT. 53 20 - 55 % [facility] Blood 07/14/2024 3:48 PM EST 07/14/2024 4:05 PM EST us Milana Espinoza PA-C LAB BLOOD ORDERABLES Final Resu lt [address] [address] * (ABNORMAL) Comprehensive metabolic panel (07/14/2024 3:48 PM EST) SODIUM 142 133 - 146 mmol/L [facility] POTASSIUM 4.0 3.3 - 5.1 mmol/L [facility] CHLORIDE 107 96 - 108 mmol/L [facility] CO2 27 21 - 35 mmol/L [facility] BUN 6 6 - 19 mg/dL [facility] CREATININE 0.40(L) 0.5 - 1.5 mg/dL [facility] GLUCOSE 98 70 - 99 mg/dL [facility] ALBUMIN 3.4(L) 3.9 - 4.8 g/dL [facility] TOTAL PROTEIN 6.4(L) 6.5 - 8.0 g/dL [facility] CALCIUM 8.7 8.4 - 10.3 mg/dL [facility] ALKALINE PHOSPHATASE 70 39 - 117 U/L [facility] TOTAL BILIRUBIN 0.3 0.0 - 1.2 mg/dL [facility] AST 15 0 - 37 U/L [facility] ALT 6 0 - 40 U/L [facility] GLOBULIN 3.0 1 - 4.8 g/dL [facility] EGFR 117 >59 mL/min/1.7 3m2 [facility] Comment:Estimated glomerular filtration rate calculated using the CKD-EPI refit equation. ANION GAP 12 10 - 20 mmol/L [facility] Blood 07/14/2024 3:48 PM EST 07/14/2024 4:05 PM EST us Milana Espinoza PA-C LAB BLOOD ORDERABLES Final Resu lt Performing Organization Address [facility]/ZIP Co de Phone Number [address] [address] * (ABNORMAL) CBC (07/14/2024 3:48 PM EST) WBC 5.90 4.00 - 11.00 K/uL [facility] RBC 4.93 4.50 - 5.90 M/uL [facility] HGB 10.9(L) 13.5 - 17.5 g/dL [facility] HCT 37.3(L) 41.0 - 53.0 % [facility] PLT 321 150 - 450 K/uL [facility] MCV 75.7(L) 80.0 - 100.0 fL [facility] MCH 22.1(L) 27.0 - 31.0 pg [facility] MCHC 29.2(L) 32.0 - 36.0 g/dL [facility] RDW 20.8(H) 11.5 - 14.5 % [facility] MPV 11.0 8.4 - 12.0 [facility] NRBC 0.00 0.00 /100 WBCs [facility] ABSOLUTE NRBC 0.00 0.00 K/uL [facility] Blood 07/14/2024 3:48 PM EST 07/14/2024 4:05 PM EST Milana Espinoza PA-C LAB BLOOD ORDERABLES Final Resu lt Performing Organization Address City/[facility]/ZIP Co de Phone Number [address] [address] * AFP (non-maternal specimens) (07/14/2024 3:48 PM EST) Pathologist [facility] AFP (NON-MATERNAL) <1.8 <7.9 ng/mL [facility] Comment: Test Methodology Laurne [id number] Patient results determined by assays using different manufacturers or methods may not be comparable. Blood 07/14/2024 3:48 PM EST 07/14/2024 4:05 PM EST us Milana Espinoza PA-C LAB BLOOD ORDERABLES Final Resu lt [address] [address] documented in this encounter Visit Diagnoses Diagnosis Anemia, unspecified type- Primary Fatty liver disease, nonalcoholic documented in this encounter Care Teams Tobacco Dipper Relationship Specialty Start Date End Date Bianka Del Valle MD [address] [place] [phone] PCP - General Family Medicine 03/15/24 Rachel Rush PA-C [address] [place] [phone] Physician Doctor Naturopathic Hematology 08/26/23 Jus Diaz MD [address] [place] [phone] Emergency Medicine 02/12/24 documented as of this encounter Additional Source Comments The information contained in this document represents components of the legal health record. It is not the complete legal health record.[facility]
--- OUTSIDE RECORDS SUMMARY | 2025-05-01 14:08 | XMS_ITS | Clinical Summary ---
Author Organization [facility] Address [address] [facility] [address] [place] [phone] Phone Care Team Providers Care Fisher Name Role Phone Rachel Rush PA-C Unavailable [phone] Jus Diaz MD Unavailable [phone] Bianka Del Valle MD Primary Care Provider Allergies No known active allergies Medications acetaminophen (TYLENOL) 650 MG CR tablet Take 650 mg by mouth 3 (three) times a day. 11/02/19 24 Active ELIQUIS 5 mg tablet Take 5 mg by mouth 2 (two) times a day. 11/05/19 24 Active ascorbic acid, vitamin C, (VITAMIN C) 1000 MG tablet Take 1,000 mg by mouth 2 (two) times a day. 11/05/19 24 Active atorvastatin (LIPITOR) 20 MG tablet Take 20 mg by mouth daily. 11/05/19 24 Active BREYNA 160-4.5 mcg/actuation inhaler Inhale 2 puffs into the lungs 2 (two) times a day. 08/13/19 24 Active VITAMIN D3 25 mcg (1,000 unit) capsule Take 1,000 Units by mouth daily. 11/05/19 24 Active clonazePAM (KLONOPIN) 1 MG tablet Take 1 mg by mouth nightly at bedtime. 11/05/19 24 Active cyanocobalamin (VITAMIN B-12) 1,000 mcg/mL injection Inject 1,000 mcg into the muscle every 30 (thirty) days. 10/08/19 24 Active FEROSUL 325 mg (65 mg iron) tablet Take 325 mg by mouth every other day. 11/05/19 Active FLUoxetine (PROZAC) 10 MG capsule Take 10 mg by mouth daily. 11/05/19 24 Active folic acid (FOLVITE) 1 MG tablet Take 1 mg by mouth daily. 11/05/19 Active losartan (COZAAR) 100 MG tablet Take 100 mg by mouth daily. 11/05/19 Active metoprolol succinate (TOPROL-XL) 50 MG 24 hr tablet Take 50 mg by mouth daily. 11/05/19 24 Active pantoprazole (PROTONIX) 40 MG tablet Take 40 mg by mouth 2 (two) times a day. 11/05/19 Active pregabalin (LYRICA) 200 MG capsule Take 200 mg by mouth 2 (two) times a day. 11/05/19 24 Active SENNA 8.6 mg tablet Take 2 tablets by mouth nightly at bedtime. May hold for loose stool 11/05/19 Active tamsulosin (FLOMAX) 0.4 mg Cap Take 0.4 mg by mouth every evening. 11/05/19 24 Active thiamine (VITAMIN B-1) 100 MG tablet Take 100 mg by mouth daily. 11/05/19 24 Active tiZANidine (ZANAFLEX) 4 MG tablet Take 4 mg by mouth 2 (two) times a day. 11/05/19 24 Active DESITIN DAILY DEFENSE 13 % Crea 10/09/19 24 Active tiZANidine (ZANAFLEX) 4 MG tablet Take 8 mg by mouth nightly at bedtime. Active cranberry fruit 400 mg Tab Take 400 mg by mouth daily. Active sodium chloride 3 % nebulizer solution Take 4 mL (120 mg total) by nebulization 2 (two) times a day. 240 mL 11 12/17/19 24 Active nebulizer and compressor Catherine 1 Device by Miscellaneous route 2 (two) times a day. 1 each 04/14/20 24 Active diclofenac sodium (VOLTAREN) 1 % Gel Apply 4 g topically 2 (two) times a day. 06/27/20 24 Active BREO ELLIPTA 200-25 mcg/dose inhaler Inhale 1 puff into the lungs daily. 08/04/19 Active MAGNESIUM HYDROXIDE 400 mg/5 mL suspension Take 240 mg by mouth nightly at bedtime as needed (Bowel protocol; if no BM in 24 hours see step 2). 08/19/19 25 Active glycerin, adult, Supp Place 1 suppository rectally once as needed (Bowel protocol Step 2; If no results from prn milk of magnesia; manufacturing supervisor 2nd shift to give suppository when individual wakes up). [...] 2 (two) times a day with meals. 11/09/19 25 Active olopatadine (PATANOL) 0.1 % ophthalmic solution Place 1 drop into each eye 2 (two) times a day. Active fluticasone propionate (FLONASE) 50 mcg/actuation nasal sprayIndications :Asthma INSTILL 2 SPRAYS INTO EACH NOSTRIL DAILY 16 g 6 12/15/19 25 Active ipratropium-albu teroL (DUONEB) 0.5-3 mg (2.5 mg base)/3 mL nebulizer solutionIndicati ons:Asthmatic bronchitis without complication INHALE THE CONTENTS OF 1 VIAL (3ML) VIA NEBULIZER TWICE DAILY 180 mL 5 03/30/20 25 Active Active Problems Problem Noted Date Diagnosed Date Cigarette smoker 04/13/2025 Asthmatic bronchitis without complication 2024 Hypoxia 12/03/2023 Assessment & Plan (12/04/2023 2:24 PM EDT): Pt with sudden onset SOB on the way to see his manager summer today. jail staff states pt has had a wet cough for over a month and has an upcoming appointment to see Dr. Shelby referred by his PCP. Less likely cardiac etiology pro BNP < 36, trop , EKG no ischemia. PE was considered in [...] COVID negative Wet cough is chronic per intermediate staff plan for HOME HEALTH AIDE CAREGIVER eval r/o dysphagia--negative no signs of asp [...] been compliant with this medication at his intermediate - Eliquis continued on admission Tobacco use [...] Encounters Date Type Department Care Team Description 04/11/2025 12:30 PM EDT - 04/11/2025 11:59 PM EDT Hospital Encounter [facility], Ct Scan - [address] [address] Sin Troncoso MD Discharge Disposition: Home or Self Care 04/06/2025 Transcribe Orders [facility] Rehabilitation Services [address] [place] [address] Bianka Del Valle MD Encounter for rehabilitation (Primary Dx) 03/30/2025 Refill [facility] [address] [place] [address] Sin Troncoso MD Medication Refill 03/16/2025 10:00 AM EDT Office Visit [facility] [address] [place] [address] Sin Troncoso MD Mild intermittent asthmatic bronchitis without complication (Primary Dx); Cigarette smoker 03/16/2025 Procedure Pass [facility], Ct Scan - [address] [address] 03/02/2025 Refill [facility] [address] [place] [address] Sin Troncoso MD Medication Refill 02/02/2025 Refill [facility] [address] [place] [address] Christopher Sue MD Medication Refill (IPRAT-ALBUT 0.5-3(2.5) MG/3 ML) 01/30/2025 Transcribe Orders [facility] [address] [place] [address] Bianka Del Valle MD Encounter for rehabilitation (Primary Dx) from Last 3 Months Immunizations Immunization Administration [...] Height 157.5 cm (5' 2 ) 03/16/2025 9:55 AM EDT Body Mass Index 38.04 11/11/2024 10:15 AM EDT Plan of Treatment Upcoming Encounters Date Type Department Care Team (Late st Contact Info) Description 05/03/2025 4:00 PM EDT Office Visit [address] [address] Bianka Del Valle MD [address] [place] [address] Isbael Schmidt CCC-HOME HEALTH AIDE CAREGIVER [address] [place] [address] 05/10/2025 1:00 PM EST Office Visit [address] [address] Bianka Del Valle MD [address] [place] [address] Isabel Schmidt CCC-HOME HEALTH AIDE CAREGIVER [address] [place] [address] 05/18/2025 11:30 AM EST Office Visit [address] [address] Bianka Del Valle MD [address] [place] [phone] Isabel Schmidt CCC-HOME HEALTH AIDE CAREGIVER [address] [place] [address] 05/24/2025 1:00 PM EST Office Visit [facility] [address] [place] [address] Bianka Del Valle MD [address] [place] [phone] Isabel Schmidt CCC-HOME HEALTH AIDE CAREGIVER [address] [place] [address] 05/29/2025 12:30 PM EST Appointment [facility] [address] [place] [address] Sin Troncoso MD [address] [place] [address] 05/30/2025 11:30 AM EST Office Visit [address] [place] [address] Bianka Del Valle MD [address] [place] [phone] Isabel Schmidt CCC-HOME HEALTH AIDE CAREGIVER [address] [place] [address] 06/07/2025 4:00 PM EST Office Visit [facility] [address] [place] [address] Bianka Del Valle MD [address] [place] [address] Isabel Schmidt CCC-HOME HEALTH AIDE CAREGIVER [address] [place] [address] 06/14/2025 4:00 PM EST Office Visit [facility] [address] [place] [address] Bianka Del Valle MD [address] [place] [address] [email or web address] Isabel Schmidt, [facility]-HOME HEALTH AIDE CAREGIVER [address] [place] [address] [email or web address] Health Maintenance Due Date Last Done Comments LIPID PANEL 1950 DEPRESSION SCREENING 1964 COLOGUARD 1997 FOBT 1997 SIGMOIDOSCOPY 1997 VIRTUAL COLONOSCOPY 1997 RSV VACCINE (1 - Risk 50-74 years 1-dose series) 2002 ABDOMINAL AORTIC ANEURYSM (AAA) SCREENING 2017 INFLUENZA [...] this topic Medical Devices Implanted Type Area Materials Assistant Device Identifier Shelf Expiration Date Model / Serial / Lot Left Ankle Clip Hemostasis 360deg 235cm Resolution 360 Latex Free 2.8mm Channel Bx/20ea - [id number] Implanted:Qty: 2 on 11/16/2023 by Breonna Leggett MD at [facility] [email or web address] 04/19/2026 [id number] / / [id number] Description:Two clips placed gastric body Procedures Procedure Name Priority Date/Time Associated Diagnosis Comments CT CHEST LUNG CANCER SCREENING INITIAL Routine 04/11/2025 12:49 PM EDT Cigarette smoker ENDOSCOPY, COLON 11/14/2024 12:4 5 PM EDT [...] Recently Relevant to Health Maintenance Results * CT CHEST LUNG CANCER SCREENING INITIAL (04/11/2025 12:49 PM EDT) Anatomical Region Laterality Modality Chest Computed Tomogra phy 04/13/2025 10:5 5 PM EDT Impressions 04/13/2025 11:08 PM EDT Calcified granulomas. No suspicious nodules or masses. Multiple paraspinal/pleural-based lesions, indeterminate but stable compared to prior exams. Lung-RADS Category: 1. Negative study, as the identified nodule has benign calcification. RECOMMENDATIONS: Continue Lung-RADS Annual Lung Cancer Screening Chest CT in 12-14 months if patient meets eligibility criteria. Narrative 04/13/2025 11:[address] CHEST LUNG CANCER SCREENING INITIAL Referring clinician's provided indication for this examination in [facility]: Lung Cancer Screening - CURRENT smoker (20+ pk-yrs, age 50-80) - ICD -10 F17.210. TECHNIQUE: Low dose multidetector CT of the chest was performed without intravenous contrast using tailored dose modulation techniques. COMPARISON: CT chest dated December 03, 2023. CT chest dated September 28, 2023. FINDINGS: Devices and lines/tubes: Devices: No devices are identified. Lines/tubes: No lines/tubes are present. Mediastinum: Heterogeneity of the thyroid gland. No nodules. There is no anterior mediastinal mass. There are multiple paraspinal/pleural- based lesions again identified unchanged compared to multiple prior exams. One measures 20 x 39 mm on the right (image 59, series 2). A second measures 21 x 15 mm (image 59). There is a right paraspinal/pleural 39 x 18 mm lesion (image 67, series 2). There is a stable 12 x 19 mm left paraspinal lesion (image 60, series 2). There is a 16 x 31 mm right paravertebral soft tissue lesion (image 78, series 2). No acute esophageal abnormality. The heart is of normal size, demonstrating small pericardial effusion measuring approximately 4 mm. Three-vessel left-sided aortic arch, with mild ectasia measuring up to 4.0 cm (image 56, series 2). Mild coronary artery calcifications are present. Dilatation of the main pulmonary artery measuring 4.0 cm. Lymph Nodes: No enlarged supraclavicular, axillary, mediastinal, or hilar lymph nodes. Lungs: The central airways are patent. No endotracheal masses are identified. There is debris identified within the mainstem bronchi, as well as lower lobe bronchi, with scattered areas of mucus plugging. There is atelectasis within the lower lobes. There is a stable centrilobular emphysematous changes, mild without upper lobe predominance. Scattered granulomas are present. No additional noncalcified nodules or masses are present. Pleura: No pleural effusion or pneumothorax. Upper abdomen: No acute abnormality is detected in the visualized upper abdomen. Absence of intravenous contrast limits sensitivity for detecting solid organ findings. Chest Wall: No chest wall mass. Bones: Multilevel degenerative changes, no suspicious lesions. Spinal curvature convexity to the right. Glenohumeral degenerative changes are present. Procedure Note Nine, Dante Moody MD - 04/13/2025 CT CHEST LUNG CANCER SCREENING INITIAL Referring clinician's provided indication for this examination in [facility]:Lung Cancer Screening - CURRENT smoker (20+ pk-yrs, age 50-80) - ICD -10F17.210. TECHNIQUE: Low dose multidetector CT of the chest was performed withoutintravenous contrast using tailored dose modulation techniques. COMPARISON: CT chest dated December 03, 2023. CT chest dated September 28, 2023. FINDINGS: Devices and lines/tubes: Devices: No devices are identified. Lines/tubes: No lines/tubes are present. Mediastinum: Heterogeneity of the thyroid gland. No nodules. There is no anterior mediastinal mass. There are multipleparaspinal/pleural- based lesions again identified unchanged compared tomultiple prior exams. One measures 20 x 39 mm on the right (image 59,series 2). A second measures 21 x 15 mm (image 59). There is a rightparaspinal/pleural 39 x 18 mm lesion (image 67, series 2). There is astable 12 x 19 mm left paraspinal lesion (image 60, series 2). There is a16 x 31 mm right paravertebral soft tissue lesion (image 78, series 2). Noacute esophageal abnormality. The heart is of normal size, demonstrating small pericardial effusionmeasuring approximately 4 mm. Three-vessel left-sided aortic arch, withmild ectasia measuring up to 4.0 cm (image 56, series 2). Mild coronaryartery calcifications are present. Dilatation of the main pulmonary arterymeasuring 4.0 cm. Lymph Nodes: No enlarged supraclavicular, axillary, mediastinal, or hilarlymph nodes. Lungs: The central airways are patent. No endotracheal masses areidentified. There is debris identified within the mainstem bronchi, aswell as lower lobe bronchi, with scattered areas of mucus plugging. Thereis atelectasis within the lower lobes. There is a stable centrilobularemphysematous changes, mild without upper lobe predominance. Scatteredgranulomas are present. No additional noncalcified nodules or masses arepresent. Pleura: No pleural effusion or pneumothorax. Upper abdomen: No acute abnormality is detected in the visualized upperabdomen. Absence of intravenous contrast limits sensitivity for detectingsolid organ findings. Chest Wall: No chest wall mass. Bones: Multilevel degenerative changes, no suspicious lesions. Spinalcurvature convexity to the right. Glenohumeral degenerative changes arepresent. IMPRESSION: Calcified granulomas. No suspicious nodules or masses. Multiple paraspinal/pleural-based lesions, indeterminate but stablecompared to prior exams. Lung-RADS Category: 1. Negative study, as the identified nodule has benigncalcification. RECOMMENDATIONS: Continue Lung-RADS Annual Lung Cancer Screening Chest CT in 12-14 monthsif patient meets eligibility criteria. Sin Troncoso MD IMG CT CHEST Final Result * ENDOSCOPY, COLON (11/14/2024 12:45 PM EDT) Narrative Transcriptions Breonna Leggett MD - 11/14/2024 12:45 PM EDT [facility] Patient Name: Randal Arthur Attending MD:: BREONNA LEGGETT MD, Procedure Date: 11/14/2024 12:45 PM Date of : 1950 Age: 73 Admit Type: Outpatient Gender: Male Room: [place] [address] Referring MD: Bianka Del Valle Exam Type: [...] monitored continuously. The Olympus adult variable colonoscope [id number] #1 was introduced through the anus and [...] 12:45 PM Procedure Code(s): --- Professional --- 21128, Colonoscopy, flexible; with removal of tumor(s), polyp(s), or other lesion(s) by snare technique --- Technical --- 14417, Colonoscopy, flexible; with removal of tumor(s), polyp(s), or other lesion(s) by snare technique CPT copyright 2021 [employer]. All rights reserved. The codes documented in this report are preliminary and upon fire ranger reviewmay be revised to meet current compliance requirements. Procedure Date: 11/14/2024 12:45:[address] [place] [address] Bianka Del Valle MD GI PROCEDURE ORDERABLES Janeth l Result * (ABNORMAL) Fecal immunochemical test x1 (FIT) (07/23/2024 9:00 AM EST) Pathologist [facility] Immuno Fecal Occult Positive(A ) Negative [facility] Stool (Stool) 07/23/2024 9:0 0 AM EST 07/25/2024 2:24 PM EST Milana Espinoza PA-C BODY FLUIDS AND STOOLS ORDERABL ES Final Result [address] [address] * (ABNORMAL) Comprehensive metabolic panel (07/14/2024 3:48 PM EST) Pathologist [facility] SODIUM 142 133 - 146 mmol/L [facility] POTASSIUM 4.0 3.3 - 5.1 mmol/L [facility] CHLORIDE 107 96 - 108 mmol/L [facility] CO2 27 21 - 35 mmol/L [facility] BUN 6 6 - 19 mg/dL [facility] CREATININE 0.40(L) 0.5 - 1.5 mg/dL [facility] GLUCOSE 98 70 - 99 mg/dL [facility] ALBUMIN 3.4(L) 3.9 - 4.8 g/dL [facility] TOTAL PROTEIN 6.4(L) 6.5 - 8.0 g/dL [facility] CALCIUM 8.7 8.4 - 10.3 mg/dL [facility] ALKALINE PHOSPHATASE 70 39 - 117 U/L [facility] TOTAL BILIRUBIN 0.3 0.0 - 1.2 mg/dL [facility] AST 15 0 - 37 U/L [facility] ALT 6 0 - 40 U/L [facility] GLOBULIN 3.0 1 - 4.8 g/dL [facility] EGFR 117 >59 mL/min/1.7 3m2 [facility] Comment:Estimated glomerular filtration rate calculated using the CKD-EPI refit equation. ANION GAP 12 10 - 20 mmol/L [facility] Blood 07/14/2024 3:48 PM EST 07/14/2024 4:05 PM EST us Milana Espinoza PA-C LAB BLOOD ORDERABLES Final Resu lt [address] [address] * Hepatitis C antibody, qualitative (04/07/2024 4:22 PM EDT) HCV NON-REACTIV E NON-REACTI VE [facility] Blood 04/07/2024 4:22 PM EDT 04/07/2024 4:36 PM EDT Milana Espinoza PA-C LAB BLOOD ORDERABLES Final Resu lt Performing Organization Address City/[facility]/ZIP Co de Phone Number [address] [address] from Last 3 Months or Most Recently Relevant to Health Maintenance Insurance [facility] [facility] MEDICARE REPLACEMENT [place] [facility] MEDIC[facility]AC[place] [facility] [facility] [place] [facility] [place] [facility] [place] Advance Directives For more information, please contact: [phone] (9AM - 5PM [place], Thursday-Thursday) * Full Code (Latest Code Status on File) Date Activated Date Inactivated Comments 12/03/2023 5:20 PM Question Answer Comments Code Status Confirmed With: Patient Care Teams Fisher Relationship Specialty Start Date End Date Bianka Del Valle MD [address] [place] [phone] [email or web address] PCP - General Family Medicine 03/15/24 Rachel Rush PA-C [address] [place] [phone] Physician Build And Release Manager Hematology 08/26/23 Jus Diaz MD [address] [place] [phone] [email or web address] Emergency Medicine 02/12/24 Additional Source Comments The information contained in this document represents components of the legal health record. It is not the complete legal health record.[facility]
--- OUTSIDE RECORDS SUMMARY | 2025-05-01 14:08 | XMS_ITS | Encounter Summary ---
Author Organization [facility] Address [address] [facility] [address] [place] [phone] Phone Care Team Providers Care Roving Inspector Name Role Phone Bianka Del Valle MD Primary Care Provider Rachel Rush PA-C Unavailable [phone] Jus Diaz MD Unavailable [phone] Bianka Del Valle MD Primary Care Provider Encounter Details Date Type Department Care Team (Late st Contact Info) Description 12/03/2023 Procedure Pass [facility], Ct Scan - [address] [id number] Social History Tobacco Use Types Packs/Day Years [...] Risk Indicated 12/03/2023 12:07 PM EDT Karin Snowden, DESTINEE * [place] Suicide Severity Rating Scale (Screener/Recent Self-Report) Question [...] Description 05/03/2025 4:00 PM EDT Office Visit [address] [address] Bianka Del Valle MD [address] [place] [address] Isabel Schmidt, [facility] TECHNICIAN HEARING [address] [place] [phone] 05/10/2025 1:00 PM EST Office Visit [address] [address] Bianka Del Valle MD [address] [place] [address] Isabel Schmidt, CCC-HEALTH TECHNICIAN HEARING [address] [place] [address] 05/18/2025 11:30 AM EST Office Visit [address] [address] Bianka Del Valle MD [address] [place] [phone] Isabel Schmidt CCC-HEALTH TECHNICIAN HEARING [address] [place] [address] 05/24/2025 1:00 PM EST Office Visit [address] [address] Bianka Del Valle MD [address] [place] [phone] Isabel Schmidt CCC-HEALTH TECHNICIAN HEARING [address] [place] [address] 05/29/2025 12:30 PM EST Appointment [facility] [address] [place] [phone] Sin Troncoso MD [address] [place] [phone] 05/30/2025 11:30 AM EST Office Visit [address] [address] Bianka Del Valle MD [address] [place] [phone] Isabel Schmidt CCC-HEALTH TECHNICIAN HEARING [address] [place] [address] 06/07/2025 4:00 PM EST Office Visit [address] [address] Bianka Del Valle MD [address] [place] [phone] Isabel Schmidt CCC-HEALTH TECHNICIAN HEARING [address] [place] [phone] 06/14/2025 4:00 PM EST Office Visit [address] [address] Bianka Del Valle MD [address] [place] [address] Isabel Schmidt, CCC-HEALTH TECHNICIAN HEARING [address] [place] [phone] documented as of this encounter Visit Diagnoses Not on filedocumented in this encounter Additional Health Concerns Infection Onset Date Last Indicated Resolved Time CoV-Risk 12/03/2023 12/03/2023 12/14/2023 1:24 AM EDT CDiff-Risk 12/03/2023 12/03/2023 12/04/2023 1:00 AM EDT CDiff-Risk 12/10/2023 12/10/2023 12/17/2023 1:21 AM EDT documented as of this encounter Care Teams Roving Inspector Relationship Specialty Start Date End Date Bianka Del Valle MD PCP - General Family Medicine 08/26/23 03/14/24 Bianka Del Valle MD [address] [place] [address] [email or web address] PCP - General Family Medicine 03/15/24 Rachel Rush PA-C [address] [place] [phone] [email or web address] Physician Patrol Inspector Hematology 08/26/23 Jus Diaz MD [address] [place] [phone] [email or web address] Emergency Medicine 02/12/24 documented as of this encounter Additional Source Comments The information contained in this document represents components of the legal health record. It is not the complete legal health record.[facility]
--- OUTSIDE RECORDS SUMMARY | 2025-05-01 14:08 | XMS_ITS | Encounter Summary ---
Author Organization [facility] Address [address] [facility] [address] [place] [address] Phone Care Team Providers Care Community Service Worker Name Role Phone Bianka Del Valle MD Primary Care Provider Rachel Rush PA-C Unavailable [phone] Jus Diaz MD Unavailable [phone] Bianka Del Valle MD Primary Care Provider Reason for Referral * Molecular Pathology - Closed Specialty Diagnoses / Procedures Referred By Iza mcpherson Referred To Contact Diagnoses Need for hepatitis C screening test Anemia, unspecified type Change in bowel habits Procedures Hemochromatosis Gene Analysis Milana Espinoza PA-C Phone: tel: fax: [email or web address] Referral ID Status Reason Start Date Expiration Date Visits Re quested Visits Authorized [id number] Closed 12/10/2023 12/09/2024 1 1 Encounter Details Date Type Department Care Team (Latest Contact Info) Description 12/10/2023 Transcribe Orders [facility] Laboratory [address] [place] [address] Milana Espinoza PA-C [address] [place] [address] [email or web address] Need for hepatitis C screening test (Primary [...] Description 05/03/2025 4:00 PM EDT Office Visit [facility] [address] [place] [address] Bianka Del Valle MD [address] [place] [address] [email or web address] Isabel Schmidt, CCC-INTERVENTIONAL NEURORADIOLOGIST 8 [place] [address] 05/10/2025 1:00 PM EST Office Visit [facility] 8 [place] [address] Bianka Del Valle MD [address] [place] [address] Isabel Schmidt CCC-INTERVENTIONAL NEURORADIOLOGIST 8 [place] [address] 05/18/2025 11:30 AM EST Office Visit [address] [address] Bianka Del Valle MD [address] [place] [address] Isabel Schmidt CCC-INTERVENTIONAL NEURORADIOLOGIST 8 [place] [address] 05/24/2025 1:00 PM EST Office Visit [address] [address] Bianka Del Valle MD [address] [place] [address] Isabel Schmidt CCC-INTERVENTIONAL NEURORADIOLOGIST 8 [place] [address] 05/29/2025 12:30 PM EST Appointment [facility] 30 [place] [address] Sin Troncoso MD [address] [place] [address] 05/30/2025 11:30 AM EST Office Visit [facility] [address] [place] [address] Bianka Del Valle MD [address] [place] [address] Isabel Schmidt CCC-INTERVENTIONAL NEURORADIOLOGIST 8 [place] [address] 06/07/2025 4:00 PM EST Office Visit [facility] 8 [place] [address] Bianka Del Valle MD [address] [place] [address] Isabel Schmidt CCC-INTERVENTIONAL NEURORADIOLOGIST 8 [place] [address] 06/14/2025 4:00 PM EST Office Visit [facility] 8 [place] [address] Bianka Del Valle MD [address] [place] [address] Isabel Schmidt CCC-INTERVENTIONAL NEURORADIOLOGIST 8 [place] [address] documented as of this encounter Results * Hepatitis C antibody, qualitative (04/07/2024 4:22 PM EDT) HCV NON-REACTIV E NON-REACTI VE [facility] Blood 04/07/2024 4:22 PM EDT 04/07/2024 4:36 PM EDT us Milana Espinoza PA-C LAB BLOOD ORDERABLES Final Resu lt [address] [address] * Hepatitis B surface antigen (04/07/2024 4:22 PM EDT) HBV SURFACE ANTIGEN NON-REACTI VE NON-REACTI VE [facility] Blood 04/07/2024 4:22 PM EDT 04/07/2024 4:36 PM EDT Milana Espinoza PA-C LAB BLOOD ORDERABLES Final Resu lt Performing Organization Address City/[facility] Co de Phone Number [address] [address] * Ova and parasites, stool (01/08/2024 8:00 AM EDT) Parasitic exam FINAL 4 1450 [facility] DPT OF LAB MED AND PAT+ Comment: (NOTE) SOURCE: STOOL, STLP OVA AND PARASITE, MICROSCOPY, F FINAL No parasites seen. Cryptosporidium, Cyclospora, and microsporidia are not readily detected by this method. Single negative specimen does not rule out parasitic infection. Stool (Stool) 01/08/2024 8:0 0 AM EDT 01/11/2024 12:44 PM EDT us Milana Espinoza PA-C MICROBIOLOGY - GENERAL ORDERABL ES Final Result Performing Organization Address City/[facility]/ZIP Co de Phone Number [facility] DPT OF LAB MED AND PAT+ [address] [place] [address] * Ova and parasites, stool (01/07/2024 8:30 AM EDT) Parasitic exam FINAL 4 1440 [facility] DPT OF LAB MED AND PAT+ Comment: [...] ORDERABL ES Final Result Performing Organization Address City/[facility]/ZIP Co de Phone Number [facility] DPT OF LAB MED AND PAT+ [address] [place] [address] * Ova and parasites, stool (01/05/2024 9:00 AM EDT) Parasitic exam FINAL 4 1432 [facility] DPT OF LAB MED AND PAT+ Comment: [...] ORDERABL ES Final Result Performing Organization Address [facility] Co de Phone Number [facility] DPT OF LAB MED AND PAT+ [address] [place] [address] * (ABNORMAL) PT-INR (12/10/2023 11:40 AM EDT) Pathologist [facility] PT 17.7(H) 10.2 - 12.9 sec [facility] INR 1.6(H) 0.9 - 1.1 [facility] Comment:Therapeutic range fo r oral Vitamin K antagonists: 2.0-3.5 Blood 12/10/2023 11:4 0 AM EDT 12/10/2023 11:48 AM EDT Milana Espinoza PA-C LAB BLOOD ORDERABLES Final Resu lt [facility] [address] [place] [address] * Ferritin (12/10/2023 11:40 AM EDT) FERRITIN 45 30 - 400 ug/L [facility] Blood 12/10/2023 11:4 0 AM EDT 12/10/2023 11:48 AM EDT Milana Espinoza PA-C LAB BLOOD ORDERABLES Final Resu lt [facility] [address] [place] [address] * (ABNORMAL) Monoclonal protein study, serum (12/10/2023 11:40 AM EDT) Pathologist [facility] M-protein GK Test component not applicable or not reported. g/dL [facility] M-protein GL Test component not applicable or not reported. g/dL [facility] DR M-protein AK Test component not applicable or not reported. g/dL [facility] DR M-protein AL Test component not applicable or not reported. g/dL [facility] DR M-protein MK Test component not applicable or not reported. g/dL [facility] DR M-protein ML Test component not applicable or not reported. g/dL [facility] DR Glycosylation Test component not applicable or not reported. [facility] Flag, M-protein Isotype Negative Negative [facility] QMPTS Interpretation No monoclonal protein detected. [facility] Comment: (NOTE) ADDITIONAL INFORMATION The submitted sample was assayed by five separate immunopurifications for IgG, IgA, IgM, kappa and lambda. The result reflects the findings of either no monoclonal protein detected or those monoclonal immunoglobulins that were detected. This test was developed and its performance characteristics determined by [facility] in a manner consistent with CLIA requirements. This test has not been cleared or approved by the U.S. Food and Drug Administration. IgA 400(H) 61 - 356 mg/dL [facility] IgM 33(L) 37 - 286 mg/dL [facility] IgG 1,330 767 - 1,590 mg/dL [facility] Therapeutic Antibody Administered? Unknown [facility] Blood 12/10/2023 11:4 0 AM EDT 12/10/2023 11:48 AM EDT Milana Espinoza PA-C LAB BLOOD ORDERABLES Final Resu lt [facility] [address] [place] [address] * TSH (12/10/2023 11:40 AM EDT) TSH 1.62 0.27 - 4.20 uIU/mL [facility] Blood 12/10/2023 11:4 0 AM EDT 12/10/2023 11:48 AM EDT Milana Espinoza PA-C LAB BLOOD ORDERABLES Final Resu lt Performing Organization Address [facility] Co de Phone Number [address] [address] * (ABNORMAL) Iron and iron binding capacity (12/10/2023 11:40 AM EDT) IRON 262(H) 45 - 160 ug/dL [facility] IRON BINDING CAPACITY NOT CALCULATED 228 - 428 ug/dL [facility] TRANSFERRIN SATURAT. NOT CALCULATED 20 - 55 % [facility] Blood 12/10/2023 11:4 0 AM EDT 12/10/2023 11:48 AM EDT Milana Espinoza PA-C LAB BLOOD ORDERABLES Final Resu lt Performing Organization Address City/[facility] Co de Phone Number [address] [address] * Lipase (12/10/2023 11:40 AM EDT) LIPASE 27 16 - 63 U/L [facility] Blood 12/10/2023 11:4 0 AM EDT 12/10/2023 11:48 AM EDT us Milana Espinoza PA-C LAB BLOOD ORDERABLES Final Resu lt [facility] [address] [place] [address] * Hemochromatosis Gene Analysis (12/10/2023 11:40 AM EDT) [facility] HFE Gene analysis SEE NOTE 08:46 AM [facility] DPT OF LAB MED AND PAT+ Comment: [...] ADDITIONAL INFORMATION An online research opportunity called [employer] ([email or web address]), a project of [employer], is available for the recipient of this genetic test. This patient registry collects de-identified genetic and health information to advance the knowledge of genetic variants. [facility] is a collaborator of [employer]. This may not be applicable for all [...] allogenic donors will interfere with testing. Call [facility] for instructions for testing patients [...] developed and its performance characteristics determined by [facility] in a manner consistent with CLIA [...] PA-C LAB BLOOD ORDERABLES Final Resu lt [facility] DPT OF LAB MED AND PAT+ [address] [place] [address] * (ABNORMAL) Comprehensive metabolic panel (12/10/2023 11:40 AM EDT) SODIUM 144 133 - 146 mmol/L [facility] POTASSIUM 4.1 3.3 - 5.1 mmol/L [facility] CHLORIDE 107 96 - 108 mmol/L [facility] CO2 28 21 - 35 mmol/L [facility] BUN 9 6 - 19 mg/dL [facility] CREATININE 0.40(L) 0.5 - 1.5 mg/dL [facility] GLUCOSE 111(H) 70 - 99 mg/dL [facility] ALBUMIN 3.4(L) 3.9 - 4.8 g/dL [facility] TOTAL PROTEIN 6.2(L) 6.5 - 8.0 g/dL [facility] CALCIUM 8.6 8.4 - 10.3 mg/dL [facility] ALKALINE PHOSPHATASE 61 39 - 117 U/L [facility] TOTAL BILIRUBIN 0.3 0.0 - 1.2 mg/dL [facility] AST 19 0 - 37 U/L [facility] ALT 15 0 - 40 U/L [facility] GLOBULIN 2.8 1 - 4.8 g/dL [facility] EGFR 117 >59 mL/min/1.7 3m2 [facility] Comment:Estimated glomerular filtration rate calculated using the CKD-EPI refit equation. ANION GAP 13 10 - 20 mmol/L [facility] Blood 12/10/2023 11:4 0 AM EDT 12/10/2023 11:48 AM EDT us Milana Espinoza PA-C LAB BLOOD ORDERABLES Final Resu lt Performing Organization Address City/State/[facility] Co de Phone Number [facility] [address] [place] [address] * (ABNORMAL) CBC (12/10/2023 11:40 AM EDT) WBC 6.12 4.00 - 11.00 K/uL [facility] RBC 4.52 3.90 - 5.69 M/uL [facility] HGB 9.9(L) 12.4 - 17.3 g/dL [facility] HCT 35.2(L) 37.0 - 51.0 % [facility] PLT 424 140 - 430 K/uL [facility] MCV 77.9(L) 78.0 - 97.0 fL [facility] MCH 21.9(L) 25.0 - 33.0 pg [facility] MCHC 28.1(L) 32.0 - 36.0 g/dL [facility] RDW 22.2(H) 11.0 - 15.0 % [facility] MPV 9.9 8.4 - 12.8 fl [facility] Blood 12/10/2023 11:4 0 AM EDT 12/10/2023 11:48 AM EDT us Milana Espinoza PA-C LAB BLOOD ORDERABLES Final Resu lt Performing Organization Address City/[facility]/ZIP Co de Phone Number [address] [address] * Smooth Muscle Antibody (12/10/2023 11:40 AM EDT) SMOOTH MUSCLE AB POSITIVE AT 1:20 [facility] Comment: Performing Physician, Bradley Tidwell M.D., [id number] Normal: Negative at 1:20 Blood 12/10/2023 11:4 0 AM EDT 12/10/2023 11:49 AM EDT us Milana Espinoza PA-C LAB BLOOD ORDERABLES Final Resu lt Performing Organization Address City/[facility]/ZIP Co de Phone Number [address] [address] * Antinuclear antibody (LEIDY) (12/10/2023 11:40 AM EDT) LEIDY SCREEN ON HEP 2 Negative Negative [facility] Blood 12/10/2023 11:4 0 AM EDT 12/10/2023 11:48 AM EDT us Milana LOPEZ-Chemo LAB BLOOD ORDERABLES Final Resu lt Performing Organization Address City/[facility] Co de Phone Number [address] [address] * Anti-Mitochondrial Antibody (AMA) (12/10/2023 11:40 AM EDT) MITOCHONDRIAL AB NEGATIVE AT 1:20 [facility] Comment: Performing PhysicianBradley M.D., [id number] Normal: Negative at 1:20 Blood 12/10/2023 11:4 0 AM EDT 12/10/2023 11:49 AM EDT Milana LOPEZ-Chemo LAB BLOOD ORDERABLES Final Resu lt Performing Organization Address City/[facility]/ZIP Co de Phone Number [facility] [address] [place] [address] * AFP (non-maternal specimens) (12/10/2023 11:40 AM EDT) Pathologist [facility] AFP (NON-MATERNAL) <1.8 <7.9 ng/mL [facility] Comment: Test Methodology Lauren e801 Patient results determined by assays using different manufacturers or methods may not be comparable. Blood 12/10/2023 11:4 0 AM EDT 12/10/2023 11:48 AM EDT Milana LOPEZ-Chemo LAB BLOOD ORDERABLES Final Resu Performing Organization Address [facility] de Phone Number [facility] [address] [place] [address] * Xudmz-7-eqqymlearjp phenotyping (12/10/2023 11:40 AM EDT) Pathologist [facility] ALPHA 1 ANTITRYPSIN 159 100 - 190 mg/dL [facility] Comment: (NOTE) ADDITIONAL INFORMATION Method: Nephelometry A1A PHENOTYPE IM bands [facility] [address] Comment: (NOTE) Heterozygous for I and M isoforms. This phenotype is usually associated with normal sfxaw-0-rczfsharink concentrations. ADDITIONAL INFORMATION Method: Isoelectric Focusing, This assay identifies the phenotype of the circulating orjzh-6-mqwbifyfswt (A1A) protein. If the patient is on replacement therapy or has been recently transfused, the phenotype will detect patient and replacement or transfused plasma A1A protein. This test also cannot detect a null allele which could be responsible for an A1A deficiency. Blood 12/10/2023 11:4 0 AM EDT 12/10/2023 11:48 AM EDT us Milana Espinoza PA-C LAB BLOOD ORDERABLES Final Resu lt [facility] [address] [place] [address] documented in this encounter Visit Diagnoses Diagnosis [...] documented as of this encounter Care Teams Community Service Worker Relationship Specialty Start Date End Date Bianka Del Valle MD [email or web address] PCP - General Family Medicine 08/26/23 03/14/24 Bianka Del Valle MD [address] [place] [address] PCP - General Family Medicine 03/15/24 Rachel Rush PA-C [address] [place] [address] [email or web address] Physician Home Supervisor Hematology 08/26/23 Jus Diaz MD [address] [place] [address] Emergency Medicine 02/12/24 documented as of this encounter Additional Source Comments The information contained in this document represents components of the legal health record. It is not the complete legal health record.[facility]
--- OUTSIDE RECORDS SUMMARY | 2025-05-01 14:08 | XMS_ITS | Encounter Summary ---
Author Organization [facility] Address [address] [facility] [address] [place] [address] Phone Care Team Providers Care Housing Grant Analyst Name Role Phone Rachel Rush PA-C Unavailable [phone] Jus Diaz MD Unavailable Bianka Del Valle MD Primary Care Provider [phone] Encounter Details Date Type Department Care Team (Late st Contact Info) Description 11/14/2024 Procedure Pass [facility] Endoscopy Admitting Dept Virtual Department [address] [place] [address] Social History Tobacco Use Types Packs/Day Years [...] Description 05/03/2025 4:00 PM EDT Office Visit [address] [address] Bianka Del Valle MD [address] [place] [address] Isabel Schmidt CCC-RESIDENTIAL CARPENTER [address] [place] [address] [email or web address] 05/10/2025 1:00 PM EST Office Visit [address] [address] Bianka Del Valle MD [address] [place] [address] Isabel Schmidt CCC-RESIDENTIAL CARPENTER 8 [place] [address] 05/18/2025 11:30 AM EST Office Visit [address] [address] Bianka Del Valle MD [address] [place] [address] Isabel Schmidt CCC-RESIDENTIAL CARPENTER [address] [place] [address] 05/24/2025 1:00 PM EST Office Visit [address] [place] [address] Bianka Del Valle MD [address] [place] [address] Isabel Schmidt CCC-RESIDENTIAL CARPENTER [address] [place] [address] 05/29/2025 12:30 PM EST Appointment [facility] [address] [place] [address] Sin Troncoso MD [address] [place] [address] 05/30/2025 11:30 AM EST Office Visit [address] [address] Bianka Del Valle MD [address] [place] [address] Isabel Schmidt CCC-RESIDENTIAL CARPENTER [address] [place] [address] 06/07/2025 4:00 PM EST Office Visit [address] [address] Bianka Del Valle MD [address] [place] [address] Isabel Schmidt CCC-RESIDENTIAL CARPENTER [address] [place] [address] 06/14/2025 4:00 PM EST Office Visit [facility] 8 [place] [address] Bianka Del Valle MD [address] [place] [address] Isabel Schmidt, [facility]-RESIDENTIAL CARPENTER 8 [place] [address] documented as of this encounter Visit Diagnoses Not on filedocumented in this encounter Care Teams Housing Grant Analyst Relationship Specialty Start Date End Date Bianka Del Valle MD [address] [place] [address] PCP - General Family Medicine 03/15/24 Rachel Rush PA-C [address] [place] [address] Physician Battery Container Tester Aluminum Hematology 08/26/23 Jus Diaz MD [address] [place] [address] Emergency Medicine 02/12/24 documented as of this encounter Additional Source Comments The information contained in this document represents components of the legal health record. It is not the complete legal health record.[facility]
--- OUTSIDE RECORDS SUMMARY | 2025-05-01 14:08 | XMS_ITS | Encounter Summary ---
Author Organization [facility] Address [address] [address] Phone Care Team Providers Care Vp Sales Name Role Phone Rachel Rush PA-C Unavailable Jus Diaz MD Unavailable Bianka Del Valle MD Primary Care Provider [phone] Reason for Visit * Reason Comments Medication Refill Encounter Details Date Type Department Care Team (Late st Contact Info) Description 03/30/2025 Refill [facility] Pulmonary, Allergy and Critical Care Medicine 10 [place] [address] Sin Troncoso MD [address] [place], [place] [phone] Medication Refill Social History Tobacco Use Types [...] Description 05/03/2025 4:00 PM EDT Office Visit [facility] [address] [place] [address] Bianka Del Valle MD [address] [place] [address] Isabel Schmidt CCC-ENRICHMENT ASSISTANT [address] [place] [address] 05/10/2025 1:00 PM EST Office Visit [address] [address] Bianka Del Valle MD [address] [place] [address] Isabel Schmidt CCC-ENRICHMENT ASSISTANT [address] [place] [address] 05/18/2025 11:30 AM EST Office Visit [address] [address] Bianka Del Valle MD [address] [place] [address] Isabel Schmidt CCC-ENRICHMENT ASSISTANT [address] [place] [address] 05/24/2025 1:00 PM EST Office Visit [facility] 8 [place] [address] Bianka Del Valle MD [address] [place] [address] Isabel Schmidt CCC-ENRICHMENT ASSISTANT 8 [place] [address] 05/29/2025 12:30 PM EST Appointment [facility] 30 [place] [address] Sin Troncoso MD [address] [place] [address] 05/30/2025 11:30 AM EST Office Visit [address] [address] Bianka Del Valle MD [address] [place] [address] Isabel Schmidt CCC-ENRICHMENT ASSISTANT [address] [place] [address] 06/07/2025 4:00 PM EST Office Visit [address] [address] Bianka Del Valle MD [address] [place] [address] Isabel Schmidt CCC-ENRICHMENT ASSISTANT [address] [place] [address] 06/14/2025 4:00 PM EST Office Visit [address] [address] Bianka Del Valle MD [address] [place] [address] Isabel Schmidt CCC-ENRICHMENT ASSISTANT [address] [place] [address] documented as of this encounter Visit Diagnoses Diagnosis Asthmatic bronchitis without complication documented in this encounter Care Teams Vp Sales Relationship Specialty Start Date End Date Bianka Del Valle MD [address] [place] [address] PCP - General Family Medicine 03/15/24 Rachel Rush PA-C [address] [place] [phone] [email or web address] Physician Rig Operator Hematology 08/26/23 Jus Diaz MD [address] [place] [address] [email or web address] Emergency Medicine 02/12/24 documented as of this encounter Additional Source Comments The information contained in this document represents components of the legal health record. It is not the complete legal health record.[facility]
--- OUTSIDE RECORDS SUMMARY | 2025-05-01 14:08 | XMS_ITS | Encounter Summary ---
Author Organization [facility] Address [address] [place] [phone] Phone Care Team Providers Care Sandstone Splitter Name Role Phone Rachel Rush PA-C Unavailable Jus Diaz MD Unavailable Bainka Del Valle MD Primary Care Provider [phone] Encounter Details Date Type Department Care Team (Late st Contact Info) Description 12/20/2024 Transcribe Orders Virtual Department 30 [place] [address] Gregor Byrd MD [address] [place] [address] [phone] [email or web address] Social History Tobacco Use Types Packs/Day Years [...] 05/03/2025 4:00 PM EDT Office Visit [address] [place] [address] Bianka Del Valle MD [address] [place] [phone] Isabel Schmidt [facility]SISTANT MEDIA BUYER [address] [place] [address] 05/10/2025 1:00 PM EST Office Visit [address] [place] [address] Bianka Del Valle MD [address] [place] [address] Isabel Schmidt CCC-ASSISTANT MEDIA BUYER [address] [place] [address] 05/18/2025 11:30 AM EST Office Visit [address] [place] [address] Bianka Del Valle MD [address] [place] [phone] Isabel Schmidt, CCC-ASSISTANT MEDIA BUYER [address] [place] [address] 05/24/2025 1:00 PM EST Office Visit [address] [address] Bianka Del Valle MD [address] [place] [address] Isabel Schmidt CCC-ASSISTANT MEDIA BUYER [address] [place] [address] 05/29/2025 12:30 PM EST Appointment [facility] [address] [place] [phone] Sin Troncoso MD [address] [place] [phone] 05/30/2025 11:30 AM EST Office Visit [address] [address] Bianka Del Valle MD [address] [place] [phone] Isabel Schmidt CCC-ASSISTANT MEDIA BUYER [address] [place] [address] 06/07/2025 4:00 PM EST Office Visit [address] [address] Bianka Del Valle MD [address] [place] [phone] Isabel Schmidt CCC-ASSISTANT MEDIA BUYER 8 [place] [address] 06/14/2025 4:00 PM EST Office Visit [facility] 8 [place] [address] Bianka Del Valle MD 70 [place] [address] Isabel Schmidt CCC-ASSISTANT MEDIA BUYER 8 [place] [address] documented as of this encounter Visit Diagnoses Not on filedocumented in this encounter Care Teams Sandstone Splitter Relationship Specialty Start Date End Date Bianka Del Valle MD [address] [place] [phone] PCP - General Family Medicine 03/15/24 Rachel Rush PA-C [address] [place] [address] Physician Asphalt Heater Operator Hematology 08/26/23 Jus Diaz MD [address] [place] [phone] Emergency Medicine 02/12/24 documented as of this encounter Additional Source Comments The information contained in this document represents components of the legal health record. It is not the complete legal health record.[facility]
--- OUTSIDE RECORDS SUMMARY | 2025-05-01 14:08 | XMS_ITS | Encounter Summary ---
Author Organization [facility] Address [address] [facility] [address] [place] [address] Phone Care Team Providers Care Vanstone Machine Operator Name Role Phone Bianka Del Valle MD Primary Care Provider Rachel Rush PA-C Unavailable [phone] Jus Diaz MD Unavailable [phone] Bianka Del Valle MD Primary Care Provider [phone] Encounter Details Date Type Department Care Team (Latest Contact Info) Description 12/10/2023 Transcribe Orders Virtual Department 30 [place] [address] Milana Espinoza PA-C [address] [place], [place] [phone] [email or web address] Anemia, unspecified type (Primary Dx); Change in [...] Description 05/03/2025 4:00 PM EDT Office Visit [address] [address] Bianka Del Valle MD [address] [place] [phone] Isabel Schmidt CCC-STREETS AND BUILDINGS DECORATOR 8 [place] [address] 05/10/2025 1:00 PM EST Office Visit [address] [address] Bianka Del Valle MD [address] [place] [phone] Isabel Schmidt CCC-STREETS AND BUILDINGS DECORATOR 8 [place] [address] 05/18/2025 11:30 AM EST Office Visit [facility] 8 [place] [address] Bianka Del Valle MD [address] [place] [phone] Isabel Schmidt CCC-STREETS AND BUILDINGS DECORATOR 8 [place] [address] 05/24/2025 1:00 PM EST Office Visit [facility] 8 [place] [address] Bianka Del Valle MD [address] [place] [phone] Isabel Schmidt CCC-STREETS AND BUILDINGS DECORATOR 8 [place] [address] 05/29/2025 12:30 PM EST Appointment [facility] [address] [place] [phone] Sin Troncoso MD [address] [place] [address] 05/30/2025 11:30 AM EST Office Visit [facility] [address] [place] [address] Bianka Del Valle MD [address] [place] [phone] Isabel Schmidt CCC-STREETS AND BUILDINGS DECORATOR 8 [place] [address] 06/07/2025 4:00 PM EST Office Visit [facility] [address] [place] [address] Bianka Del Valle MD [address] [place] [address] Isabel Schmidt CCC-STREETS AND BUILDINGS DECORATOR 8 [place] [address] 06/14/2025 4:00 PM EST Office Visit [facility] [address] [place] [address] Bianka Del Valle MD [address] [place] [address] Isabel Schmidt CCC-STREETS AND BUILDINGS DECORATOR 8 [place] [address] [email or web address] documented as of this encounter Results * US ABDOMEN LIMITED RIGHT UPPER QUADRANT (12/22/2023 10:52 AM EDT) Anatomical Region Laterality Modality Abdomen Ultrasound 12/22/2023 7:39 PM EDT Impressions 12/23/2023 5:25 AM EDT Hyperechogenic liver parenchyma, likely representing steatosis. No visualized focal hepatic lesion. Narrative 12/23/2023 5:25 AM EDT US ABDOMEN LIMITED RIGHT UPPER QUADRANT Referring clinician's provided indication for this examination in [facility]: Outside Radiology Order; Anemia; VARICES TECHNIQUE: US [...] representing steatosis. No visualized focal hepatic lesion. us Milana Espinoza PA-C IMG US ABDOMEN Final Result documented in this [...] documented as of this encounter Care Teams Vanstone Machine Operator Relationship Specialty Start Date End Date Bianka Del Valle MD PCP - General Family Medicine 08/26/23 03/14/24 Bianka Del Valle MD [address] [place] [address] PCP - General Family Medicine 03/15/24 Rachel Rush PA-C [address] [place] [address] Physician Risk Management Manager Hematology 08/26/23 Jus Diaz MD [address] [place] [address] [email or web address] Emergency Medicine 02/12/24 documented as of this encounter Additional Source Comments The information contained in this document represents components of the legal health record. It is not the complete legal health record.[facility]
== END 2025-05-01 11:37 | disposition home or self-care (01) ==
LOC: HO.HSM 11:07
PROVIDERS: PCP Family Medicine; Referring Provider Family Medicine; Visit Provider Registered Nurse
DX: R25.2 Cramp and spasm (principal); G82.20 Paraplegia, unspecified; H53.462 Homonymous bilateral field defects, left side; G46.0 Middle cerebral artery syndrome; F03.90 Unspecified dementia, unspecified severity, without behavioral disturbance, psychotic disturbance, mood disturbance, and anxiety
CPT/HCPCS: 99214

== ENCOUNTER → 2025-05-01 11:07 | Outpatient (BNVA) | payer MEDICARE, SELFPAY | PROVIDERS: PCP Family Medicine; Referring Provider Family Medicine; Visit Provider Registered Nurse | DX: R25.2 Cramp and spasm (principal); G82.20 Paraplegia, unspecified; H53.462 Homonymous bilateral field defects, left side; G46.0 Middle cerebral artery syndrome; F03.90 Unspecified dementia, unspecified severity, without behavioral disturbance, psychotic disturbance, mood disturbance, and anxiety | CPT/HCPCS: 99212 ==

== ENCOUNTER 2025-06-08 10:14 | Outpatient (AMB) | payer MEDICARE, SELFPAY ==
--- OUTSIDE RECORDS SUMMARY | 2025-06-07 16:00 | XMS_ITS | Encounter Summary ---
Author Organization [facility] Address [address] [facility] [address] [place] [phone] Phone Care Team Providers Care Intrusion Analyst Name Role Phone Rachel Rush PA-C Unavailable [phone] Jus Diaz MD Unavailable [phone] Bianka Del Valle MD Primary Care Provider [phone] Reason for Visit * Speech Therapy (Within 3 days (urgent)) - Authorized Specialty Diagnoses / Procedures Referred By Iza [email or web address] Referred To Contact Speech Pathology Diagnoses Swallowing problem - Bianka Del Valle MD [address] [place] [address] Phone: tel: fax: [email or web address] [address] [place] [address] Phone: tel: Referral ID Status Reason Start Date Expiration Date V isits Requested Visits Authorized [id number] Authorized 04/24/2025 07/05/2025 99 99 Encounter Details Date Type Department Care Team (Latest Contact Info) Description 06/07/2025 4:00 PM EST Office Visit [facility] 8 [place] [address] Bianka Del Valle MD [address] [place], [place] [phone] [email or web address] Isabel Aguirre, CCC-ANIMAL ATTENDANT [address] [place] [address] [email or web address] Oropharyngeal dysphagia (Primary Dx) Social History Tobacco Use Types Packs/Day Years Used Date Smoking Tobacco: Every Day Cigarettes 1 0.4 Started: 01/03/2025 Smokeless Tobacco: Never Comments:pack every [...] as of this encounter Progress Notes * Isabel Schmidt, GULSHAN-ANIMAL ATTENDANT - 06/07/2025 4:00 PM EST Speech-Language Pathology Treatment Note Subject Line: Treatment Note Patient Name: Randal Arthur Date of : 1950 Referring MD: Bianka Del Valle MD [address] [place] [address] Patient was seen for a Speech Pathology visit on 06/07/2025. Subjective Comments: Pt arrived with caregiver. Pt reports no choking incidents and avoidance of corn and rice. Treatment Plan: GOAL (Short Term): 1. Pt will demonstrate understanding of swallow mechanics and safety strategies with viusal verbal education to Supervision level. 2. Pt will complete swallow strengthening exercises with min to no cues for technique as deemed appropriate 3. Pt will demonstrate use of safe swallow strategies to Supervision/Mod I level. OUTCOME (Research Subject): 1. Pt will demonstrate decreased incidence of coughing with PO intake and/or c/o food sticking withuse of strategies at Supervision/Mod I level within 8 weeks. Patient Stated Goal: Not stated PLAN Frequency and Duration: Patient will be seen 1 times per week for 8 weeks. Swallow mechanics education Swallow exercise and strategy training. Caregiver training Objective Information: No referral is seen in the system for VFSs. ANIMAL ATTENDANT placed call to group billing coordinator re: generating a referral to [facility] for VFSS. Message left. 1. Pt will demonstrate understanding of swallow mechanics and safety strategies with visual verbal education to Supervision level.: Goal MET 2. Pt will complete swallow strengthening exercises with min to no cues for technique as deemed appropriate: deferred until VFSS results obtained 3. Pt will demonstrate use of safe swallow strategies to Supervision/Mod I level.: Randal reports andcaregiver validates that he is avoiding corn and rice. He reports he has hadno choking incidents but still does cough somewhat during meals. Caregiver reports he is better. Pt has not had referral for VFSS yet. Message left for group billing coordinator to please refer to [facility] for said test. Requested Randal bring a sandwich to session scheduled in July (07/11/25) for food trial. Assessment: Pt continues to be mor mindful when eating and has reportedly improved in lessening his frequency of coughing at meals. We are awaiting referral for VFSS and scheduling. Pt will be seen July 11, 2025 in hopes that VFSS will have been performed by then. He is to bring a more normal food item (sandwich) to session for ANIMAL ATTENDANT assessment of management. Plan: Continue with goals as per treatment plan. Isabel Schmidt CCC-ANIMAL ATTENDANT documented in this encounter Plan of Treatment Upcoming Encounters Date Type Department Care Team (Late st Contact Info) Description 06/26/2025 3:30 PM EST Office Visit [facility] [address] [place] [address] Rachel Rush PA-C [address] [place] [address] [email or web address] 07/11/2025 11:30 AM EST Office Visit [facility] 8 [place] [address] Bianka Del Valle MD [address] [place] [phone] Isabel Schmidt, [facility]-ANIMAL ATTENDANT [address] [place] [address] 08/01/2025 10:30 AM EST Appointment [facility] [address] [place] [address] Sin Troncoso MD [address] [place] [address] documented as of this encounter Visit Diagnoses Diagnosis Oropharyngeal dysphagia- Primary Dysphagia, oropharyngeal phase documented in this encounter Care Teams Intrusion Analyst Relationship Specialty Start Date End Date Bianka Del Valle MD [address] [place] [phone] PCP - General Family Medicine 03/15/24 Rachel Rush PA-C [address] [place] [address] Physician Machinist First Class Hematology 08/26/23 Jus Diaz MD [address] [place] [address] Emergency Medicine 02/12/24 documented as of this encounter Additional Source Comments The information contained in this document represents components of the legal health record. It is not the complete legal health record.[facility]
[2025-06-08 10:17] VITALS: BP 120/72; PULSE 66
--- NOTE | 2025-06-08 10:17 | A.OFFVIS_ITS ---
Vital Signs 06/08/25 10:17 Height 6 ft 2 in BP 120/72 Blood Pressure Location Rt brachial Position Sitting Pulse 66 Pulse Source Pulse Oximeter Intake Visit Reasons: 6 month f/up cta Environmental Marketing Representative: Environmental Marketing Representative Present Allergies No Known Allergies Allergy (Verified 06/08/25 10:21) Medication List - Last Reconciled 06/08/25 by FRANK Platt acetaminophen 1,000 mg PO TID PRN apixaban (Eliquis) 5 mg PO BID 30 days atorvastatin 1 tab PO DAILY baclofen 5 mg PO BEDTIME PRN baclofen 10 mg PO TID 30 days budesonide-formoterol 160-4.5 mcg/actuation (Symbicort) 2 puffs PO BID 30 days carbamide peroxide 6.5% 5 drps otic (ears) DAILY PRN 4 days clonazepam (Klonopin) 1 mg PO BEDTIME 30 days clotrimazole 1% 1 appl topical BID 2 weeks cyanocobalamin (vitamin B-12) 1,000 mcg IM Q4W 1 month diclofenac sodium 1% (Arthritis Pain (diclofenac)) 4 grams topical BID 30 days docusate sodium (Colace) 100 mg PO BID 90 days ferrous sulfate 325 mg PO QAM fluoxetine 10 mg PO DAILY folic acid 1 mg PO DAILY furosemide 40 mg PO DAILY glycerin (adult) (Fleet Glycerin (Adult) rectal suppository) 1 supp KS DAILY PRN guaifenesin (Cough Syrup) 200 mg (10 mL) PO Q6H PRN ipratropium-albuterol 0.5 mg-3 mg(2.5 mg base)/3 mL mL inhalation lidocaine 5% 1 patch topical DAILY 30 days losartan 100 mg PO DAILY magnesium hydroxide (Milk of Magnesia) 30 mL PO DAILY PRN menthol 0.8% (Gold Conte Medicated Body) apply to groin topically 2 times a day; metoprolol succinate ER 50 mg PO DAILY 90 days miscellaneous medical supply extra large briefs miscellaneous; nitrofurantoin macrocrystal 100 mg PO Q12H 10 days pantoprazole 40 mg PO BID 30 days peg 3350-electrolytes 236-22.74-6.74 -5.86 gram (GaviLyte-G) 4,000 mL PO DIRECTED 1 day polyethylene glycol 3350 17 grams PO DAILY 30 days pregabalin 200 mg PO BID sennosides (senna) 17.2 mg (2 x 8.6 mg) PO BEDTIME sodium phosphates 19-7 gram/118 mL (Fleet Enema) 118 mL KS ONCE sodium,potassium,mag sulfates 17.5-3.13-1.6 gram (Suprep Bowel Prep Kit) DILUTE; drink 1/2 at 6-8 pm and half at 11 PM- 1AM syringe with needle (Attivio Luer Slip Syringe-Needle) As directed syringe with needle (BD Luer-Maranda Syringe) As directed tamsulosin (Flomax) 0.4 mg PO BEDTIME TENS units As directed and use PRN up to 4x per day thiamine HCl (vitamin B1) 100 mg PO DAILY 90 days zinc oxide 40% 1 appl topical 8XD PRN HPI HPI 6 month f/up cta: Details: The patient is a 74 year old male presenting for followup of diastolic heart failure. He was previously admitted to [facility] for this condition, and an echocardiogram at that time showed an ejection fraction of 60- 65% with moderate diastolic dysfunction and increased left ventricular pressures, but no significant valvular abnormalities. He is maintained on lasix 40mg daily. A prior EKG showed inferior and anterolateral T-wave inversions of unknown duration. A CTA of the coronary arteries was recently done showing mild nonobstructive CAD and small pericardial effusion and pulmonary hypertension. His past medical history is significant for hypertension and diabetes. 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 He also has a history of DVT/blood clots and is on a blood thinner. Since his last visit, the patient reports his breathing has been comfortable and denies chest pain or rapid heartbeats. He reports an intermittent cough, which is unchanged. He reports abdominal discomfort, which has been attributed to constipation. While on a blood thinner, he denies any bleeding problems, including blood in his catheter or stool. He prefers to sleep with his bed propped up for comfort. 2 staff members from his halfway are present with him today. [facility] Medical History On anticoagulant therapy On beta stefan at home Ileus Muscle spasms of both lower extremities DVT (deep venous thrombosis) Pressure ulcer, buttock COPD (chronic obstructive pulmonary disease) Essential hypertension Wheelchair bound Hypertension, essential Diabetes type 2, controlled Incontinence of feces Incontinence of urine Spastic paralysis Left-sided weakness CVA (cerebral vascular accident) Surgical History Hx of colonoscopy History of esophagogastroduodenoscopy (EGD) History of cholecystectomy Family History Mother No problems noted. Father No problems noted. Social History Household Members: Other Housing: Other Housing Other:: half-way. Do you presently have visiting nurse or other home services: No Alcohol intake: current Alcohol intake frequency: 0-2 drinks per day Alcohol type: hard liquor Patient Tobacco Use Status: Current everyday Tobacco user Tobacco use type: Cigarette Cigarettes Per Day: 10 e-Cigarette/Vaping Use: Never Used Second Hand Smoke Exposure: Yes service: No Current occupational status: disabled Cognitive needs: Yes (Wheel chair) Hearing needs: No Vision needs: Yes (Glasses) Review of Systems Const All systems reviewed & are unremarkable except as noted in HPI and below ENT Denies dizziness Card Denies chest pain, Denies chest pain at rest, Denies chest pain with activity, Denies rapid heart rate, Denies pedal edema, Denies edema, Denies leg edema, Denies lightheadedness, Denies palpitations, Denies dyspnea, Denies dyspnea on exertion and Denies orthopnea Resp Denies cough, Denies dyspnea and Denies dyspnea on exertion GI Denies hematochezia and Denies change in stool character Musc Details: Left sided hemiparesis, weakness right leg - very limited mobility overall - in electric chair Reports abnormal gait, Reports limited range of motion, Denies muscle cramps, Reports muscle weakness, Denies radiating pain into limb, Denies stiffness and Denies tingling Neuro Reports abnormal gait, Denies dizziness and Denies tingling Endo Denies palpitations Physical Exam Vital Signs: Last Vital Signs Pulse 66 06/08/25 10:17 BP 120/72 06/08/25 10:17 Const Other: In electric chair. Answer questions appropriately General: healthy appearing, comfortable and no acute distress Orientation/consciousness: patient oriented x3 Resp Effort & Inspection: normal respiratory effort Auscultation: clear to auscultation bilaterally, no rales, no rhonchi and no wheezes Cardio Rate: regular rate Rhythm: regular rhythm Heart sounds: S1 normal heart sound present, S2 normal heart sound present, no gallops, no murmurs and no rubs Neuro General: patient oriented x3 Extrem Other: left hemiparesis, right leg immobile. some movement right arm. - wearing compression socks. Psych Appearance: grossly normal Mental Status: mental status grossly normal Assessment & Plan Assessment & Plan (1) Chronic diastolic (congestive) heart failure: Code(s): I50.32 - Chronic diastolic (congestive) heart failure Category: Medical Plan: Diastolic heart failure with last echocardiogram showing moderate diastolic dysfunction. He is maintained on Lasix 40 mg daily and does not appear fluid overloaded on exam today. A recent CTA of the coronary arteries does show a small pericardial effusion. Will recheck on ultrasound prior to next visit. Signs and symptoms of heart failure reviewed with him. No med changes made today. (2) Pericardial effusion: Code(s): I31.39 - Other pericardial effusion (noninflammatory) Category: Medical Plan: As above (3) Coronary arteriosclerosis: Comment: CTA of coronaries 04/12/2025, minimal stenosis of the proximal and mid LAD, minimal stenosis of 1st diagonal, minimal stenosis of the proximal RCA, small pericardial effusion, mixed atherosclerotic plaque in the descending thoracic aorta, pulmonary arterial hypertension Code(s): I25.10 - Atherosclerotic heart disease of [place] coronary artery without angina pectoris Category: Medical Plan: Mild nonobstructive coronary artery disease, asymptomatic. He is not on aspirin as he is on Eliquis. Continue atorvastatin with LDL goal less than 70. Continue metoprolol for good blood pressure control. (4) Hypertension, essential: Code(s): I10 - Essential (primary) hypertension Category: Medical Plan: Blood pressure goal less than 130/80. Well controlled at this time. No medication changes made (5) Hyperlipidemia: Code(s): E78.5 - Hyperlipidemia, unspecified Category: Medical Plan: [place] LDL goal less than 70 followed by his PCP. Continue atorvastatin. Plan I discussed the results of the recent coronary CTA with the patient and his caregivers, explaining that it showed minimal cholesterol buildup with good blood flow to the heart. I advised that we will continue his current medications to prevent this from worsening. We reviewed his diagnosis of diastolic heart failure, noting that his heart pump is strong, but it may not relax properly, which can lead to fluid retention. I informed them that the CTA revealed a new, small amount of fluid around the heart, which is not concerning at present but should be monitored. I recommended a repeat heart ultrasound before the next visit to ensure the fluid is not building up and that the heart remains strong. I explained that if he were to show signs of fluid overload, we could increase his diuretic dose. I noted that his lungs sounded clear and his vital signs were stable. A follow-up visit in six months was arranged, and I instructed them that they would receive a call to schedule the ultrasound. Orders: Orders CA Echo Limited 5 Months I31.39 - Other pericardial effusion (noninflammatory) Patient Instructions: - Continue to take all your medications as prescribed to manage your heart health and prevent cholesterol buildup from getting worse. - We are ordering a repeat heart ultrasound (echocardiogram) to check on the small amount of fluid around your heart and make sure it has not increased. Someone will call you to schedule this test. - Keep taking your water pill (furosemide) as directed to help prevent fluid from building up in your body. - Continue wearing your compression socks to help with fluid build up in your legs. - You will follow up in this office in about six months. Patient was informed and verbally consented to the use of an ambient scribe for clinic note documentation during this visit. Visit time spent on chart review, interview, assessment, orders, documentation. Coding Level of Care Code Est Pt Level 4 (90268) Complex visit Add On G2211 Diagnoses Chronic diastolic (congestive) heart failure I50.32 Pericardial effusion I31.39 Coronary arteriosclerosis I25.10 Hypertension, essential I10 Hyperlipidemia E78.5 Time Spent (min) 28
--- OUTSIDE RECORDS SUMMARY | 2025-06-08 12:22 | XMS_ITS | Encounter Summary ---
Author Organization [facility] Address [address] [place] [address] Phone Care Team Providers Care Experimental Plastics Fabricator Name Role Phone Rachel Rush PA-C Unavailable Jus Diaz MD Unavailable [phone] Bianka Del Valle MD Primary Care Provider Encounter Details Date Type Department Care Team (Late st Contact Info) Description 12/20/2024 Transcribe Orders Virtual Department 30 [place] [address] Gregor Byrd MD [address] [place] [address] [phone] [email or web address] Social History Tobacco Use Types Packs/Day Years [...] Description 06/26/2025 3:30 PM EST Office Visit [facility] at [address] [address] Rachel Rush PAJayC [address] [place] [address] 07/11/2025 11:30 AM EST Office Visit [facility] 8 [place] [address] Bianka Del Valle MD [address] [place] [address] Isabel Schmidt, CCC-VISOR INSTALLER 8 [place] [address] 08/01/2025 10:30 AM EST Appointment [facility] [address] [place] [address] Sin Troncoso MD [address] [place] [address] documented as of this encounter Visit Diagnoses Not on filedocumented in this encounter Care Teams Experimental Plastics Fabricator Relationship Specialty Start Date End Date Bianka Del Valle MD [address] [place] [address] PCP - General Family Medicine 03/15/24 Rachel Rush PA-C [address] [place] [address] Physician Director Of Securities And Real Estate Hematology 08/26/23 Jus Diaz MD [address] [place] [address] [email or web address] Emergency Medicine 02/12/24 documented as of this encounter Additional Source Comments The information contained in this document represents components of the legal health record. It is not the complete legal health record.[facility]
--- OUTSIDE RECORDS SUMMARY | 2025-06-08 12:22 | XMS_ITS | Encounter Summary ---
Author Organization [facility] Address [address] [facility] [address] [place] [address] Phone Care Team Providers Care Commercial Construction Estimator Name Role Phone Rachel Rush PA-C Unavailable [phone] Jus Diaz MD Unavailable [phone] Bianka Del Valle MD Primary Care Provider Encounter Details Date Type Department Care Team (Late st Contact Info) Description 10/06/2024 Procedure Pass [facility] Endoscopy Admitting Dept Virtual Department 30 [place] [address] Social History Tobacco Use Types Packs/Day Years [...] Description 06/26/2025 3:30 PM EST Office Visit [facility] at [facility] 30 [place] [address] Rachel Rush PAJayC [address] [place] [address] 07/11/2025 11:30 AM EST Office Visit [facility] 8 [place] [address] Bianka Del Valle MD [address] [place] [address] Isabel Schmidt, [facility] 8 [place] [address] 08/01/2025 10:30 AM EST Appointment [facility] [address] [place] [address] Sin Troncoso MD [address] [place] [address] documented as of this encounter Visit Diagnoses Not on filedocumented in this encounter Care Teams Commercial Construction Estimator Relationship Specialty Start Date End Date Bianka Del Valle MD [address] [place] [address] [email or web address] PCP - General Family Medicine 03/15/24 Rachel Rush PA-C [address] [place] [address] [email or web address] Physician Senior Courtroom Clerk Hematology 08/26/23 Jus Diaz MD [address] [place] [address] [email or web address] Emergency Medicine 02/12/24 documented as of this encounter Additional Source Comments The information contained in this document represents components of the legal health record. It is not the complete legal health record.[facility]
--- OUTSIDE RECORDS SUMMARY | 2025-06-08 12:22 | XMS_ITS | Encounter Summary ---
Author Organization [facility] Address [address] [address] Phone Care Team Providers Care Coldfusion Name Role Phone Rachel Rush PA-C Unavailable Jus Diaz MD Unavailable Bianka Del Valle MD Primary Care Provider Reason for Visit * Reason Comments Medication Refill Encounter Details Date Type Department Care Team (Late st Contact Info) Description 03/30/2025 Refill [facility] Pulmonary, Allergy and Critical Care Medicine 10 [place] [address] Sin Troncoso MD 30 [place], [place] [phone] Medication Refill Social History Tobacco Use Types [...] Description 06/26/2025 3:30 PM EST Office Visit [facility] at [address] [address] Rachel Rush PA-C 30 [place] [address] [email or web address] 07/11/2025 11:30 AM EST Office Visit [facility] 8 [place] [address] Bianka Del Valle MD 70 [place] [address] Isabel Schmidt, [facility] 8 [place] [address] 08/01/2025 10:30 AM EST Appointment [facility] 30 [place] [address] Sin Troncoso MD 30 [place] [address] documented as of this encounter Visit Diagnoses Diagnosis Asthmatic bronchitis without complication documented in this encounter Care Teams Coldfusion Relationship Specialty Start Date End Date Bianka Del Valle MD [address] [place] [address] PCP - General Family Medicine 03/15/24 Rachel Rush PA-C [address] [place] [address] Physician Sand Technologist Hematology 08/26/23 Jus Diaz MD [address] [place] [phone] Emergency Medicine 02/12/24 documented as of this encounter Additional Source Comments The information contained in this document represents components of the legal health record. It is not the complete legal health record.[facility]
--- OUTSIDE RECORDS SUMMARY | 2025-06-08 12:22 | XMS_ITS | Encounter Summary ---
Author Organization [facility] Address [address] [facility] [address] [place] [address] Phone Care Team Providers Care Identity Management Consultant Name Role Phone Bianka Del Valle MD Primary Care Provider Rachel Rush PA-C Unavailable Jus Diaz MD Unavailable [phone] Bianka Del Valle MD Primary Care Provider [phone] Encounter Details Date Type Department Care Team (Late st Contact Info) Description 11/16/2023 Procedure Pass [facility] Endoscopy Admitting Dept Virtual Department 30 [place], [place] [phone] Social History Tobacco Use Types Packs/Day Years [...] Description 06/26/2025 3:30 PM EST Office Visit [facility] at [facility] 30 [place] [address] Rachel Rush PA-C [address] [place] [address] 07/11/2025 11:30 AM EST Office Visit [facility] 8 [place] [address] Bianka Del Valle MD [address] [place] [address] Isabel Schmidt, CCC-ADVISORY SERVICES ASSOCIATE 8 [place] [address] 08/01/2025 10:30 AM EST Appointment [facility] [address] [place] [address] Sin Troncoso MD [address] [place] [address] documented as of this encounter Visit Diagnoses Not on filedocumented in this encounter Additional Health Concerns Infection Onset Date Last Indicated Resolved Time CoV-Risk 12/03/2023 12/03/2023 12/14/2023 1:24 AM EDT CDiff-Risk 12/03/2023 12/03/2023 12/04/2023 1:00 AM EDT CDiff-Risk 12/10/2023 12/10/2023 12/17/2023 1:21 AM EDT documented as of this encounter Care Teams Identity Management Consultant Relationship Specialty Start Date End Date Bianka Del Valle MD [email or web address] PCP - General Family Medicine 08/26/23 03/14/24 Bianka Del Valle MD [address] [place] [address] [email or web address] PCP - General Family Medicine 03/15/24 Rachel Rush PA-C [address] [place] [address] [email or web address] Physician Pv Design And Installation Technician Hematology 08/26/23 Jus Diaz MD [address] [place] [address] [email or web address] Emergency Medicine 02/12/24 documented as of this encounter Additional Source Comments The information contained in this document represents components of the legal health record. It is not the complete legal health record.[facility]
--- OUTSIDE RECORDS SUMMARY | 2025-06-08 12:22 | XMS_ITS | Encounter Summary ---
Author Organization [facility] Address [address] [employer] [facility] [address] [place] [address] Phone Care Team Providers Care Watch Parts Grinder Name Role Phone Rachel Rush PA-C Unavailable [phone] Jus Diaz MD Unavailable Bianka Del Valle MD Primary Care Provider Encounter Details Date Type Department Care Team (Latest Contact Info) Description 07/14/2024 Transcribe Orders [facility] Phleb Tania [address] [place] [address] Milana Espinoza PA-C [address], [address] [place] [address] [email or web address] Anemia, unspecified type (Primary Dx); Fatty liver [...] Description 06/26/2025 3:30 PM EST Office Visit [facility] 30 [place] [address] Rachel Rush PAJayC [address] [place] [address] [email or web address] 07/11/2025 11:30 AM EST Office Visit [facility] 8 [place] [address] Bianka Del Valle MD [address] [place] [address] Isabel Schmidt, GULSHAN-LOAN REVIEWER 8 [place] [address] 08/01/2025 10:30 AM EST Appointment [facility] 30 [place] [address] Sin Troncoso MD [address] [place] [address] [email or web address] documented as of this encounter Results * (ABNORMAL) Fecal immunochemical test x1 (FIT) (07/23/2024 9:00 AM EST) Immuno Fecal Occult Positive(A ) Negative [facility] Stool (Stool) 07/23/2024 9:0 0 AM EST 07/25/2024 2:24 PM EST us Milana Espinoza PA-C LAB BODY FLUIDS AND STOOL ORDER PEDRO Final Result Performing Organization Address [facility]/ZIP Co de Phone Number [address] [address] * Vitamin B12 (07/14/2024 3:48 PM EST) Pathologist [facility] VITAMIN B12 753 232 - 1,245 pg/mL [facility] Blood 07/14/2024 3:48 PM EST 07/14/2024 4:05 PM EST us Milana Espinoza PA-C LAB BLOOD BKR ORDERABLES Final Result Performing Organization Address [facility] Co de Phone Number [address] [address] * (ABNORMAL) PT-INR (07/14/2024 3:48 PM EST) Pathologist [facility] PT 15.8(H) 10.2 - 12.9 sec [facility] INR 1.4(H) 0.9 - 1.1 [facility] Comment:Therapeutic range fo r oral Vitamin K antagonists: 2.0-3.5 Blood 07/14/2024 3:48 PM EST 07/14/2024 4:05 PM EST us Milana Espinoza PA-C LAB BLOOD BKR ORDERABLES Final Result Performing Organization Address [facility]/ZIP Co de Phone Number [address] [address] * Ferritin (07/14/2024 3:48 PM EST) FERRITIN 344 30 - 400 ug/L [facility] Blood 07/14/2024 3:48 PM EST 07/14/2024 4:05 PM EST us Milana Espinoza PA-C LAB BLOOD BKR ORDERABLES Final Result [address] [address] * (ABNORMAL) Folate (07/14/2024 3:48 PM EST) Pathologist [facility] FOLIC ACID >20.0(H) 4.2 - 19.9 ng/mL [facility] Blood 07/14/2024 3:48 PM EST 07/14/2024 4:05 PM EST us Milana Espinoza PA-C LAB BLOOD BKR ORDERABLES Final Result Performing Organization Address City/[facility]/ZIP Co de Phone Number [address] [address] * Iron and iron binding capacity (07/14/2024 3:48 PM EST) IRON 155 45 - 160 ug/dL [facility] IRON BINDING CAPACITY 291 228 - 428 ug/dL [facility] TRANSFERRIN SATURAT. 53 20 - 55 % [facility] Blood 07/14/2024 3:48 PM EST 07/14/2024 4:05 PM EST us Milana Espinoza PA-C LAB BLOOD BKR ORDERABLES Final Result Performing Organization Address City/[facility]/ZIP Co de Phone Number [address] [address] * (ABNORMAL) Comprehensive metabolic panel (07/14/2024 3:48 PM EST) SODIUM 142 133 - 146 mmol/L [facility] POTASSIUM 4.0 3.3 - 5.1 mmol/L [facility] CHLORIDE 107 96 - 108 mmol/L [facility] CO2 27 21 - 35 mmol/L [facility] BUN 6 6 - 19 mg/dL [facility] CREATININE 0.40(L) 0.5 - 1.5 mg/dL [facility] GLUCOSE 98 70 - 99 mg/dL [facility] ALBUMIN 3.4(L) 3.9 - 4.8 g/dL [facility] TOTAL PROTEIN 6.4(L) 6.5 - 8.0 g/dL [facility] CALCIUM 8.7 8.4 - 10.3 mg/dL [facility] ALKALINE PHOSPHATASE 70 39 - 117 U/L [facility] TOTAL BILIRUBIN 0.3 0.0 - 1.2 mg/dL [facility] AST 15 0 - 37 U/L [facility] ALT 6 0 - 40 U/L [facility] GLOBULIN 3.0 1 - 4.8 g/dL [facility] EGFR 117 >59 mL/min/1.7 3m2 [facility] Comment:Estimated glomerular filtration rate calculated using the CKD-EPI refit equation. ANION GAP 12 10 - 20 mmol/L [facility] Blood 07/14/2024 3:48 PM EST 07/14/2024 4:05 PM EST us Milana Espinoza PA-C LAB BLOOD BKR ORDERABLES Final Result [address] [address] * (ABNORMAL) CBC (07/14/2024 3:48 PM EST) WBC 5.90 4.00 - 11.00 K/uL [facility] RBC 4.93 4.50 - 5.90 M/uL [facility] HGB 10.9(L) 13.5 - 17.5 g/dL [facility] HCT 37.3(L) 41.0 - 53.0 % [facility] PLT 321 150 - 450 K/uL [facility] MCV 75.7(L) 80.0 - 100.0 fL [facility] MCH 22.1(L) 27.0 - 31.0 pg [facility] MCHC 29.2(L) 32.0 - 36.0 g/dL [facility] RDW 20.8(H) 11.5 - 14.5 % [facility] MPV 11.0 8.4 - 12.0 fL [facility] NRBC 0.00 0.00 /100 WBCs [facility] ABSOLUTE NRBC 0.00 0.00 K/uL [facility] Blood 07/14/2024 3:48 PM EST 07/14/2024 4:05 PM EST us Milana Espinoza PA-C LAB BLOOD BKR ORDERABLES Final Result Performing Organization Address [facility] Co de Phone Number [address] [address] * AFP (non-maternal specimens) (07/14/2024 3:48 PM EST) AFP (NON-MATERNAL) <1.8 <7.9 ng/mL [facility] Comment: Test Methodology Lauren e801 Patient results determined by assays using different manufacturers or methods may not be comparable. Blood 07/14/2024 3:48 PM EST 07/14/2024 4:05 PM EST us Milana Espinoza PA-C LAB BLOOD BKR ORDERABLES Final Result Performing Organization Address City/[facility] Co de Phone Number [address] [address] documented in this encounter Visit Diagnoses Diagnosis Anemia, unspecified type- Primary Fatty liver disease, nonalcoholic documented in this encounter Care Teams Watch Parts Grinder Relationship Specialty Start Date End Date Bianka Del Valle MD [address] [place] [address] PCP - General Family Medicine 03/15/24 Rachel Rush PA-C [address] [place] [address] [email or web address] Physician Business Office Director Hematology 08/26/23 Jus Diaz MD [address] [place] [address] [email or web address] Emergency Medicine 02/12/24 documented as of this encounter Additional Source Comments The information contained in this document represents components of the legal health record. It is not the complete legal health record.[facility]
--- OUTSIDE RECORDS SUMMARY | 2025-06-08 12:22 | XMS_ITS | Encounter Summary ---
Author Organization [facility] Address [address] [employer] [facility] [address] [place] [address] Phone Care Team Providers Care Bindery Supervisor Name Role Phone Rachel Rush PA-C Unavailable [phone] Jus Diaz MD Unavailable [phone] Bianka Del Valle MD Primary Care Provider Encounter Details Date Type Department Care Team (Late st Contact Info) Description 11/14/2024 Procedure Pass [facility] Endoscopy Admitting Dept Virtual Department 30 [place] [address] Social History Tobacco Use Types Packs/Day Years [...] Description 06/26/2025 3:30 PM EST Office Visit [facility] 30 [place] [address] Rachel Rush PAJayC [address] [place] [address] 07/11/2025 11:30 AM EST Office Visit [facility] 8 [place] [address] Bianka Del Valle MD [address] [place] [address] Isabel Schmidt, [facility]-RAIL[facility]AD DETECTIVE 8 [place] [address] 08/01/2025 10:30 AM EST Appointment [facility] [address] [place] [address] Sin Troncoso MD [address] [place] [address] documented as of this encounter Visit Diagnoses Not on filedocumented in this encounter Care Teams Bindery Supervisor Relationship Specialty Start Date End Date Bianka Del Valle MD [address] [place] [address] [email or web address] PCP - General Family Medicine 03/15/24 Rachel Rush PA-C [address] [place] [address] [email or web address] Physician Solderer Barrel Ribs Hematology 08/26/23 Jus Diaz MD [address] [place] [address] [email or web address] Emergency Medicine 02/12/24 documented as of this encounter Additional Source Comments The information contained in this document represents components of the legal health record. It is not the complete legal health record.[facility]
--- OUTSIDE RECORDS SUMMARY | 2025-06-08 12:22 | XMS_ITS | Clinical Summary ---
Author Organization [facility] Address [address] [place] [address] Care Team Providers Care Prefitter Doors Name Role Phone Unavailable Primary Care Provider [...] this topic Insurance [employer] MCR Adv PPO ([phone]) [employer] MCR Adv PPO ([phone])
--- OUTSIDE RECORDS SUMMARY | 2025-06-08 12:22 | XMS_ITS | Encounter Summary ---
Author Organization [facility] Address [address] [place] [address] Phone Care Team Providers Care Shopping Investigator Name Role Phone Rachel Rush PA-C Unavailable [phone] Jus Diaz MD Unavailable [phone] Bianka Del Valle MD Primary Care Provider Encounter Details Date Type Department Care Team (Late st Contact Info) Description 03/16/2025 Procedure Pass [facility], Ct Scan - [address] [address] Social History Tobacco Use Types Packs/Day Years [...] Description 06/26/2025 3:30 PM EST Office Visit [facility] at [address] [address] Rachel Rush PA-C [address] [place] [address] 07/11/2025 11:30 AM EST Office Visit [facility] Services [address] [place] [address] Bianka Del Valle MD [address] [place] [address] Isabel Schmidt, [facility]-INSIDE SALES ADVISOR 8 [place] [address] 08/01/2025 10:30 AM EST Appointment [facility] [address] [place] [address] Sin Troncoso MD [address] [place] [address] documented as of this encounter Visit Diagnoses Not on filedocumented in this encounter Care Teams Shopping Investigator Relationship Specialty Start Date End Date Bianka Del Valle MD [address] [place] [address] [email or web address] PCP - General Family Medicine 03/15/24 Rachel Rush PA-C [address] [place] [address] [email or web address] Physician Senior Medical Technologist Hematology 08/26/23 Jus Diaz MD [address] [place] [address] [email or web address] Emergency Medicine 02/12/24 documented as of this encounter Additional Source Comments The information contained in this document represents components of the legal health record. It is not the complete legal health record.[facility]
--- OUTSIDE RECORDS SUMMARY | 2025-06-08 12:23 | XMS_ITS | Encounter Summary ---
Author Organization [facility] Address [address] [facility] [address] [place] [address] Phone Care Team Providers Care Electronic Test Technician Name Role Phone Bianka Del Valle MD Primary Care Provider Rachel Rush PA-C Unavailable [phone] Jus Diaz MD Unavailable [phone] Bianka Del Valle MD Primary Care Provider [phone] Reason for Referral * Molecular Pathology - Closed Specialty Diagnoses / Procedures Referred By Iza mcpherson Referred To Contact Diagnoses Need for hepatitis C screening test Anemia, unspecified type Change in bowel habits Procedures Hemochromatosis Gene Analysis Milana Espinoza PA-C Phone: tel: fax: [email or web address] Referral ID Status Reason Start Date Expiration Date Visits Re quested Visits Authorized [id number] Closed 12/10/2023 12/09/2024 1 1 Encounter Details Date Type Department Care Team (Latest Contact Info) Description 12/10/2023 Transcribe Orders [facility] [address] [place] [address] Milana Espinoza PA-C [address] [place] [address] Need for hepatitis C screening test (Primary [...] Description 06/26/2025 3:30 PM EST Office Visit [facility] at [address] [address] Rachel Rush PA-C [address] [place] [address] [email or web address] 07/11/2025 11:30 AM EST Office Visit [facility] 8 [place] [address] Bianka Del Valle MD [address] [place] [phone] Isabel Schmidt, [facility]-NEUROS[facility] SPECIALIST 8 [place] [address] 08/01/2025 10:30 AM EST Appointment [facility] [address] [place] [address] Sin Troncoso MD [address] [place] [address] [email or web address] documented as of this encounter Results * Hepatitis C antibody, qualitative (04/07/2024 4:22 PM EDT) HCV NON-REACTIV E NON-REACTI VE [facility] Blood 04/07/2024 4:22 PM EDT 04/07/2024 4:36 PM EDT us Milana Espinoza PA-C LAB BLOOD BKR ORDERABLES Final Result Performing Organization Address City/[facility]/ZIP Co de Phone Number [address] [address] * Hepatitis B surface antigen (04/07/2024 4:22 PM EDT) HBV SURFACE ANTIGEN NON-REACTI VE NON-REACTI VE [facility] Blood 04/07/2024 4:22 PM EDT 04/07/2024 4:36 PM EDT us Milana LOPEZ-Chemo LAB BLOOD BKR ORDERABLES Final Result [address] [address] * Ova and parasites, stool (01/08/2024 8:00 AM EDT) Parasitic exam FINAL 4 1450 [facility] DPT OF LAB MED AND PAT+ Comment: (NOTE) SOURCE: STOOL, STLP OVA AND PARASITE, MICROSCOPY, F FINAL No parasites seen. Cryptosporidium, Cyclospora, and microsporidia are not readily detected by this method. Single negative specimen does not rule out parasitic infection. Stool (Stool) 01/08/2024 8:0 0 AM EDT 01/11/2024 12:44 PM EDT Milana Espinoza PA-C LAB BODY FLUIDS AND STOOL ORDER PEDRO Final Result Performing Organization Address [facility] Co de Phone Number [facility] LAB MED AND PAT+ [address] [place] [address] * Ova and parasites, stool (01/07/2024 8:30 AM EDT) Parasitic exam FINAL 4 1440 [facility] OF LAB MED AND PAT+ Comment: (NOTE) SOURCE: STOOL, STLP OVA AND PARASITE, MICROSCOPY, F FINAL No parasites seen. Cryptosporidium, Cyclospora, and microsporidia are not readily detected by this method. Single negative specimen does not rule out parasitic infection. Stool (Stool) 01/07/2024 8:3 0 AM EDT 01/11/2024 12:41 PM EDT Milana Espinoza PA-C LAB BODY FLUIDS AND STOOL ORDER PEDRO Final Result Performing Organization Address City/[facility]/ZIP Co de Phone Number [facility] OF LAB MED AND PAT+ [address] [place] [address] * Ova and parasites, stool (01/05/2024 9:00 AM EDT) Parasitic exam FINAL 4 1432 [facility] LAB MED AND PAT+ Comment: (NOTE) SOURCE: STOOL, STLP OVA AND PARASITE, MICROSCOPY, F FINAL No parasites seen. Cryptosporidium, Cyclospora, and microsporidia are not readily detected by this method. Single negative specimen does not rule out parasitic infection. Stool (Stool) 01/05/2024 9:0 0 AM EDT 01/11/2024 12:39 PM EDT us Milana Espinoza PA-C LAB BODY FLUIDS AND STOOL ORDER PEDRO Final Result Performing Organization Address City/[facility]/ZIP Co de Phone Number [facility] LAB MED AND PAT+ [address] [place] [address] * (ABNORMAL) PT-INR (12/10/2023 11:40 AM EDT) PT 17.7(H) 10.2 - 12.9 sec [facility] INR 1.6(H) 0.9 - 1.1 [facility] Comment:Therapeutic range fo r oral Vitamin K antagonists: 2.0-3.5 Blood 12/10/2023 11:4 0 AM EDT 12/10/2023 11:48 AM EDT us Milana Espinoza PA-C LAB BLOOD BKR ORDERABLES Final Result Performing Organization Address [facility] Co de Phone Number [address] [address] * Ferritin (12/10/2023 11:40 AM EDT) Pathologist [facility] FERRITIN 45 30 - 400 ug/L [facility] Blood 12/10/2023 11:4 0 AM EDT 12/10/2023 11:48 AM EDT Milana Espinoza PA-C LAB BLOOD BKR ORDERABLES Final Result Performing Organization Address City/[facility] Co de Phone Number [address] [address] * (ABNORMAL) Monoclonal protein study, serum (12/10/2023 11:40 AM EDT) M-protein GK Test component not applicable or not reported. g/dL [facility] DR M-protein GL Test component not applicable or not reported. g/dL [facility] DR M-protein AK Test component not applicable or not reported. g/dL [facility] DR M-protein AL Test component not applicable or not reported. g/dL [facility] DR M-protein MK Test component not applicable or not reported. g/dL [facility] DR M-protein ML Test component not applicable or not reported. g/dL [facility] DR Glycosylation Test component not applicable or not reported. [facility] Flag, M-protein Isotype Negative Negative [facility] QMPTS Interpretation No monoclonal protein detected. [facility] Comment: (NOTE) ADDITIONAL INFORMATION The submitted sample was assayed by five separate immunopurifications for IgG, IgA, IgM, kappa and lambda. The result reflects the findings of either no monoclonal protein detected or those monoclonal immunoglobulins that were detected. This test was developed and its performance characteristics determined by [facility] in a manner consistent with CLIA requirements. This test has not been cleared or approved by the U.S. Food and Drug Administration. IgA 400(H) 61 - 356 mg/dL [facility] IgM 33(L) 37 - 286 mg/dL [facility] IgG 1,330 767 - 1,590 mg/dL [facility] Therapeutic Antibody Administered? Unknown [facility] Blood 12/10/2023 11:4 0 AM EDT 12/10/2023 11:48 AM EDT us Milana Espinoza PA-C LAB BLOOD BKR ORDERABLES Final Result [facility] [address] [place] [address] * TSH (12/10/2023 11:40 AM EDT) TSH 1.62 0.27 - 4.20 uIU/mL [facility] Blood 12/10/2023 11:4 0 AM EDT 12/10/2023 11:48 AM EDT us Milana Espinoza PA-C LAB BLOOD BKR ORDERABLES Final Result [address] [address] * (ABNORMAL) Iron and iron binding capacity (12/10/2023 11:40 AM EDT) IRON 262(H) 45 - 160 ug/dL [facility] IRON BINDING CAPACITY NOT CALCULATED 228 - 428 ug/dL [facility] TRANSFERRIN SATURAT. NOT CALCULATED 20 - 55 % [facility] Blood 12/10/2023 11:4 0 AM EDT 12/10/2023 11:48 AM EDT us Milana Espinoza PA-C LAB BLOOD BKR ORDERABLES Final Result Performing Organization Address City/[facility]/ZIP Co de Phone Number [address] [address] * Lipase (12/10/2023 11:40 AM EDT) LIPASE 27 16 - 63 U/L [facility] Blood 12/10/2023 11:4 0 AM EDT 12/10/2023 11:48 AM EDT us Milana Espinoza PA-C LAB BLOOD BKR ORDERABLES Final Result Performing Organization Address City/[facility]/ZIP Co de Phone Number [address] [address] * Hemochromatosis Gene Analysis (12/10/2023 11:40 AM EDT) HFE Gene analysis SEE NOTE 08:46 AM [facility] DPT OF LAB MED AND PAT+ [...] ADDITIONAL INFORMATION An online research opportunity called Qeexo (Every[employer]White Source), a project of [employer], is available for the recipient of this genetic test. This patient registry collects de-identified genetic and health information to advance the knowledge of genetic variants. [facility] is a collaborator of [employer]. This may not be applicable for all [...] allogenic donors will interfere with testing. Call [facility] for instructions for testing patients [...] developed and its performance characteristics determined by [facility] in a manner consistent with CLIA [...] EDT us Milana Espinoza PA-C LAB BLOOD BKR ORDERABLES Final Result [facility] OF LAB MED AND PAT+ [address] [place] [address] * (ABNORMAL) Comprehensive metabolic panel (12/10/2023 11:40 AM EDT) SODIUM 144 133 - 146 mmol/L [facility] POTASSIUM 4.1 3.3 - 5.1 mmol/L [facility] CHLORIDE 107 96 - 108 mmol/L [facility] CO2 28 21 - 35 mmol/L [facility] BUN 9 6 - 19 mg/dL [facility] CREATININE 0.40(L) 0.5 - 1.5 mg/dL [facility] GLUCOSE 111(H) 70 - 99 mg/dL [facility] ALBUMIN 3.4(L) 3.9 - 4.8 g/dL [facility] TOTAL PROTEIN 6.2(L) 6.5 - 8.0 g/dL [facility] CALCIUM 8.6 8.4 - 10.3 mg/dL [facility] ALKALINE PHOSPHATASE 61 39 - 117 U/L [facility] TOTAL BILIRUBIN 0.3 0.0 - 1.2 mg/dL [facility] AST 19 0 - 37 U/L [facility] ALT 15 0 - 40 U/L [facility] GLOBULIN 2.8 1 - 4.8 g/dL [facility] EGFR 117 >59 mL/min/1.7 3m2 [facility] Comment:Estimated glomerular filtration rate calculated using the CKD-EPI refit equation. ANION GAP 13 10 - 20 mmol/L [facility] Blood 12/10/2023 11:4 0 AM EDT 12/10/2023 11:48 AM EDT us Milana Espinoza PA-C LAB BLOOD BKR ORDERABLES Final Result [address] [address] * (ABNORMAL) CBC (12/10/2023 11:40 AM EDT) WBC 6.12 4.00 - 11.00 K/uL [facility] RBC 4.52 3.90 - 5.69 M/uL [facility] HGB 9.9(L) 12.4 - 17.3 g/dL [facility] HCT 35.2(L) 37.0 - 51.0 % [facility] PLT 424 140 - 430 K/uL [facility] MCV 77.9(L) 78.0 - 97.0 fL [facility] MCH 21.9(L) 25.0 - 33.0 pg [facility] MCHC 28.1(L) 32.0 - 36.0 g/dL [facility] RDW 22.2(H) 11.0 - 15.0 % [facility] MPV 9.9 8.4 - 12.8 fl [facility] Blood 12/10/2023 11:4 0 AM EDT 12/10/2023 11:48 AM EDT us Milana Espinoza PA-C LAB BLOOD BKR ORDERABLES Final Result [address] [address] * Smooth Muscle Antibody (12/10/2023 11:40 AM EDT) SMOOTH MUSCLE AB POSITIVE AT 1:20 [facility] Comment: Performing Physician, Bradley Tidwell M.D., [id number] Normal: Negative at 1:20 Blood 12/10/2023 11:4 0 AM EDT 12/10/2023 11:49 AM EDT us Milana Espinoza PA-C LAB BLOOD ORDERABLES Final Resu lt Performing Organization Address City/[facility] Co de Phone Number [address] [address] * Antinuclear antibody (LEIDY) (12/10/2023 11:40 AM EDT) LEIDY SCREEN ON HEP 2 Negative Negative [facility] Blood 12/10/2023 11:4 0 AM EDT 12/10/2023 11:48 AM EDT Milana Espinoza PA-C LAB BLOOD BKR ORDERABLES Final Result Performing Organization Address [facility] Co de Phone Number [address] [address] * Anti-Mitochondrial Antibody (AMA) (12/10/2023 11:40 AM EDT) MITOCHONDRIAL AB NEGATIVE AT 1:20 [facility] Comment: Performing Physician, Bradley Tidwell M.D., [id number] Normal: Negative at 1:20 Blood 12/10/2023 11:4 0 AM EDT 12/10/2023 11:49 AM EDT Milana Espinoza PA-C LAB BLOOD ORDERABLES Final Resu lt Performing Organization Address [facility] Co de Phone Number [address] [address] * AFP (non-maternal specimens) (12/10/2023 11:40 AM EDT) AFP (NON-MATERNAL) <1.8 <7.9 ng/mL [facility] Comment: Test Methodology Lauren [id number] Patient results determined by assays using different manufacturers or methods may not be comparable. Blood 12/10/2023 11:4 0 AM EDT 12/10/2023 11:48 AM EDT Milana Espinoza PA-C LAB BLOOD BKR ORDERABLES Final Result Performing Organization Address [facility] Co de Phone Number [facility] [address] [place] [address] * Bqttq-6-oilwpswveoy phenotyping (12/10/2023 11:40 AM EDT) Pathologist [facility] ALPHA 1 ANTITRYPSIN 159 100 - 190 mg/dL [facility] LAB MED/PATH [address] Comment: (NOTE) ADDITIONAL INFORMATION Method: Nephelometry A1A PHENOTYPE IM bands [facility] LAB MED/PATH [facility] Comment: (NOTE) Heterozygous for I and M isoforms. This phenotype is usually associated with normal uxmhq-1-drmvsbhgiky concentrations. ADDITIONAL INFORMATION Method: Isoelectric Focusing, This assay identifies the phenotype of the circulating kzaem-7-enpjueqagsj (A1A) protein. If the patient is on [...] ORDERABLES Final Resu lt Performing Organization Address City/[facility]/ZIP Co de Phone Number [facility] [address] [place] [address] documented in this encounter Visit Diagnoses Diagnosis [...] documented as of this encounter Care Teams Electronic Test Technician Relationship Specialty Start Date End Date Bianka Del Valle MD PCP - General Family Medicine 08/26/23 03/14/24 Bianka Del Valle MD [address] [place] [address] PCP - General Family Medicine 03/15/24 Rachel Rush PA-C [address] [place] [address] Physician Line Therapist Hematology 08/26/23 Jus Diaz MD [address] [place] [address] Emergency Medicine 02/12/24 documented as of this encounter Additional Source Comments The information contained in this document represents components of the legal health record. It is not the complete legal health record.[facility]
--- OUTSIDE RECORDS SUMMARY | 2025-06-08 12:23 | XMS_ITS | Encounter Summary ---
Author Organization [facility] Address [address] [employer] [facility] [address] [place] [address] Phone Care Team Providers Care Technology Education Instructor Name Role Phone Bianka Del Valle MD Primary Care Provider Rachel Rush PA-C Unavailable [phone] Jus Diaz MD Unavailable Bianka Del Valle MD Primary Care Provider Encounter Details Date Type Department Care Team (Late st Contact Info) Description 12/03/2023 Procedure Pass [facility], Ct Scan - [address] [id number] Social History Tobacco Use Types Packs/Day Years [...] 12:07 PM EDT Karin Snowden, DESTINEE * Hall Suicide Severity Rating Scale (Screener/Recent Self-Report) Question Answer Date of Assessment Author 1. Wish to be (Past 1 Month) No 024 12:07 PM EDT Karin Akhtar RN 2. Non-Specific Active Suici paras Thoughts (Past 1 Month) No 12/03/2023 12:07 PM EDT Lorne Akhtar RN 6. Suicidal Behavior (Lifetime) No 4 12:07 PM EDT Karin Akhtar, DESTINEE documented as of this encounter Plan of Treatment Upcoming Encounters Date Type Department Care Team (Late st Contact Info) Description 06/26/2025 3:30 PM EST Office Visit [facility] at [address] [address] Rachel Rush PA-C [address] [place] [address] 07/11/2025 11:30 AM EST Office Visit [facility] [address] [place] [address] Bianka Del Valle MD [address] [place] [address] Isabel Schmidt, [facility]-STRATEGY EXECUTION CONSULTANT [address] [place] [address] [email or web address] 08/01/2025 10:30 AM EST Appointment [facility] 30 [place] [address] Sin Troncoso MD [address] [place] [address] [email or web address] documented as of this encounter Visit Diagnoses Not on filedocumented in this encounter Additional Health Concerns Infection Onset Date Last Indicated Resolved Time CoV-Risk 12/03/2023 12/03/2023 12/14/2023 1:24 AM EDT CDiff-Risk 12/03/2023 12/03/2023 12/04/2023 1:00 AM EDT [facility]Risk 12/10/2023 12/10/2023 12/17/2023 1:21 AM EDT documented as of this encounter Care Teams Technology Education Instructor Relationship Specialty Start Date End Date Bianka Del Valle MD PCP - General Family Medicine 08/26/23 03/14/24 Bianka Del Valle MD [address] [place] [address] PCP - General Family Medicine 03/15/24 Rachel Rush PAJayC [address] [place] [email or web address] Physician Nursing Educator Hematology 08/26/23 Jus Diaz MD [address] [place] [address] [email or web address] Emergency Medicine 02/12/24 documented as of this encounter Additional Source Comments The information contained in this document represents components of the legal health record. It is not the complete legal health record.[facility]
--- OUTSIDE RECORDS SUMMARY | 2025-06-08 12:23 | XMS_ITS | Encounter Summary ---
Author Organization [facility] Address [address] [facility] [address] [place] [address] Phone Care Team Providers Care Baker Chef Name Role Phone Bianka Del Valle MD Primary Care Provider [phone] Rachel Rush PA-C Unavailable Jus Diaz MD Unavailable Bianka Del Valle MD Primary Care Provider Encounter Details Date Type Department Care Team (Latest Contact Info) Description 12/10/2023 Transcribe Orders Virtual Department [address] [place] [address] Milana Espinoza PA-C [address] [place], [place] [id number] [email or web address] Anemia, unspecified type (Primary Dx); Change in [...] Description 06/26/2025 3:30 PM EST Office Visit [facility] [address] [place] [address] Rachel Rush PA-C [address] [place] [address] 07/11/2025 11:30 AM EST Office Visit [facility] [address] [place] [address] Bianka Del Valle MD [address] [place] [address] Isabel Schmidt, CCC-FAMILY PRACTICE PHYSICIAN [address] [place] [address] 08/01/2025 10:30 AM EST Appointment [facility] [address] [place] [address] Sin Troncoso MD [address] [place] [address] [email or web address] documented as of this encounter Results * [...] focal hepatic lesion. us Milana Espinoza PA-C IMDianne US ABDOMEN Final Result documented in this [...] documented as of this encounter Care Teams Baker Chef Relationship Specialty Start Date End Date Bianka Del Valle MD [email or web address] PCP - General Family Medicine 08/26/23 03/14/24 Bianka Del Valle MD [address] [place] [address] PCP - General Family Medicine 03/15/24 Rachel Rush PA-C [address] [place] [address] Physician Manager Of Administration Hematology 08/26/23 Jus Diaz MD [address] [place] [address] [email or web address] Emergency Medicine 02/12/24 documented as of this encounter Additional Source Comments The information contained in this document represents components of the legal health record. It is not the complete legal health record.[facility]
--- OUTSIDE RECORDS SUMMARY | 2025-06-08 12:23 | XMS_ITS | Clinical Summary ---
Author Organization [facility] Address [address] [facility] [address] [place] [phone] Phone Care Team Providers Care Unemployment Examiner Name Role Phone Rachel Rush PA-C Unavailable [phone] Jus Diaz MD Unavailable [phone] Bianka Del Valle MD Primary Care Provider [...] results from prn milk of magnesia; shift foreman to give suppository when individual wakes up). [...] SOB on the way to see his rn advanced today. alf staff states pt has had a wet [...] COVID negative Wet cough is chronic per [facility] staff plan for [employer]TER [employer]ER eval r/o dysphagia--negative no signs of asp [...] been compliant with this medication at his [facility] - Eliquis continued on admission Tobacco use [...] Encounters Date Type Department Care Team Description 06/07/2025 4:00 PM EST Office Visit [facility] [address] [place] [address] Bianka Del Valle MD Korza, Laurie J, [facility]-FITTER PLACER Oropharyngeal dysphagia (Primary Dx) 05/24/2025 1:00 PM EST Office Visit [facility] [address] [place] [address] Bianka Del Valle MD Korza, Laurie J, CCC-FITTER PLACER Oropharyngeal dysphagia (Primary Dx) 05/05/2025 Plan of Care Documentation [facility] [address] [place] [address] 05/03/2025 4:00 PM EDT Office Visit [facility] [address] [place] [address] Bianka Del Valle MD Korza, Laurie J, CCC-FITTER PLACER Oropharyngeal dysphagia (Primary Dx) 04/11/2025 12:30 PM EDT - 04/11/2025 11:59 PM EDT Hospital Encounter [address] [address] Sin Troncoso MD Discharge Disposition: Home or Self Care 04/06/2025 Transcribe Orders 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 (Primary Dx); Cigarette smoker 03/16/2025 Procedure Pass [address] [address] from Last 3 Months Immunizations Immunization Administration [...] 1 0.4 Started: 01/03/2025 Smokeless Tobacco: Never Tobacco Cessation:Ready [...] Description 06/26/2025 3:30 PM EST Office Visit [facility] [address] [place] [address] Rachel Rush PAJayC [address] [place] [phone] 07/11/2025 11:30 AM EST Office Visit [facility] [address] [place] [address] Bianka Del Valle MD [address] [place] [phone] Isabel Schmidt, CCC-FITTER PLACER [address] [place] [address] 08/01/2025 10:30 AM EST Appointment [facility] [address] [place] [phone] Sin Troncoso MD [address] [place] [phone] Health Maintenance Due Date Last Done Comments [...] Completed 06/05/2020, 03/21/2020 HEPATITIS C SCREENING Completed 04/07/2024, 024 HEPATITIS A VACCINES Aged Out No long [...] this topic Medical Devices Implanted Type Area Ignition Specialist Device Identifier Shelf Expiration Date Model / Serial / Lot Left Ankle Clip Hemostasis 360deg 235cm Resolution 360 Latex Free 2.8mm Channel Bx/20ea - [id number] Implanted:Qty: 2 on 11/16/2023 by Breonna Leggett MD at [facility] [facility] 04/19/2026 [id number] / / [id number] Description:Two clips placed gastric body Procedures Procedure Name Priority Date/Time Associated Diagnosis Comments CT CHEST LUNG CANCER SCREENING INITIAL Routine 04/11/2025 12:49 PM EDT Cigarette smoker ENDOSCOPY, COLON 11/14/2024 12:4 5 PM EDT FECAL IMMUNOCHEMICAL BLOOD TEST X1 (FIT) Routine 07/23/2024 9:00 AM EST Anemia, unspecified type Fatty liver disease, nonalcoholic COMPREHENSIVE METABOLIC PANEL (CMP) Routine 07/14/2024 3:48 PM EST Anemia, unspecified [...] provided indication for this examination in Epic: Lung Cancer Screening - CURRENT smoker (20+ [...] clinician's provided indication for this examination in [facility]:Lung Cancer Screening - CURRENT smoker (20+ [...] patient meets eligibility criteria. Sin Troncoso MD IM CT CHEST Final Result * ENDOSCOPY, COLON (11/14/2024 12:45 PM EDT) Narrative Transcriptions Breonna Leggett MD - 11/14/2024 12:45 PM EDT [facility] Patient Name: Randal Kurtmarc Attending MD:: BREONNA LEGGETT MD, Procedure Date: 11/14/2024 12:45 PM Date of : 1950 Age: 73 Admit Type: Outpatient Gender: Male Room: [place] [address] Referring MD: Bianka Del Valle Exam Type: [...] monitored continuously. The Olympus adult variable colonoscope [id number] #1 was introduced through the anus and [...] 12:45 PM Procedure Code(s): --- Professional --- 65931, Colonoscopy, flexible; with removal of tumor(s), polyp(s), or other lesion(s) by snare technique --- Technical --- 98397, Colonoscopy, flexible; with removal of tumor(s), polyp(s), or other lesion(s) by snare technique CPT copyright 2021 [employer]. All rights reserved. The codes documented in this report are preliminary and upon wedding designer reviewmay be revised to meet current compliance requirements. Procedure Date: 11/14/2024 12:45:[address] [place] [id number] Bianka Del Valle MD GI PROCEDURE ORDERABLES Janeth sonny Result * (ABNORMAL) Fecal immunochemical test x1 (FIT) (07/23/2024 9:00 AM EST) Immuno Fecal Occult Positive(A ) Negative [facility] Stool (Stool) 07/23/2024 9:0 0 AM EST 07/25/2024 2:24 PM EST Milana Espinoza PA-C LAB BODY FLUIDS AND STOOL ORDER PEDRO Final Result [address] [address] * (ABNORMAL) Comprehensive metabolic panel (07/14/2024 3:48 PM EST) SODIUM 142 133 - 146 mmol/L [facility] POTASSIUM 4.0 3.3 - 5.1 mmol/L [facility] CHLORIDE 107 96 - 108 mmol/L [facility] CO2 27 21 - 35 mmol/L [facility] BUN 6 6 - 19 mg/dL [facility] CREATININE 0.40(L) 0.5 - 1.5 mg/dL [facility] GLUCOSE 98 70 - 99 mg/dL [facility] ALBUMIN 3.4(L) 3.9 - 4.8 g/dL [facility] TOTAL PROTEIN 6.4(L) 6.5 - 8.0 g/dL [facility] CALCIUM 8.7 8.4 - 10.3 mg/dL [facility] ALKALINE PHOSPHATASE 70 39 - 117 U/L [facility] TOTAL BILIRUBIN 0.3 0.0 - 1.2 mg/dL [facility] AST 15 0 - 37 U/L [facility] ALT 6 0 - 40 U/L [facility] GLOBULIN 3.0 1 - 4.8 g/dL [facility] EGFR 117 >59 mL/min/1.7 3m2 [facility] Comment:Estimated glomerular filtration rate calculated using the CKD-EPI refit equation. ANION GAP 12 10 - 20 mmol/L [facility] Blood 07/14/2024 3:48 PM EST 07/14/2024 4:05 PM EST Milana Espinoza PA-C LAB BLOOD BKR ORDERABLES Final Result Performing Organization Address City/[facility]/ZIP Co de Phone Number [address] [address] * Hepatitis C antibody, qualitative (04/07/2024 4:22 PM EDT) HCV NON-REACTIV E NON-REACTI VE [facility] Blood 04/07/2024 4:22 PM EDT 04/07/2024 4:36 PM EDT Milana Espinoza PA-C LAB BLOOD BKR ORDERABLES Final Result Performing Organization Address City/[facility]/ZIP Co de Phone Number [address] [address] from Last 3 Months or Most Recently Relevant to Health Maintenance Insurance [employer] PPO [facility]IC[facility]AC[facility] MEDICARE [place] [address] [place] [address] [facility] [employer] PPO MEDICARE REPLACEMENT [facility] Advance Directives For more information, please contact: [phone] (9AM - 5PM Leonora/[facility], Thursday-Thursday) * Full Code (Latest Code Status on File) Date Activated Date Inactivated Comments 12/03/2023 5:20 PM Question Answer Comments Code Status Confirmed With: Patient Care Teams Unemployment Examiner Relationship Specialty Start Date End Date Bianka Del Valle MD [address] [place] [phone] [email or web address] PCP - General Family Medicine 03/15/24 Rachel Rush PA-C [address] [place] [id number] [email or web address] Physician Finishing Lab Technician Hematology 08/26/23 Jus Diaz MD [address] [place] [phone] [email or web address] Emergency Medicine 02/12/24 Additional Source Comments The information contained in this document represents components of the legal health record. It is not the complete legal health record.[facility]
== END 2025-06-08 10:49 | disposition home or self-care (01) ==
LOC: HO.HCS 10:15
PROVIDERS: PCP Family Medicine; Visit Provider Nurse Practitioner Family
DX: I50.32 Chronic diastolic (congestive) heart failure (principal); I31.39 Other pericardial effusion (noninflammatory); I25.10 Atherosclerotic heart disease of native coronary artery without angina pectoris; I10 Essential (primary) hypertension; E78.5 Hyperlipidemia, unspecified
CPT/HCPCS: 99214; G2211

== ENCOUNTER → 2025-06-08 10:14 | Outpatient (BNVA) | payer MEDICARE, SELFPAY | PROVIDERS: PCP Family Medicine; Visit Provider Nurse Practitioner Family | DX: I11.0 Hypertensive heart disease with heart failure (principal); I50.32 Chronic diastolic (congestive) heart failure; I25.10 Atherosclerotic heart disease of native coronary artery without angina pectoris; I31.39 Other pericardial effusion (noninflammatory); F17.210 Nicotine dependence, cigarettes, uncomplicated; E78.5 Hyperlipidemia, unspecified; Z79.899 Other long term (current) drug therapy | CPT/HCPCS: 99212 ==